=== PATIENT | male | born 1985 | race Caucasian/White ===

== ENCOUNTER 2020-03-16 08:59 | Emergency (ER) | payer SELFPAY ==
[2020-03-16 09:01] VITALS: BP 193/108; PULSE 90; RESP 16; TEMP 36.1; O2SAT 98; BMI 31.1
--- NOTE | 2020-03-16 09:07 | CT_ITS ---
EXAMINATION: CT ABDOMEN AND PELVIS WITHOUT CONTRAST CLINICAL INFORMATION: Left flank pain, hematuria and kidney stones. COMPARISON: None TECHNIQUE: Multidetector volumetric imaging was performed from the superior aspect of the liver through the pubic symphysis. Sagittal and coronal reformatted images were obtained on the technologist's workstation. This CT examination was performed using dose optimization techniques as appropriate, variously including the following: *Automated exposure control *Adjustment of mA and/or kV according to patient size (this includes techniques or standardized protocols for targeted exams where dose is matched to indication/reason for exam; i.e. extremities or head) *Use of iterative reconstruction technique DLP: 719 mGy-cm FINDINGS: LUNG BASES: The lung bases are clear. The heart size is normal. LIVER, GALLBLADDER, AND BILIARY TREE: The liver is normal in size, shape, and attenuation. No focal hepatic lesion or biliary ductal dilatation is present. The gallbladder is unremarkable with no evidence of radiopaque gallstones, gallbladder wall thickening, or obvious pericholecystic inflammatory changes. PANCREAS: Unremarkable. SPLEEN: Unremarkable. ADRENAL GLANDS: Unremarkable. KIDNEYS AND URETERS: The kidneys are normal in size, shape, and attenuation. There There there are several 3 mm upper, mid and lower pole left renal calculi. The largest lower pole left renal calculi measures 5 mm. Is no radiopaque calculi seen in the right kidney. No caliectasis or hydronephrosis seen. BLADDER: Unremarkable. GASTROINTESTINAL TRACT: There is scattered stool and gas seen throughout the colon without distention. The small bowel loops are normal caliber. Appendix and the IC junction is normal. The stomach is nondistended. No inflammatory changes seen in the abdomen. ABDOMINAL WALL: No significant hernia is appreciated. LYMPH NODES: Normal. VASCULAR: Unremarkable. PELVIC VISCERA: No free fluid or free air seen. The prostate gland is normal size with central gland constipation. OSSEOUS STRUCTURES: No lytic or sclerotic process seen. CT/CT abdomen pelvis wo con IMPRESSION: Multiple left renal calculi with the largest radiopaque calculi lower pole measuring 5 mm. No caliectasis or hydronephrosis seen. No radiopaque right renal calculi seen. Normal appendix. Mild constipation.
--- NOTE | 2020-03-16 09:36 | ED_ITS ---
HPI - Abdominal Pain General Chief Complaint: Abdominal Pain Stated Complaint: Flank pain Time Seen by Provider: 03/16/20 09:06 Source: patient Mode of arrival: ambulatory Limitations: no limitations History of Present Illness HPI narrative: 35 y/o male with history of kidney stones since age 13 requiring multiple surgical interventions in the past presents with left flank pain for the last 2 days. He states last night the pain got worse and was doubling him over. He developed bloody urine and painful urination last night as well. He denies fever, chills, N/V. He states the pain starts in his left flank and ra diates throughout his whole abdomen. MD elicited complaint: flank pain Pertinent past history: kidney stones Onset (ago): day(s) (2) Pain Consistency: constant Location: L flank Severity: severe Pain scale (0-10): 10 Quality: sharp Radiation: LLQ Migration to: no migration Exacerbating factors: movement Relieving factors: nothing Context: history of similar episodes Associated symptoms: dysuria and hematuria Related Data Previous Rx's Medication Instructions Recorded erythromycin 1 appl OPHTHALMIC (EYE) Q8H #3.5 g 03/16/20 oxycodone 5 mg PO Q8H PRN #5 tab 03/16/20 tamsulosin [Flomax] 0.4 mg PO BEDTIME #10 cap 03/16/20 Allergies Allergy/AdvReac Type Severity Reaction Status Date / Time From YELLOW JACKET VENOM Allergy Severe ANAPHYLAXIS Uncoded 12/10/19 15:35 TREATMENT Review of Systems Review of Systems Constitutional: No Fever, No Chills ENT/Mouth: No sore throat, No Rhinorrhea, No Swallowing Difficulty Eyes: + Eye Pain, No Swelling, + Redness Cardiovascular: No Chest Pain, No SOB, No Orthopnea, No Edema Respiratory: No Cough, No Sputum, No Wheezing, No dyspnea Gastrointestinal: No Nausea, No Vomiting, No Diarrhea, + abdominal Pain, No Hematochezia, No Melena Genitourinary: + Dysuria, No Urinary Frequency, + Hematuria Musculoskeletal: No joint pain, No Myalgias Skin: No Skin Lesions, No rash Neuro: No Weakness, No Numbness, No Dizziness, No Headache Heme/Lymph: No Bruising, No Lymphadenopathy Endocrine: No Polyuria, No Polydipsia Physical Exam Vital Signs: Vital Signs: Last Vital Signs Temp 97.7 F 03/16/20 11:11 Pulse 80 12/23/20 11:11 Resp 15 03/16/20 11:11 BP 143/89 H 03/16/20 11:11 Pulse Ox 98 03/16/20 11:11 Body Mass Index 31.1 Appearance: Alert. Oriented X3. No acute distress. Eyes: Pupils equal, round and reactive to light. Mild conjunctival injection of lower left eye, no drainage ENT: Pharynx normal. Neck: Normal inspection. Neck supple. CVS: Normal heart rate and rhythm. Pulses normal. Respiratory: No respiratory distress. Breath sounds normal. Abdomen: Soft with mild diffuse tenderness, mostly in LLQ. CVA tenderness on the left +BS x4 Skin: Skin warm and dry. Normal skin color. Normal skin turgor. No rashes. Extremities: No lower extremity edema. Neuro: Oriented X 3. No motor deficit. No sensory deficit. Course Course Course Narrative: 35 yo male presenting with left flank pain, hematuria, dysuria - hx kidney stones. Concern for obstructing stone, possible infection. Labs and CT scan pending. IVF and Toradol ordered for now. Significant elevation of BP noted. no hx HTN, likely pain related. Denies chest pain, headache vision changes. He does c/o L>R eye pain, redness, and drainage, daughter with pink eye at home. Will terat for bacterial conjunctivitis. Reevaluation(s) Reevaluation #1: CT scan shows multiple left renal calculi with the largest calculi in lower pole measuring 5mm. No hydronephrosis. Patient likely passed a stone last night. Will give dose of Decadron for ureteral inflammation and Flomax while awaiting UA. Reevaluation #2: UA negative for infection or blood. Pain controlled after Toradol. He likely passed a stone this morning. Will refer to Urology. Stable for d/c MDM - Abdominal Pain Lab Data Result diagrams: 03/16/20 09:33 03/16/20 09:33 Labs: Lab Results 03/16/20 03/16/20 03/16/20 Range/Units 09:33 09:33 11:07 WBC 9.5 (4.8-10.8) X10*3/uL RBC 5.29 (4.60-5.80) X10*6/uL Hgb 16.5 (14.0-18.0) g/dl Hct 48.0 (42-52) % MCV 90.7 (80-98) fL MCH 31.2 (27.0-33.0) pg MCHC 34.4 (31.0-36.0) g/dl RDW 12.1 (11.0-16.0) % Plt Count 260 (160-400) X10*3/uL MPV 9.8 (9.4-12.4) fL Immature Gran % (Auto) 1.4 H (0.0-0.4) % Neut % (Auto) 57.6 (45-73) % Lymph % (Auto) 27.1 (20-40) % [place] % (Auto) 9.9 (2-11) % Eos % (Auto) 3.0 (0-4) % Baso % (Auto) 1.0 (0-2) % Lymph # (Auto) 2.6 (1.2-4.9) X10*3/uL [place] # (Auto) 0.9 (0.1-1.2) X10*3/uL Eos # (Auto) 0.3 (0.0-0.4) X10*3/uL Baso # (Auto) 0.1 (0.0-0.2) X10*3/uL Abs Immat Gran (auto) 0.13 H (0.00-0.03) X10*3/uL Absolute Neuts (auto) 5.5 (2.0-8.3) X10*3/uL Absolute Nucleated RBC 0.000 (0.0-0.012) X10*3/uL Nucleated RBC % (auto) 0.0 (0.0-0.2) /100WBC Sodium 138 (135-145) mmol/L Potassium 4.4 (3.3-5.1) mmol/l Chloride 103 (96-108) mmol/L Carbon Dioxide 28 (22-29) mmol/L Anion Gap 11 L (12-20) BUN 15 (9-16) mg/dL Creatinine 0.75 (0.5-1.4) mg/dL Estim Creat Clear Calc 173.3 Estimated GFR > 60 Random Glucose 110 (60-115) mg/dL Calcium 9.0 (8.4-10.2) mg/dL Magnesium 1.9 (1.6-2.6) mg/dL Total Bilirubin 0.5 (0.0-1.0) mg/dL Direct Bilirubin 0.2 (0.0-0.5) mg/dL AST 67 H (5-37) U/L ALT 124 H (0-40) U/L Alkaline Phosphatase 59 (39-117) U/L Total Protein 7.4 (6.5-8.0) g/dL Albumin 4.4 (3.5-5.0) g/dL Lipase 30 (8-78) U/L Urine Color YELLOW Urine Appearance CLEAR Urine pH 6.0 (5.0-8.0) Ur Specific [place] 1.025 (1.005-1.025) Urine Protein NEG (NEG-TRACE) MG/DL Urine Glucose (UA) NEG (NEG) MG/DL Urine Ketones NEG (NEG) MG/DL Urine Blood NEG (NEG) Urine Nitrite NEG (NEG) Ur Leukocyte Esterase NEG (NEG) Critical Care Time Critical Care Time Critical Care Time: No Discharge Plan Discharge Clinical Impression: Calculus of kidney Patient Disposition: Home, Self-Care Instructions: Kidney Stones (ED), How to Strain Your Urine (ED) Additional Instructions: Your CT scan showed kidney stones within your kidney, none blocking your urinary tract. You likely passed a stone on your own. Your urine showed no blood or infection. You should follow up with a Urology doctor. If you have recurrent severe pain, come back to the ER for further evaluation. Prescriptions: New tamsulosin [Flomax] 0.4 mg capsule 0.4 mg PO BEDTIME Qty: 10 RF: 0 oxycodone 5 mg tablet 5 mg PO Q8H PRN (Reason: pain) Qty: 5 RF: 0 erythromycin 5 mg/gram (0.5 %) ointment 1 appl ophthalmic (eye) Q8H Qty: 3.5 RF: 0 Referrals: Tyson Robin MD [Physician] - 2 days Stand Alone Forms: Work/School Release Interventions: ED Discharge Assessment Last Done: 03/16/20 11:36 Discharge Date/Time: 03/16/20 11:39 [facility] Past Medical History Attestation statement: The following information was validated with the patient. Medical History Kidney stone Social History Social History Smoked in Last 30 Days: Yes Use of substances other than those prescribed or required for medical reasons: No Advance Directives: No Advance Directives Information Provided: Yes
[2020-03-16 09:42] LABS: MANUAL DIFF FLAG NO
[2020-03-16] MEDS: Ketorolac Tromethamine 30 MG/ML VIAL IVPUSH (09:42)
[2020-03-16] MEDS: 0.9 % Sodium Chloride 1,000 ML 999 ML IVCONT (09:43)
[2020-03-16 09:46] LABS: Basophils Absolute Auto 0.1 X10*3/uL (0.0-0.2); Eosinophils Absolute Auto 0.3 X10*3/uL (0.0-0.4); Hemoglobin 16.5 g/dl (14.0-18.0); Imm Gran Abs Auto 0.13 X10*3/uL (0.00-0.03); Imm Gran Pct Auto 1.4 % (0.0-0.4); Lymphocytes Absolute Auto 2.6 X10*3/uL (1.2-4.9); Lymphocytes Percent Auto 27.1 % (20-40); Mean Corpuscular HGB Conc 34.4 g/dl (31.0-36.0); Mean Corpuscular Hemoglobin 31.2 pg (27.0-33.0); Mean Corpuscular Volume 90.7 fL (80-98); Mean Platelet Volume 9.8 fL (9.4-12.4); Monocytes Absolute Auto 0.9 X10*3/uL (0.1-1.2); Monocytes Percent Auto 9.9 % (2-11); Neutrophils Absolute Auto 5.5 X10*3/uL (2.0-8.3); Neutrophils Percent Auto 57.6 % (45-73); Platelet Count 260 X10*3/uL (160-400); Red Blood Count 5.29 X10*6/uL (4.60-5.80); Red Cell Distribution Width 12.1 % (11.0-16.0); White Blood Count 9.5 X10*3/uL (4.8-10.8)
[2020-03-16 09:51] VITALS: BP 144/91; PULSE 87; RESP 20; TEMP 36.5; O2SAT 97
[2020-03-16 10:15] LABS: Alanine Aminotransferase 124 U/L (0-40); Albumin Level 4.4 g/dL (3.5-5.0); Alkaline Phosphatase 59 U/L (39-117); Anion Gap 11 (12-20); Aspartate Amino Transferase 67 U/L (5-37); Bilirubin Direct 0.2 mg/dL (0.0-0.5); Bilirubin Total 0.5 mg/dL (0.0-1.0); Blood Urea Nitrogen 15 mg/dL (9-16); Carbon Dioxide 28 mmol/L (22-29); Chloride 103 mmol/L (96-108); Creatinine Clr Calc Pharmacy 173.3; Estimated Glomerular Filt Rate > 60; Glucose Random 110 mg/dL (60-115); Lipase 30 U/L (8-78); Magnesium 1.9 mg/dL (1.6-2.6); Potassium 4.4 mmol/l (3.3-5.1); Sodium 138 mmol/L (135-145); Total Protein 7.4 g/dL (6.5-8.0)
[2020-03-16] MEDS: Tamsulosin HCL 0.4 MG CAPSULE PO (10:59)
[2020-03-16 11:11] VITALS: BP 143/89; PULSE 80; RESP 15; TEMP 36.5; O2SAT 98
[2020-03-16 11:19] LABS: Glucose Urine UA NEG (NEG); Leukocyte Esterase Urine NEG (NEG); Nitrite Urine NEG (NEG); Specific Gravity - Urine 1.025 (1.005-1.025); Urine Blood NEG (NEG); Urine Ketones NEG (NEG); Urine Protein NEG (NEG-TRACE)
[2020-03-16 11:20] LABS: Appearance Urine CLEAR; Color Urine YELLOW
== END 2020-03-16 11:39 | disposition home or self-care (01) ==
PROVIDERS: Physician Assistant; Emergency Provider Emergency Medicine
DX: N20.0 Calculus of kidney (principal); Z87.442 Personal history of urinary calculi
CPT/HCPCS: 36415; 74176; 80048; 80076; 81003; 83690; 83735; 85025; 96361; 96374; 96375; 99285; J1100; J1885

== ENCOUNTER 2020-10-01 13:40 | Emergency (ER) | payer MEDICAID, SELFPAY ==
--- NOTE | ~2020-10-01 | XR_ITS ---
EXAMINATION: XR FOREARM, LEFT CLINICAL INFORMATION: Pain COMPARISON: None TECHNIQUE: AP and lateral views of the left forearm were obtained. FINDINGS: The bones and soft tissues are normal. No fracture. Imaged portions of the elbow and wrist are unremarkable. Possible linear radiopaque foreign body overlying the soft tissues of the distal humerus. XR/XR forearm LT 2V IMPRESSION: Possible linear radiopaque foreign body overlying the soft tissues of the distal humerus.
[2020-10-01 13:43] VITALS: BP 139/92; PULSE 102; RESP 16; O2SAT 96; BMI 31.8
--- NOTE | 2020-10-01 14:51 | ED_ITS ---
HPI - Skin/Abscess/Foreign Bdy General Chief complaint: Skin/Abscess/Foreign Body Stated complaint: NAIL PW L ARM Time Seen by Provider: 10/01/20 14:49 Source: patient Limitations: no limitations History of Present Illness HPI narrative: This is a 35-year-old male who was at work yesterday when a screw got stuck in his left forearm. The patient was unloading citing from a truck when asked grew punctured his forearm, going about 2 cm. Patient was able to remove the screw and states there is no screw or other foreign body remaining in there. He has noted some localized pain and redness to the site. Denies any fever. He denies any history of diabetes. His last tetanus immunization he believes was in about 2004. He did have some feeling of numbness and tingling to his hand earlier Related Data Previous Rx's Medication Instructions Recorded erythromycin 1 appl OPHTHALMIC (EYE) Q8H #3.5 g 03/16/20 oxycodone 5 mg PO Q8H PRN #5 tab 03/16/20 tamsulosin [Flomax] 0.4 mg PO BEDTIME #10 cap 03/16/20 cephalexin [Keflex] 750 mg PO TID #20 cap 10/01/20 Allergies Allergy/AdvReac Type Severity Reaction Status Date / Time From YELLOW JACKET VENOM Allergy Severe ANAPHYLAXIS Uncoded 12/10/19 15:35 TREATMENT Review of Systems Constitutional: Constitutional: Denies fever(s) Integumentary/Breasts: Comments: Left forearm puncture wound/erythema Neurologic: Denies focal weakness and Reports paresthesias (Some partial numbness and tingling to left hand) [facility] Past Medical History Medical History Kidney stone Social History Social History Advance Directives: Yes Advance Directives Information Provided: Yes Advance Directives on File: No Physical Exam Vital Signs: Vital Signs: Last Vital Signs Temp 97.8 F 10/01/20 15:29 Pulse 90 10/01/20 15:29 Resp 20 10/01/20 15:29 BP 146/96 H 10/01/20 15:29 Pulse Ox 98 10/01/20 15:29 Body Mass Index 31.8 Const: General: cooperative and healthy appearing Orientation/consciousness: patient oriented x3 Eyes: General: appearance normal, both eyes and all related structures Resp: Effort & Inspection: normal respiratory effort Auscultation: clear to auscultation bilaterally Cardio: Rate: regular rate Rhythm: regular rhythm Heart sounds: S1 normal heart sound present and S2 normal heart sound present Neuro: General: patient oriented x3 Extrem: Other: Puncture wound to left proximal forearm, with localized erythema about 2 in in diameter. No drainage or fluctuance. Left hand is neurovascular intact normal distal pulses MDM - Skin/Abscess/Foreign Bdy MDM Narrative Medical decision making narrative: Patient with a puncture wound from a screw to his forearm yesterday. Tetanus was updated. The patient was given Keflex 1 g p.o. ( I ordered Ancef 1 g IV but the patient refused parental antibiotics). X- ray showed no foreign body in the area of the patient's wound. The patient's wound was scrubbed with saline, irrigated and antibiotic ointment and a dressing were applied. Patient is being prescribed Keflex and was advised that he is to keep a close eye for any signs of worsening infection given that this occurred yesterday and artery shows some evidence of infection Discharge Plan Discharge Clinical Impression: Puncture wound Patient Disposition: Home, Self-Care Instructions: Puncture Wound (ED) Additional Instructions: Soak the wound in warm water for 15 minutes to 3 times a day. Apply antibiotic ointment such as Polysporin to the wound twice a day. Take the cephalexin as prescribed. Return for any worsened symptoms such as increased redness or swelling. Prescriptions: New cephalexin [Keflex] 750 mg capsule 750 mg PO TID Qty: 20 RF: 0 No Action tamsulosin [Flomax] 0.4 mg capsule 0.4 mg PO BEDTIME Qty: 10 RF: 0 oxycodone 5 mg tablet 5 mg PO Q8H PRN (Reason: pain) Qty: 5 RF: 0 erythromycin 5 mg/gram (0.5 %) ointment 1 appl ophthalmic (eye) Q8H Qty: 3.5 RF: 0 Interventions: ED Discharge Assessment Last Done: 10/01/20 15:29 Discharge Date/Time: 10/01/20 15:31
[2020-10-01] MEDS: Diphth,Pertus(ACell),Tet Adult 0.5 ML SYRINGE IM (15:01)
[2020-10-01] MEDS: cephALEXin 500 MG CAPSULE 1000 MG PO (15:08)
[2020-10-01 15:29] VITALS: BP 146/96; PULSE 90; RESP 20; TEMP 36.6; O2SAT 98
== END 2020-10-01 15:31 | disposition home or self-care (01) ==
PROVIDERS: Emergency Provider Emergency Medicine
DX: S51.832A Puncture wound without foreign body of left forearm, initial encounter (principal); W45.0XXA Nail entering through skin, initial encounter; Y93.89 Activity, other specified; Y92.9 Unspecified place or not applicable; Y99.0 Civilian activity done for income or pay
CPT/HCPCS: 73090; 90471; 90715; 99283; 99284

== ENCOUNTER 2020-10-05 10:40 | Emergency (ER) | payer MEDICAID, SELFPAY ==
--- NOTE | ~2020-10-05 | XR_ITS ---
EXAMINATION: RIGHT HAND AND RIGHT FOREARM CLINICAL INFORMATION: Status post dog bite, infection. COMPARISON: None TECHNIQUE: 3 views right hand and 2 views right forearm FINDINGS: Right forearm: There is no visible fracture, dislocation or subluxation involving the right radius or the ulna. Elbow joint appears normal. Right hand: There is a small bone fragment proximal to the proximal end of fifth metacarpal likely old avulsion injury. There is moderate soft tissue swelling along the ulnar aspect of palm/hypothenar eminence but no soft tissue gas or foreign body seen following dog bite. XR/XR forearm RT 2V IMPRESSION: Unremarkable right forearm. Moderate soft tissue swelling along the right ulnar aspect/hyperthenar eminence of the arm. No radiopaque foreign body or gas seen.
--- NOTE | ~2020-10-05 | XR_ITS ---
EXAMINATION: RIGHT HAND AND RIGHT FOREARM CLINICAL INFORMATION: Status post dog bite, infection. COMPARISON: None TECHNIQUE: 3 views right hand and 2 views right forearm FINDINGS: Right forearm: There is no visible fracture, dislocation or subluxation involving the right radius or the ulna. Elbow joint appears normal. Right hand: There is a small bone fragment proximal to the proximal end of fifth metacarpal likely old avulsion injury. There is moderate soft tissue swelling along the ulnar aspect of palm/hypothenar eminence but no soft tissue gas or foreign body seen following dog bite. XR/XR hand RT min 3V IMPRESSION: Unremarkable right forearm. Moderate soft tissue swelling along the right ulnar aspect/hyperthenar eminence of the arm. No radiopaque foreign body or gas seen.
[2020-10-05 10:47] VITALS: BP 152/108; PULSE 116; RESP 18; TEMP 37.3; O2SAT 96; BMI 32.5
[2020-10-05] MEDS: Ibuprofen 800 MG TABLET PO (11:00)
[2020-10-05] MEDS: HYDROcodone Bit/Acetam 5/325 TABLET 1 TAB PO (11:00)
[2020-10-05] MEDS: Amoxicillin/Potassium Clav 875 MG TABLET PO (11:01)
--- NOTE | 2020-10-05 11:13 | ED_ITS ---
HPI - Extremity Problem General Chief complaint: Extremity Injury, Upper Stated complaint: rt hand injury Time Seen by Provider: 10/05/20 10:53 Source: patient Mode of arrival: ambulatory Limitations: no limitations History of Present Illness HPI Narrative: 35 y/ male presenting with right hand pain and forearm pain after he fell onto concrete last night. He reports his dog ran under him and took out his legs causing him to fall backward with all of his weight onto his right hand. He sustained a laceration to the back his hand between his knuckles of 4th and 5th fingers. He washed out the wound with H2O2 last night and went to bed. This morning he woke up with extreme pain in his right hand that radiates all the way up his forearm to his elbow. He has very limited ROM of his fingers and cant move his pinky finger at all. He reports being sweaty this morning and burning hot with a subjective fever at home. He denies numbness or tingling. MD Complaint: extremity pain and joint paint Onset (ago): hour(s) (12) Pain Consistency: constant Location: right and upper extremity Severity scale (1-10): 9 Quality: burning, aching and sharp Radiation: proximal Relieving factors: cold therapy, immobilization and elevation Exacerbating factors: range of motion and palpation Associated symptoms: fever Related Data Previous Rx's Medication Instructions Recorded erythromycin 1 appl OPHTHALMIC (EYE) Q8H #3.5 g 03/16/20 oxycodone 5 mg PO Q8H PRN #5 tab 03/16/20 tamsulosin [Flomax] 0.4 mg PO BEDTIME #10 cap 03/16/20 cephalexin [Keflex] 750 mg PO TID #20 cap 10/01/20 cephalexin 500 mg PO Q6H 7 Days #28 cap 10/05/20 hydrocodone-acetaminophen 1 tab PO Q4-6H PRN #5 tab 10/05/20 Allergies Allergy/AdvReac Type Severity Reaction Status Date / Time From YELLOW JACKET VENOM Allergy Severe ANAPHYLAXIS Uncoded 12/10/19 15:35 TREATMENT Review of Systems Review of Systems: Constitutional: + Fever, No Chills Cardiovascular: No Chest Pain, No SOB Respiratory: No Cough, No Sputum, No Wheezing, No dyspnea Gastrointestinal: No Nausea, No Vomiting, No Diarrhea, No abdominal Pain Genitourinary: No Dysuria, No Urinary Frequency, No Hematuria Musculoskeletal: + joint pain, No Myalgias Skin: + Skin Lesions, No rash Neuro: No Weakness, No Numbness, No Dizziness, No Headache Psych: No Anxiety/Panic, No Depression Heme/Lymph: No Bruising, No Lymphadenopathy Endocrine: No Polyuria, No Polydipsia [facility] Past Medical History Medical History Kidney stone Social History Social History (Updated 10/05/20 @ 13:35 by ESMER Rosenbaum) Alcohol intake: current Alcohol intake frequency: 0-2 drinks per day Physical Exam Vital Signs: Vital Signs: Last Vital Signs Temp 99.2 F 10/05/20 10:47 Pulse 116 H 10/05/20 10:47 Resp 18 10/05/20 10:47 BP 152/108 H 10/05/20 10:47 Pulse Ox 96 10/05/20 10:47 Body Mass Index 32.5 Appearance: Alert. Oriented X3. Appears to be in pain, diaphoretic HEENT: normal inspection CVS: Tachycardic, regular rhythm. Pulses normal. Respiratory: No respiratory distress. Lungs CTAB Skin: Skin warm, diaphoretic. Normal skin color. Normal skin turgor. No rashes. Extremities: right hand with deep complex laceration on the dorsal aspect between MCP 4 and 5. warm, erythematous and tender with serous drainage. Very te nder. unable to extend 5th digit, able to flex. good cap refill. Neuro: Oriented X 3. No sensory deficit, limited movement of 5th digit. Course Course Course Narrative: 35 y/o male presenting with right hand pain and swelling with laceration after a fall last night. Concern for fracture and acute infection, possibly into the joint space. Possible extensor tendon injury with inability to extend 5th digit on right hand. XR's ordered. Dr. Griffin evaluated - blood work ordered and Ortho contacted for recs ?washout. Given dose of IV antibiotics now as well as pain control. Wound was irrigated extensively was saline. Reevaluation(s) Reevaluation #1: Ortho evaluated the patient at the bedside - recommending washout in the OR tomorrow with Dr. Lehman. WBC 18.8 with a normal lactic acid. Cultures sent. Will continue PO abx for infection of the hand. Ortho aware of leukocytosis and ok with proceeding with washout tomorrow. Stable for d/c with antibiotics, pain control and f/u with Ortho for washout tomorrow. Patient placed in splint by tach with adequate placement, sling provided for comfort. Pain and tachycardia improved upon discharge. Consultations Consultation #1: Ortho - Petra Simpson PA-C MDM - Extremity (Nontraumatic) Lab Data Result diagrams: 10/05/20 12:03 10/05/20 12:02 Labs: Lab Results 10/05/20 10/05/20 10/05/20 Range/Units 12:02 12:02 12:03 WBC (4.8-10.8) X10*3/uL RBC (4.60-5.80) X10*6/uL Hgb (14.0-18.0) g/dl Hct (42-52) % MCV (80-98) fL MCH (27.0-33.0) pg MCHC (31.0-36.0) g/dl RDW (11.0-16.0) % Plt Count (160-400) X10*3/uL MPV (9.4-12.4) fL Immature Gran % (Auto) (0.0-0.4) % Neut % (Auto) (45-73) % Lymph % (Auto) (20-40) % [place] % (Auto) (2-11) % Eos % (Auto) (0-4) % Baso % (Auto) (0-2) % Lymph # (Auto) (1.2-4.9) X10*3/uL [place] # (Auto) (0.1-1.2) X10*3/uL Eos # (Auto) (0.0-0.4) X10*3/uL Baso # (Auto) (0.0-0.2) X10*3/uL Abs Immat Gran (auto) (0.00-0.03) X10*3/uL Absolute Neuts (auto) (2.0-8.3) X10*3/uL Absolute Nucleated RBC (0.0-0.012) X10*3/uL Nucleated RBC % (auto) (0.0-0.2) /100WBC Smear Tech's Comments ESR 7 (0-15) MM/HR Sodium 137 (135-145) mmol/L Potassium 4.3 (3.3-5.1) mmol/L Chloride 100 (96-108) mmol/L Carbon Dioxide 23 (22-29) mmol/L Anion Gap 18 (12-20) BUN 9 (9-16) mg/dL Creatinine 0.82 (0.5-1.4) mg/dL Estim Creat Clear Calc 161.7 Estimated GFR > 60 Random Glucose 110 (60-115) mg/dL Lactic Acid 1.4 (0.5-2.0) mmol/L Calcium 9.9 D (8.4-10.2) mg/dL Magnesium 1.4 L* (1.6-2.6) mg/dL C-Reactive Protein 1.47 H (< or = 0.50) mg/dL 10/05/20 10/05/20 Range/Units 12:03 12:03 WBC 18.8 H (4.8-10.8) X10*3/uL RBC 5.78 (4.60-5.80) X10*6/uL Hgb 17.1 (14.0-18.0) g/dl Hct 50.0 (42-52) % MCV 86.5 (80-98) fL MCH 29.6 (27.0-33.0) pg MCHC 34.2 (31.0-36.0) g/dl RDW 13.7 (11.0-16.0) % Plt Count 285 (160-400) X10*3/uL MPV 9.7 (9.4-12.4) fL Immature Gran % (Auto) 1.5 H (0.0-0.4) % Neut % (Auto) 78.3 H (45-73) % Lymph % (Auto) 10.1 L (20-40) % [place] % (Auto) 8.4 (2-11) % Eos % (Auto) 1.1 (0-4) % Baso % (Auto) 0.6 (0-2) % Lymph # (Auto) 1.9 (1.2-4.9) X10*3/uL [place] # (Auto) 1.6 H (0.1-1.2) X10*3/uL Eos # (Auto) 0.2 (0.0-0.4) X10*3/uL Baso # (Auto) 0.1 (0.0-0.2) X10*3/uL Abs Immat Gran (auto) 0.29 H (0.00-0.03) X10*3/uL Absolute Neuts (auto) 14.7 H (2.0-8.3) X10*3/uL Absolute Nucleated RBC 0.000 (0.0-0.012) X10*3/uL Nucleated RBC % (auto) 0.0 (0.0-0.2) /100WBC Smear Tech's Comments VERIFIED ESR (0-15) MM/HR Sodium Cancelled (135-145) mmol/L Potassium Cancelled (3.3-5.1) mmol/L Chloride Cancelled (96-108) mmol/L Carbon Dioxide Cancelled (22-29) mmol/L Anion Gap Cancelled (12-20) BUN Cancelled (9-16) mg/dL Creatinine Cancelled (0.5-1.4) mg/dL Estim Creat Clear Calc Cancelled Estimated GFR Cancelled Random Glucose Cancelled (60-115) mg/dL Lactic Acid (0.5-2.0) mmol/L Calcium Cancelled (8.4-10.2) mg/dL Magnesium (1.6-2.6) mg/dL C-Reactive Protein Cancelled (< or = 0.50) mg/dL Discharge Plan Discharge Clinical Impression: Infection of hand Fracture of hand Qualifiers: Encounter type: initial encounter Fracture type: closed Laterality: right Qualified Code(s): S62.91XA - Unspecified fracture of right wrist and hand, initial encounter for closed fracture Patient Disposition: Home, Self-Care Instructions: Hand Fracture (ED), Acute Wounds (ED) Additional Instructions: Your x-ray showed a small fracture in your hand upon review by the Hand Surgeon. There is concern for infection and injury to the tendons. Present for joint wash out tomorrow as discussed with Orthopedics. Keep the splint in place until seen by Ortho tomorrow. Take the prescribed medication as needed for severe pain. DO NOT drink alcohol with this medication. Elevate and ice your hand when possible. Wear the sling as needed for comfort. If you develop worsening pain, fever or any other concerning symptom come back to the ER for further evaluation. Prescriptions: New cephalexin 500 mg capsule 500 mg PO Q6H 7 Days Qty: 28 RF: 0 hydrocodone-acetaminophen 5-325 mg tablet 1 tab PO Q4-6H PRN (Reason: pain) Qty: 5 RF: 0 No Action tamsulosin [Flomax] 0.4 mg capsule 0.4 mg PO BEDTIME Qty: 10 RF: 0 oxycodone 5 mg tablet 5 mg PO Q8H PRN (Reason: pain) Qty: 5 RF: 0 erythromycin 5 mg/gram (0.5 %) ointment 1 appl ophthalmic (eye) Q8H Qty: 3.5 RF: 0 cephalexin [Keflex] 750 mg capsule 750 mg PO TID Qty: 20 RF: 0 Stand Alone Forms: Work/School Release Interventions: ED Discharge Assessment Last Done: 10/05/20 13:17 Discharge Date/Time: 10/05/20 13:18
[2020-10-05] MEDS: Piperacillin Sodium/Tazobactam 3.375 GM in 0.9 % Sodium Chloride 50 ML IV (12:10)
[2020-10-05 12:12] LABS: Basophils Absolute Auto 0.1 X10*3/uL (0.0-0.2); Basophils Percent Auto 0.6 % (0-2); Eosinophils Absolute Auto 0.2 X10*3/uL (0.0-0.4); Eosinophils Percent Auto 1.1 % (0-4); Imm Gran Abs Auto 0.29 X10*3/uL (0.00-0.03); Imm Gran Pct Auto 1.5 % (0.0-0.4); Lymphocytes Absolute Auto 1.9 X10*3/uL (1.2-4.9); Lymphocytes Percent Auto 10.1 % (20-40); MANUAL DIFF FLAG SCAN; Mean Corpuscular HGB Conc 34.2 g/dl (31.0-36.0); Mean Corpuscular Hemoglobin 29.6 pg (27.0-33.0); Mean Corpuscular Volume 86.5 fL (80-98); Mean Platelet Volume 9.7 fL (9.4-12.4); Monocytes Absolute Auto 1.6 X10*3/uL (0.1-1.2); Monocytes Percent Auto 8.4 % (2-11); Neutrophils Absolute Auto 14.7 X10*3/uL (2.0-8.3); Neutrophils Percent Auto 78.3 % (45-73); Platelet Count 285 X10*3/uL (160-400); Red Blood Count 5.78 X10*6/uL (4.60-5.80); Red Cell Distribution Width 13.7 % (11.0-16.0); SCAN SMEAR FLAG 1; White Blood Count 18.8 X10*3/uL (4.8-10.8)
[2020-10-05 12:14] LABS: Hemoglobin 17.1 g/dl (14.0-18.0)
[2020-10-05 12:33] LABS: SLIDE REVIEW VERIFIED
[2020-10-05 12:39] LABS: Lactic Acid 1.4 mmol/L (0.5-2.0)
[2020-10-05 12:53] LABS: Erythrocyte Sedimentation Rate 7 MM/HR (0-15)
[2020-10-05 12:53] LABS: Anion Gap 18 (12-20); Blood Urea Nitrogen 9 mg/dL (9-16); C Reactive Protein 1.47 mg/dL (< or = 0.50); Calcium 9.9 mg/dL (8.4-10.2); Carbon Dioxide 23 mmol/L (22-29); Chloride 100 mmol/L (96-108); Creatinine Clr Calc Pharmacy 161.7; Estimated Glomerular Filt Rate > 60; Glucose Random 110 mg/dL (60-115); Magnesium 1.4 mg/dL (1.6-2.6); Potassium 4.3 mmol/L (3.3-5.1); Sodium 137 mmol/L (135-145)
[2020-10-05] MEDS: Magnesium Oxide 400 MG TABLET 800 MG PO (13:02)
== END 2020-10-05 13:18 | disposition home or self-care (01) ==
PROVIDERS: Physician Assistant; Emergency Provider Emergency Medicine
DX: S62.91XA Unspecified fracture of right hand, initial encounter for closed fracture (principal); L08.9 Local infection of the skin and subcutaneous tissue, unspecified; M25.531 Pain in right wrist; W01.0XXA Fall on same level from slipping, tripping and stumbling without subsequent striking against object, initial encounter; Y93.K1 Activity, walking an animal; Y92.480 Sidewalk as the place of occurrence of the external cause; Y99.9 Unspecified external cause status; Z79.899 Other long term (current) drug therapy
CPT/HCPCS: 36415; 73090; 73130; 80048; 83605; 83735; 85025; 85652; 86140; 87040; 96360; 96361; 99284; J2543

== ENCOUNTER 2020-10-06 07:27 | Day surgery (SDC) | payer MEDICAID, SELFPAY ==
--- NOTE | 2020-10-05 16:57 | P.HPOP_ITS ---
History of Present Illness History of Present Illness Date of Service: 10/05/20 Chief complaint: injury of right hand Narrative: Bhavik Diaz is a 35 year old male who presents to the ED after sustaining a fall yesterday evening. He states that his dog ran into him causing him to fall backwards landing on his right hand. He suffered a laceration over the fifth MCP joint. He presented to the ED were he had significant swelling in the hand and the surrounding tissue around the laceration seemed to have some purulent discharge. Orthopedics was the consulted for further evaluation and treatment. Review of Systems Review of Systems: Yes all other systems are reviewed and are negative [facility] Past Medical History Medical History Kidney stone Social History Social History (Updated 10/05/20 @ 13:35 by ESMER Rosenbaum) Alcohol intake: current Alcohol intake frequency: 0-2 drinks per day Meds Allergies Allergy/AdvReac Type Severity Reaction Status Date / Time From YELLOW JACKET VENOM Allergy Severe ANAPHYLAXIS Uncoded 12/10/19 15:35 TREATMENT Active Medications: Current Medications Generic Name Dose Route Start Last Admin Trade Name Freq PRN Reason Stop Dose Admin Cefazolin Sodium/Dextrose 2 gm in 50 mls @ 100 mls/hr 10/06/20 08:00 Ancef IV 10/06/20 08:29 PREOP ONE Physical Exam Const: General: cooperative, healthy appearing, comfortable, no acute distress, well developed, alert and awake Orientation/consciousness: patient oriented x3 HENMT: Head: Yes normal to inspection, Yes normocephalic and Yes atraumatic Eyes: General: appearance normal, both eyes and all related structures Neck: Neck: Yes normal visual inspection and Yes no lymphadenopathy Resp: Effort & Inspection: normal respiratory effort and able to speak in complete sentences Cardio: Rate: regular rate Peripheral pulses: Peripheral pulses 2+ throughout GI: Inspection: Yes normal to inspection Palpation (GI): Soft to palpation Skin: General skin exam: no rashes or lesions noted Neuro: General: patient oriented x3 Extrem: Other: Right hand moderate swelling located on the dorsal side with the majority at the laceration site and the base of the fourth and fifth metacarpals. Tenderness to palpation over the base of the 4th and 5th metacarpals. Patient is able to flex and extend all digits and demonstrate all fingers flexion and extension against resistance. Sensation is intact. Radial pulse is intact. Capillary refill is brisk. Psych: Mental Status: mental status grossly normal Results Labs Labs: All other labs normal. Assessment and Plan (1) Fracture of hand: Qualifiers: Encounter type: initial encounter Fracture type: closed Laterality: right Qualified Code(s): S62.91XA - Unspecified fracture of right wrist and hand, initial encounter for closed fracture Status: Acute Mr. Diaz is a 35 yo male who presents to the ED with a right hand laceration over the 5th MCP. X-rays obtained in the ED also reveal a fracture at the base of the fourth metacarpal and an old fracture at the base of the fifth metacarpal. There is a small amount of creamy purulant discharge located at the laceration site. 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 I discussed the case with Dr. Lehman and explained the extent of the injury to the patient and options available which include surgical intervention. I explained the procedure in detail along with the length of recovery and rehab course. I explained the risk, benefits and alternatives. Risk including, but not limited to infection, blood clots, bleeding, non union or malunion of the fracture and nerve/tissue damage to surrounding areas. I answered all their questions and with their understanding they have consented to move forward with irrigation and debridement of the fifth MCP on the right hand. (2) Laceration of hand with infection: Status: Acute Quality Stroke Does the patient have a stroke diagnosis?: No VTE Prior VTE?: No VTE Risk Level:: Surgical - low VTE Device Contraindication: Procedure Contraindicated VTE Drug Contraindication: Treatment Not Indicated Procedures Date of Service Date of Service: 10/05/20
[2020-10-06 07:46] VITALS: BP 172/99; PULSE 110; RESP 20; TEMP 35.9; O2SAT 95; BMI 33.2
--- NOTE | 2020-10-06 08:32 | HO.ANESPROP2 ---
[facility], [facility] Active Problems Active Problems: All Active Problems (Updated 10/06/20 @ 00:01 by Jason Estrada) Laceration of hand with infection (Acute) Past Medical History Medical History Kidney stone Social History Social History Alcohol intake: current Alcohol intake frequency: 0-2 drinks per day Patient Tobacco Use Status: Current everyday Tobacco user Tobacco use type: Cigarette Cigarette Packs Per Day: 1 Cigarettes Per Day: 20.0 Use of substances other than those prescribed or required for medical reasons: No Are you DNR?: No Advance Directives: No Advance Directives Information Provided: Yes Meds Allergies Allergy/AdvReac Type Severity Reaction Status Date / Time From YELLOW JACKET VENOM Allergy Severe ANAPHYLAXIS Uncoded 12/10/19 15:35 TREATMENT Exam Exam Date and Time: October 06, 2020 0832 Height,Weight and Vital Signs: Height 6 ft Weight 245 lb Last Vital Signs Temp 96.7 F L 10/06/20 07:46 Pulse 110 H 10/06/20 07:46 Resp 20 10/06/20 07:46 BP 172/99 H 10/06/20 07:46 Pulse Ox 95 10/06/20 07:46 Airway Mallampati Class: II TM Dist: >3cm Neck ROM: Full Loose/Missing/Broken Teeth: No Heart: RRR Assessment and Plan Assessment Anesthesia Assessment: Anesthesia Plan Discussed and Chart Reviewed Final Anesthetic Review NPO: Yes ASA Class: II Final Preanesthetic Review: No Changes in Pt Med Stat and Anes Risks/Benef Reviewed Patient Risk: Low Procedure Risk: Low Anesthetic Plan Anesthetic Plan: GA and Regional Block Disposition: Standard PACU
--- NOTE | 2020-10-06 09:39 | P.OP_ITS ---
Operative Note Operative Note Date of Service: 10/06/20 Narrative: Operative Note Narrative: Preop diagnosis: 1. Right hand infection, and septic 5th MCP joint 2. Right 5th metacarpal base fracture , nondisplaced Postop diagnosis: Same Procedure: 1. I and D right hand and right 5th MCP joint Surgeon: Stacia Lehman MD Anesthesia: Mac plus regional block Findings: purulence in the wound and within the 5th MCP joint. Wound tracks down to the 5th MCP joint just ulnar to the EDC and EDQ tendons, the tendons themselves appeared to be intact. Implants: None Tourniquet time: 20 minutes EBL: 5.0 ml Specimen: cultures x2, 1 from the soft tissue wound, and 1 from the 5th MCP joint Drains: 1 iodoform drain Complications: None Disposition: Brought to the recovery room in stable condition Plan: patient told to discontinue Keflex. Patient will start Augmentin and Bactrim both b.i.d. times 10 days. Follow-up in Ortho clinic tomorrow for wound check and to pull the drain. New dressing and a volar splint. Encouraged taking antibiotics to the end close follow-up of infection next week, need for 2nd washout possible follow-up x-rays in 4 weeks Indications: The patient is a 31 for year old man with wound over the dorsal aspect of the right 5th MCP joint and evidence of a septic 5th MCP joint . The risks and benefits of operative treatment, including but not limited to risk of damage to blood vessels, nerves, tendons, infection, recurrence, persistent pain or numbness, incomplete resolution of preoperative symptoms, or need for further surgery were discussed with the patient and they wished to proceed with surgery. Procedure: Once consent was obtained patient was brought back to the operating suite and placed in the operating table in a supine position. A regional block was performed by the anesthesia team. Perioperative antibiotics and anesthesia was administered by the anesthesia team. A tourniquet was applied to the proximal aspect of the right upper extremity and the limb was prepped and drap ed in a standard surgical fashion. The limb was elevated exsanguinated with Esmarch bandage and the tourniquet inflated to 250 mm of mercury for a total tourniquet time of 20 minutes. the patient has an approximately 2 cm ragged open wound with purulent drainage over the dorsal aspect of the right 5th MCP joint. The wound was debrided of devitalized tissue using a 15. Blade and tenotomy scissors. The wound was extended proximally approximately 1.5 cm using a 15. Blade. Careful dissection was then made down to the level of the extensor tendons. Both the EDC and EDQ tendons were identified and followed distally through the wound. The tendons themselves both appear to be intact. The wound extended deeply just ulnar to the EDQ tendon and into the 5th MCP joint. Cultures were taken from both the more superficial wound, and also from the 5th MCP joint fluid. The fluid was cloudy and yellow. The MCP joint was copiously irrigated with normal saline using an Angiocath and a syringe. The more superficial wound was also copiously irrigated with normal saline. At this point the tourniquet was deflated and hemostasis obtained with a brief period of local pressure. Once satisfied with our I and D the proximal aspect of the wound was loosely reapproximated with some 5 0 Prolene suture material. The distal original wound was left open for drainage. I also passed a single piece of iodoform gauze as a loop into the wound to facilitate drainage. An ulnar nerve block was performed by infiltrating about the ulnar nerve at the wrist with some quarter % plain Marcaine for postop pain control. A sterile dressing and a volar splint allowing for some finger range of motion was then placed. All digits were well vascularized at the conclusion of the case. .
--- NOTE | 2020-10-06 09:39 | MHC.SHP ---
Pre-Procedural Eval Section A Date of Service: 10/06/20 Section B Chief Complaint: injury of right hand, and infection Allergies: Allergies Allergy/AdvReac Type Severity Reaction Status Date / Time From YELLOW JACKET VENOM Allergy Severe ANAPHYLAXIS Uncoded 12/10/19 15:35 TREATMENT Plan I have reviewed the history and physical and performed a pertinent physical examination on my patient. No changes have occurred unless specified.
[2020-10-06 10:50] VITALS: BP 121/78; PULSE 93; RESP 14; TEMP 37.3; O2SAT 95
[2020-10-06 10:57] VITALS: BP 114/73; PULSE 104; RESP 17; O2SAT 95
[2020-10-06 11:00] VITALS: BP 138/76; PULSE 97; RESP 16; O2SAT 93
[2020-10-06 11:05] VITALS: BP 144/83; PULSE 89; RESP 16; O2SAT 96
[2020-10-06 11:25] VITALS: BP 135/75; PULSE 90; RESP 18; O2SAT 95
== END 2020-10-06 12:10 | disposition home or self-care (01) ==
PROVIDERS: Visit Provider Orthopaedic Surgery
PROC: (CPT 11043; principal; 2020-10-06 09:00)
DX: S61.206A Unspecified open wound of right little finger without damage to nail, initial encounter (principal); L08.9 Local infection of the skin and subcutaneous tissue, unspecified; B95.0 Streptococcus, group A, as the cause of diseases classified elsewhere; S62.346A Nondisplaced fracture of base of fifth metacarpal bone, right hand, initial encounter for closed fracture; W18.39XA Other fall on same level, initial encounter; Y93.89 Activity, other specified; Y92.9 Unspecified place or not applicable; Y99.8 Other external cause status
CPT/HCPCS: 11043; 87071; 87077; 87147; 87186; 87205; J0690; J1100; J2250; J2405; J3010

== ENCOUNTER → 2020-10-07 10:53 | Outpatient (BNVA) | payer OTHER, SELFPAY | PROVIDERS: Visit Provider Physician Assistant | DX: S61.419A Laceration without foreign body of unspecified hand, initial encounter (principal); L08.9 Local infection of the skin and subcutaneous tissue, unspecified | CPT/HCPCS: 99212 ==

== ENCOUNTER → 2020-10-10 13:40 | Outpatient (BNVA) | payer OTHER, SELFPAY | PROVIDERS: Visit Provider Physician Assistant | DX: S61.419D Laceration without foreign body of unspecified hand, subsequent encounter (principal); L08.9 Local infection of the skin and subcutaneous tissue, unspecified | CPT/HCPCS: 99212 ==

== ENCOUNTER 2021-01-16 16:44 | Emergency (ER) | payer OTHER, SELFPAY ==
--- NOTE | ~2021-01-16 | CT_ITS ---
EXAMINATION: CT ABDOMEN AND PELVIS WITHOUT CONTRAST CLINICAL INFORMATION: umbilical pain with hx of hernia . COMPARISON: 03/16/2020. TECHNIQUE: Multidetector volumetric imaging was performed from the superior aspect of the liver through the pubic symphysis without contrast per request. Sagittal and coronal reformatted images were obtained on the technologist workstation. This CT examination was performed using dose optimization techniques as appropriate, variously including the following: *Automated exposure control *Adjustment of mA and/or kV according to patient size (this includes techniques or standardized protocols for targeted exams where dose is matched to indication/reason for exam; i.e. extremities or head) *Use of iterative reconstruction technique DLP: 813 mGy-cm. FINDINGS: LUNG BASES: The visualized lung bases are unremarkable. LIVER, GALLBLADDER, BILIARY TREE: There is diffuse fatty infiltration of the liver with mild focal fatty sparing adjacent to the gallbladder fossa. No suspicious focal hepatic lesion. The gallbladder is unremarkable with no evidence of radiopaque gallstones, gallbladder wall thickening, or obvious pericholecystic inflammatory changes. PANCREAS: Unremarkable. SPLEEN: Unremarkable. ADRENAL GLANDS: Unremarkable. KIDNEYS AND URETERS: Tiny punctate intrarenal calculi are seen bilaterally left more so than right. There is no evidence for obstructive changes. No hydronephrosis or perinephric stranding. Ureters are normal in course and caliber with no ureteric calculi seen either. BLADDER: Partially decompressed but otherwise unremarkable GASTROINTESTINAL TRACT: Colon mostly decompressed. There is fatty attrition of the colonic wall suggesting sequela of prior chronic inflammatory process but this does not appear to be acute. There is no structure changes or pericolonic inflammatory change currently. ABDOMINAL WALL: Tiny fat-containing umbilical hernia. There is mild stranding to the fat within this tiny hernia as well as mild skin thickening to the overlying periumbilical skin surface. No abscess or discrete collection seen. No herniated bowel. LYMPHOVASCULAR STRUCTURES: Mild vascular calcification within the aorta iliac system. No adenopathy. PELVIC VISCERA: Unremarkable. OSSEUS STRUCTURES: Unremarkable. CT/CT abdomen pelvis wo con IMPRESSION: Tiny fat-containing umbilical hernia with a small amount of stranding seen to this herniated umbilical fat. There is also some mild periumbilical skin thickening more apparent compared to the prior study suggesting mild cellulitis or inflammatory process. No bowel herniation. Tiny intrarenal bilateral calculi but no obstructive changes.
[2021-01-16 17:19] VITALS: BP 191/122; PULSE 96; RESP 16; TEMP 37.1; O2SAT 97; BMI 32.5
--- NOTE | 2021-01-16 18:14 | ED_ITS ---
HPI - Abdominal Pain General Chief Complaint: Abdominal Pain Stated Complaint: abd pain ? hernia Time Seen by Provider: 01/16/21 18:10 Source: patient Mode of arrival: ambulatory Limitations: no limitations History of Present Illness HPI narrative: Patient history of umbilical hernia never seen or treated before complaining of increased pain in the umbilical area for last 2 days slightly nauseated vomited few times moving normal bowels feels hungry. No blood in the stool no abdominal distention Related Data Previous Rx's Medication Instructions Recorded erythromycin 5 mg/gram (0.5 %) eye 1 appl OPHTHALMIC (EYE) Q8H #3.5 g 03/16/20 ointment oxycodone 5 mg tablet 5 mg PO Q8H PRN #5 tab 03/16/20 tamsulosin 0.4 mg capsule (Flomax) 0.4 mg PO BEDTIME #10 cap 03/16/20 cephalexin 750 mg capsule (Keflex) 750 mg PO TID #20 cap 10/01/20 cephalexin 500 mg capsule 500 mg PO Q6H 7 Days #28 cap 10/05/20 hydrocodone 5 mg-acetaminophen 325 1 tab PO Q4-6H PRN #5 tab 10/05/20 mg tablet amoxicillin 875 mg-potassium 1 tab PO BID #20 tab 10/06/20 clavulanate 125 mg tablet (Augmentin) oxycodone-acetaminophen 5 mg-325 1 tab PO Q6H PRN #20 tab 10/06/20 mg tablet sulfamethoxazole 800 1 tab PO BID #20 tab 10/06/20 mg-trimethoprim 160 mg tablet (Bactrim DS) amoxicillin 875 mg-potassium 1 tab PO BID #20 tab 01/16/21 clavulanate 125 mg tablet (Augmentin) tramadol 50 mg tablet 50 mg PO Q6H PRN #20 tab 01/16/21 Allergies Allergy/AdvReac Type Severity Reaction Status Date / Time From YELLOW JACKET VENOM Allergy Severe ANAPHYLAXIS Uncoded 10/07/20 11:28 TREATMENT Review of Systems Review of Systems Yes all other systems are reviewed and are negative Physical Exam Vital Signs: Vital Signs: Last Vital Signs Temp 97.5 F 01/16/21 18:56 Pulse 89 01/16/21 18:56 Resp 18 01/16/21 18:56 BP 155/93 H 01/16/21 18:56 Pulse Ox 99 01/16/21 18:56 Body Mass Index 32.5 Appearance: Alert. Oriented X3. No acute distress. Eyes: No pallor or icterus ENT: Pharynx normal. Oral Mucosa moist Neck: Normal inspection. Neck supple. CVS: Normal heart rate and rhythm. Pulses normal. Respiratory: No respiratory distress. Equal air entry bilateral, no wheezi ng/rales/rhonchi Abdomen: Soft and tender umbilical area small fat containing hernia, Bowel sounds are present, no mass palpable, no CVA tenderness Skin: Skin warm and dry. Normal skin color. Normal skin turgor. Extremities: No lower extremity edema. No calf tenderness Neuro: Oriented X 3. MDM - Abdominal Pain MDM Narrative Medical decision making narrative: Patient's CT scan showed small umbilical hernia containing fat with slight inflammation discharge patient home on tramadol and Augmentin advised to follow with surgery Discharge Plan Discharge Clinical Impression: Umbilical hernia Qualifiers: Obstruction and gangrene presence: without obstruction or gangrene Qualified Code(s): K42.9 - Umbilical hernia without obstruction or gangrene Patient Disposition: Home, Self-Care Instructions: Umbilical Hernia (ED) Additional Instructions: Avoid lifting heavy weights Follow-up with surgeon for further management Report to the ER if increased pain/swelling/vomiting Take antibiotics as advised and pain medication Prescriptions: New tramadol 50 mg tablet 50 mg PO Q6H PRN (Reason: pain) Qty: 20 RF: 0 amoxicillin-pot clavulanate [Augmentin] 875-125 mg tablet 1 tab PO BID Qty: 20 RF: 0 No Action tamsulosin [Flomax] 0.4 mg capsule 0.4 mg PO BEDTIME Qty: 10 RF: 0 oxycodone 5 mg tablet 5 mg PO Q8H PRN (Reason: pain) Qty: 5 RF: 0 erythromycin 5 mg/gram (0.5 %) ointment 1 appl ophthalmic (eye) Q8H Qty: 3.5 RF: 0 cephalexin 500 mg capsule 500 mg PO Q6H 7 Days Qty: 28 RF: 0 hydrocodone-acetaminophen 5-325 mg tablet 1 tab PO Q4-6H PRN (Reason: pain) Qty: 5 RF: 0 cephalexin [Keflex] 750 mg capsule 750 mg PO TID Qty: 20 RF: 0 amoxicillin-pot clavulanate [Augmentin] 875-125 mg tablet 1 tab PO BID Qty: 20 RF: 0 sulfamethoxazole-trimethoprim [Bactrim DS] 800-160 mg tablet 1 tab PO BID Qty: 20 RF: 0 oxycodone-acetaminophen 5-325 mg tablet 1 tab PO Q6H PRN (Reason: pain) Qty: 20 RF: 0 Referrals: Dewayne Hassan MD [Physician] - 2 days Interventions: ED Discharge Assessment Last Done: 01/16/21 21:11 Discharge Date/Time: 01/16/21 21:11 [facility] Past Medical History Medical History Kidney stone Social History Social History Alcohol intake: never Patient Tobacco Use Status: Current everyday Tobacco user Tobacco use type: Cigarette Cigarette Packs Per Day: 1 Cigarettes Per Day: 20.0 Use of substances other than those prescribed or required for medical reasons: No Advance Directives: No Advance Directives Information Provided: No
[2021-01-16 18:56] VITALS: BP 155/93; PULSE 89; RESP 18; TEMP 36.4; O2SAT 99
== END 2021-01-16 21:11 | disposition home or self-care (01) ==
PROVIDERS: Emergency Provider Internal Medicine
DX: K42.9 Umbilical hernia without obstruction or gangrene (principal)
CPT/HCPCS: 74176; 99284

== ENCOUNTER → 2021-01-24 11:01 | Outpatient (BNVA) | payer OTHER, SELFPAY | PROVIDERS: Visit Provider Surgery | DX: K42.9 Umbilical hernia without obstruction or gangrene (principal); F17.200 Nicotine dependence, unspecified, uncomplicated; Z71.6 Tobacco abuse counseling | CPT/HCPCS: 99202 ==

== ENCOUNTER 2021-02-08 09:48 | Day surgery (SDC) | payer OTHER, SELFPAY ==
[2021-02-01 13:03] VITALS: BMI 33.7
--- NOTE | 2021-02-07 09:33 | P.CONAN_ITS ---
Documented by User: Joselyn Madison NP 02/07/21 09:34 HPI - Anesthesia Eval Consult details Narrative: 35yo M for Hernia Repair Umbilical with mesh s/p hand surgery 09/2020 with GA-LMA 5 PMFSH Active Problems Active Problems: All Active Problems (Updated 01/24/21 @ 11:36 by Candido Thornton MD) Laceration of hand with infection (Acute) Umbilical hernia (Acute) Past Medical History Medical History Kidney stone Smoker Family History Family History Paternal Grandmother Lung cancer Surgical History Surgical History History of cystoscopy History of incision and drainage History of lithotripsy Social History Social History Household Members Other:: Mother Are you a primary field care advocate to a significant other at home: No Do you presently have visiting nurse or other home services: No Alcohol intake: current Alcohol intake frequency: 3 or more drinks per day Patient Tobacco Use Status: Current everyday Tobacco user Tobacco use type: Cigarette Cigarette Packs Per Day: 1 Cigarettes Per Day: 20.0 Years Smoked: 15 Smoked in Last 30 Days: Yes Patient Interested in Nicotine Replacement: No Use of substances other than those prescribed or required for medical reasons: No Have you been hit, kicked, punched, or otherwise hurt by someone within the past year? If so, by whom?: No Are you DNR?: No Advance Directives: No Advance Directives Information Provided: No Advance Directives on File: No Recently lost weight without trying: No Eating poorly because of decreased appetite: No Nutrition Risks: No Nutritional Risk Meds Allergies Allergy/AdvReac Type Severity Reaction Status Date / Time From YELLOW JACKET VENOM Allergy Severe ANAPHYLAXIS Uncoded 01/24/21 11:09 TREATMENT Home Medications Medication Instructions Recorded Confirmed Last Taken Type No Known Home Meds 01/24/21 02/01/21 Unknown History Exam Exam Date and Time: February 07, 2021 0933 Height,Weight and Vital Signs: Height 6 ft Weight 112.945 kg Assessment and Plan Assessment Anesthesia Assessment: Chart Reviewed Documented by User: María Archer MD 02/08/21 11:21 [facility] Past Medical History Medical History Kidney stone Smoker Family History Family History Paternal Grandmother Lung cancer Family history of problems with anesthesia: No Surgical History Surgical History History of cystoscopy History of incision and drainage History of lithotripsy History of Problems with Anesthesia: Yes (Wakes up aggressive especially if restrained) Social History Social History Household Members Other:: Mother Are you a primary field care advocate to a significant other at home: No Do you presently have visiting nurse or other home services: No Alcohol intake: current Alcohol intake frequency: 3 or more drinks per day Patient Tobacco Use Status: Current everyday Tobacco user Tobacco use type: Cigarette Cigarette Packs Per Day: 1 Cigarettes Per Day: 20.0 Years Smoked: 15 Smoked in Last 30 Days: Yes Patient Interested in Nicotine Replacement: No Use of substances other than those prescribed or required for medical reasons: No Have you been hit, kicked, punched, or otherwise hurt by someone within the past year? If so, by whom?: No Are you DNR?: No Advance Directives: No Advance Directives Information Provided: No Advance Directives on File: No Recently lost weight without trying: No Eating poorly because of decreased appetite: No Nutrition Risks: No Nutritional Risk Meds Allergies Allergy/AdvReac Type Severity Reaction Status Date / Time From YELLOW JACKET VENOM Allergy Severe ANAPHYLAXIS Uncoded 01/24/21 11:09 TREATMENT Home Medications Medication Instructions Recorded Confirmed Last Taken Type No Known Home Meds 01/24/21 02/01/21 Unknown History Exam Height,Weight and Vital Signs: Height 6 ft Weight 112.945 kg Vital Signs Temp Pulse Resp BP Pulse Ox 02/08/21 10:28 98.4 F 89 16 157/100 H 96 Airway Mallampati Class: II TM Dist: >3cm Neck ROM: Full Heart: RRR Lungs: Occ wheeze Assessment and Plan Assessment Anesthesia Assessment: Anesthesia Plan Discussed Final Anesthetic Review Family History of Problems with Anesthesia: No History of Problems with Anesthesia: Yes (Wakes up aggressive especially if restrained) NPO: Yes ASA Class: II Final Preanesthetic Review: No Changes in Pt Med Stat, Meds/Allgs Chart Reviewed, Consent Obtained/Reviewed and Anes Risks/Benef Reviewed Patient Risk: Intermediate Procedure Risk: Low Assessment/Block/Sedation in SS: Assess/Block/Sedation-SS Anesthetic Plan Anesthetic Plan: GA Disposition: Standard PACU
[2021-02-08] VITALS (11 sets, daily range): BP systolic 128–157; BP diastolic 77–100; PULSE 84–102; RESP 14–19; TEMP 36.9–37.8; O2SAT 90–97
[2021-02-08] MEDS: Lactated Ringers 1,000 ML 100 ML IVCONT (10:42)
--- NOTE | 2021-02-08 11:00 | MHC.SHP ---
Pre-Procedural Eval Section A Date of Service: 02/08/21 The patient is an INPATIENT: No Changes since office visit: Yes Patient answered all questions; No Cold of Flu in the past 2 weeks, No New Medical Problems and No Changes in Medication The History & Physical has been completed within 30 days and I have reviewed it.: Yes Section B Chief Complaint: umbilical hernia without obstruction Allergies: Allergies Allergy/AdvReac Type Severity Reaction Status Date / Time From YELLOW JACKET VENOM Allergy Severe ANAPHYLAXIS Uncoded 01/24/21 11:09 TREATMENT Plan Diagnosis/Plan: Unchanged I have reviewed the history and physical and performed a pertinent physical examination on my patient. No changes have occurred unless specified.
--- NOTE | 2021-02-08 12:03 | P.OP_ITS ---
Operative Note Operative Note Date of Service: 02/08/21 Narrative: Preoperative diagnosis: Umbilical hernia Postoperative diagnosis: Same Procedure: Repair of umbilical hernia with mesh Surgeon: Candido Thornton MD Corporate Travel Counselor: Kristin Currie PA-C Anesthesia: General LMA Indications for procedure: 35-year-old male patient presenting with a painful umbilical hernia. Patient underwent workup with CT of the abdomen and pelvis which confirmed a small umbilical hernia. No other pathology could be identified. Operative findings: Small umbilical hernia measuring approximately 2 cm in diameter Specimen: None Estimated blood loss: 5 mL Complications: None Procedure details: Patient was brought to the OR and placed in a supine position. After administering general anesthesia the patient's abdomen was prepped with ChloraPrep and draped in a sterile fashion. A surgical time-out was called the consent confirmed. Patient received preoperative antibiotics and Venodyne boots were in place. Local anesthesia consisting of 0.5% Sensorcaine was infiltrated around the umbilicus. A curvilinear incision was made along the top edge of the umbilicus in a transverse fashion. Incision was carried out through subcutaneous tissue up to the hernia sac. Hernia sac was then dissected circumferentially down to the fascial edge. The hernia sac was then reduced into the abdominal cavity. A preperitoneal space was then created using electrocautery. A small circular Ventralex mesh measuring 4.6 cm was then obtained. This was placed into the preperitoneal space and secured to the fascia using 1. Tycron sutures. Fascia was then closed over the mesh using 1 Tycron sutures. This was done in a figure-eight fashion. Wounds were then irrigated with saline solution and suctioned dry. Umbilical skin was then reattached to the fascia using a 3-0 Polysorb suture. Dermis was reapproximated using interrupted 3-0 Polysorb sutures. Skin was closed using a running subcuticular 4-0 Polysorb suture. Sterile dressings consisting of 2 x 2 gauze and Tegaderm were then applied. The patient tolerated the procedure well. Sponge, instrument, and needle counts reported as correct. The patient was transferred to PACU in stable condition.
[2021-02-08] MEDS: ondansetron HCL 4 MG/2 ML VIAL IVPUSH (12:29)
[2021-02-08] MEDS: oxyCODONE HCl Immed Release 5 MG TABLET 10 MG PO (12:30)
[2021-02-08] MEDS: Acetaminophen 325 MG TABLET 650 MG PO (12:31)
[2021-02-08] MEDS: Ketorolac Tromethamine 15 MG/ML VIAL IVPUSH (12:34)
[2021-02-08] MEDS: fentaNYL citrate/PF 100 MCG/2 ML VIAL 25 MCG IVPUSH ×4 (12:46→13:20)
== END 2021-02-08 14:00 | disposition home or self-care (01) ==
PROVIDERS: Visit Provider Surgery
PROC: (CPT 49585; principal; 2021-02-08 11:30)
DX: K42.9 Umbilical hernia without obstruction or gangrene (principal); Z87.442 Personal history of urinary calculi; F17.210 Nicotine dependence, cigarettes, uncomplicated
CPT/HCPCS: 49585; C1781; J0690; J1100; J1885; J2250; J2405; J3010

== ENCOUNTER → 2021-02-14 15:05 | Outpatient (BNVA) | payer OTHER, SELFPAY | PROVIDERS: Visit Provider Surgery | DX: Z48.815 Encounter for surgical aftercare following surgery on the digestive system (principal); Z87.19 Personal history of other diseases of the digestive system | CPT/HCPCS: 99212 ==

== ENCOUNTER → 2021-02-20 12:50 | Outpatient (BNVA) | payer OTHER, SELFPAY | PROVIDERS: Visit Provider Surgery | DX: Z48.815 Encounter for surgical aftercare following surgery on the digestive system (principal); S30.1XXA Contusion of abdominal wall, initial encounter | CPT/HCPCS: 10140; 99212 ==

== ENCOUNTER 2021-02-20 14:10 | Outpatient (REF) | payer OTHER, SELFPAY | END 2021-02-20 14:11 | disposition home or self-care (01) | LOC: HO.LNP 14:10 | PROVIDERS: Visit Provider Surgery | DX: T14.8XXA Other injury of unspecified body region, initial encounter (principal) | CPT/HCPCS: 87071; 87205 ==

== ENCOUNTER → 2021-02-28 15:15 | Outpatient (BNVA) | payer OTHER, SELFPAY | PROVIDERS: Visit Provider Surgery | DX: Z09 Encounter for follow-up examination after completed treatment for conditions other than malignant neoplasm (principal); Z87.19 Personal history of other diseases of the digestive system | CPT/HCPCS: 99212 ==

== ENCOUNTER 2021-05-25 11:09 | Outpatient (REF) | payer OTHER, SELFPAY ==
[2021-05-25 13:42] LABS: MANUAL DIFF FLAG NO
[2021-05-25 13:45] LABS: Basophils Absolute Auto 0.1 X10*3/uL (0.0-0.2); Basophils Percent Auto 0.9 % (0-2); Eosinophils Absolute Auto 0.2 X10*3/uL (0.0-0.4); Eosinophils Percent Auto 2.2 % (0-4); Hematocrit 43.9 % (42.0-52.0); Hemoglobin 15.1 g/dl (14.0-18.0); Imm Gran Abs Auto 0.09 X10*3/uL (0.00-0.03); Imm Gran Pct Auto 1.2 % (0.0-0.4); Lymphocytes Absolute Auto 2.4 X10*3/uL (1.2-4.9); Lymphocytes Percent Auto 31.7 % (20-40); Mean Corpuscular HGB Conc 34.4 g/dl (31.0-36.0); Mean Corpuscular Hemoglobin 32.7 pg (27.0-33.0); Mean Platelet Volume 11.6 fL (9.4-12.4); Monocytes Absolute Auto 0.8 X10*3/uL (0.1-1.2); Monocytes Percent Auto 10.6 % (2-11); Neutrophils Percent Auto 53.4 % (45-73); Platelet Count 198 X10*3/uL (160-400); Red Blood Count 4.62 X10*6/uL (4.60-5.80); Red Cell Distribution Width 11.9 % (11.0-16.0); White Blood Count 7.6 X10*3/uL (4.8-10.8)
[2021-05-25 14:04] LABS: Alanine Aminotransferase 92 U/L (0-40); Albumin Level 3.8 g/dL (3.5-5.0); Alkaline Phosphatase 135 U/L (39-117); Anion Gap 13 (12-20); Aspartate Amino Transferase 111 U/L (5-37); Bilirubin Total 0.8 mg/dL (0.0-1.0); Blood Urea Nitrogen 15 mg/dL (9-16); Calcium 9.2 mg/dL (8.4-10.2); Carbon Dioxide 27 mmol/L (22-29); Chloride 101 mmol/L (96-108); Cholesterol 302 mg/dL; Estimated Glomerular Filt Rate > 60; Glucose Fasting 105 mg/dL (60-99); Potassium 4.7 mmol/L (3.3-5.1); Sodium 136 mmol/L (135-145); Total Protein 8.1 g/dL (6.5-8.0)
[2021-05-25 14:21] LABS: Thyroid Stimulating Hormone 1.45 uIU/mL (0.32-4.0)
== END 2021-05-25 11:10 | disposition home or self-care (01) ==
LOC: HO.10HDL 11:09
PROVIDERS: Visit Provider Internal Medicine
DX: I10 Essential (primary) hypertension (principal); R63.4 Abnormal weight loss
CPT/HCPCS: 36415; 80053; 82465; 84443; 85025

== ENCOUNTER 2021-12-22 00:43 | Emergency (ER) | payer OTHER, SELFPAY ==
--- NOTE | ~2021-12-22 | XR_ITS ---
EXAMINATION: XR HAND, LEFT XR FOREARM, LEFT CLINICAL INFORMATION: Pain COMPARISON: None TECHNIQUE: PA, oblique and lateral views of the left hand PA, oblique and lateral views of the left forearm XR/XR forearm LT 2V FINDINGS/IMPRESSION: There is dorsal dislocation of the fifth metacarpal base with respect to the hamate. There is also dorsal subluxation of the fourth metacarpal base with respect to the hamate. No fractures. Soft tissue swelling dorsal and lateral to the fifth metacarpal.
--- NOTE | ~2021-12-22 | XR_ITS ---
EXAMINATION: XR HAND, LEFT XR FOREARM, LEFT CLINICAL INFORMATION: Pain COMPARISON: None TECHNIQUE: PA, oblique and lateral views of the left hand PA, oblique and lateral views of the left forearm XR/XR hand wrist LT FINDINGS/IMPRESSION: There is dorsal dislocation of the fifth metacarpal base with respect to the hamate. There is also dorsal subluxation of the fourth metacarpal base with respect to the hamate. No fractures. Soft tissue swelling dorsal and lateral to the fifth metacarpal.
--- NOTE | ~2021-12-22 | XR_ITS ---
EXAMINATION: XR HAND, LEFT CLINICAL INFORMATION: Post reduction COMPARISON: Earlier same date TECHNIQUE: PA, lateral, and oblique views of the left hand. XR/XR hand LT 2V FINDINGS/IMPRESSION: Successful reduction of the previous is seen fifth metacarpal dislocation fourth metacarpal subluxation at the carpometacarpal joint. There are couple tiny avulsion fractures associated with the fifth metacarpal base.
--- NOTE | 2021-12-22 01:00 | ED.UPPEXIN ---
HPI - Extremity Injury (Upper) General Chief Complaint: Extremity Injury, Upper Stated Complaint: left arm broken? Time Seen by Provider: 12/22/21 00:54 Source: patient Mode of arrival: ambulatory Limitations: no limitations History of Present Illness HPI narrative: Extremity patient comes to the emergency room complaining of, hand pain after sustaining a fall. Patient states that he was walking his dog 2 hours prior to arrival, the leash wrapped around his legs, patient fell and landed on his left wrist. Patient did not his his head, did not lose consciousness, patient is not on blood thinners. Patient complaining of severe localized pain in the left wrist and left hand. Related Data Previous Rx's Medication Instructions Recorded cephalexin 500 mg capsule 500 mg PO Q8H 10 days #30 caps 02/28/21 oxycodone-acetaminophen 5 mg-325 2 tab PO Q8H PRN pain (scale score 02/28/21 mg tablet (Endocet) 7-10) #15 tabs Allergies Allergy/AdvReac Type Severity Reaction Status Date / Time From YELLOW JACKET VENOM Allergy Severe ANAPHYLAXIS Uncoded 01/24/21 11:09 TREATMENT Review of Systems Review of Systems: Constitutional : No Weight loss, No Fever, No Chills, No Night Sweats, No Fatigue, No Malaise ENT/Mouth : No Hearing loss, No Ear Pain, No Nasal Congestion, No Sinus Pain, No Hoarseness, No sore throat, No Rhinorrhea, No Swallowing Difficulty Eyes: No Eye Pain, No Swelling, No Redness, No Foreign Body, No Discharge, No Vision Changes Cardiovascular : No Chest Pain, No SOB, No Dyspnea on Exertion, No Orthopnea, No Edema, No Palpitations Respiratory : No Cough, No Sputum, No Wheezing, No Smoke Exposure, No Dyspnea Gastrointestinal : No Nausea, No Vomiting, No Diarrhea, No Constipation, No abdominal Pain, No Hematochezia, No Melena Genitourinary : no irregular bleeding, No Dysuria, No Urinary Frequency, No Hematuria, No Urinary Incontinence, No Urgency, No Flank Pain, No Urinary Flow Changes, No Hesitancy Musculoskeletal : Complaining of left wrist pain, No Myalgias, No Joint Swelling Skin : No Skin Lesions, No rash Neuro : No Weakness, No Numbness, No Paresthesias, No Loss of Consciousness, No Dizziness, No Headache Psych : No Anxiety/Panic, No Depression, No SI/HI/AH/VH, No Social Issues, Heme/Lymph: No Bruising, No Bleeding,No Lymphadenopathy Endocrine : No Polyuria, No Polydipsia, No Temperature Intolerance [facility] Past Medical History Medical History Kidney stone Smoker Surgical History History of cystoscopy History of incision and drainage History of lithotripsy Family History Family History Paternal Grandmother Lung cancer Social History Social History Household Members Other:: Mother Are you a primary career and transition teacher to a significant other at home: No Do you presently have visiting nurse or other home services: No Alcohol intake: current Alcohol intake frequency: 3 or more drinks per day Patient Tobacco Use Status: Current everyday Tobacco user Tobacco use type: Cigarette Cigarette Packs Per Day: 1 Cigarettes Per Day: 20.0 Years Smoked: 15 Advance Directives: No Advance Directives Information Provided: No Physical Exam Vital Signs: Vital Signs: Last Vital Signs Temp 97.9 F 12/22/21 01:12 Pulse 110 H 12/22/21 01:12 Resp 18 12/22/21 01:12 BP 128/88 12/22/21 01:12 Pulse Ox 96 12/22/21 01:12 O2 Del Method 12/22/21 01:12 BMI result Body Mass Index 32.5 Const: Other: Appearance: Alert. Oriented X3. No acute distress. Eyes: Pupils equal, round and reactive to light. ENT: Pharynx normal. Neck: Normal inspection. Neck supple. No lymph nodes noted. No crepitus CVS: Normal heart rate and rhythm. Pulses normal. Normal S1 and S2 Respiratory: No respiratory distress. Breath sounds normal. No Wheezing. No rales Abdomen: Soft and nontender. No rigidity. No distention. Skin: Skin warm and dry. Normal skin color. Normal skin turgor. Extremities: left hand look swollen, there is severe pain to palpation over the 3rd 4th and 5th metacarpals, patient unable to flex and extend the wrist due to pain Neuro: Oriented X 3. No motor deficit. No sensory deficit. Moving all extremities. No slurred speech. CN 2 through 12 grossly intact Psych: calm, cooperative, normal affect Course Course Course Narrative: x-rays are pending. Patient was given 1 dose of IM morphine 4 mg sign-out given to Dr. Shea Discharge Plan Discharge Clinical Impression: Hand pain, Sprain and strain of wrist Patient Disposition: Still a Patient Prescriptions: No Action oxycodone-acetaminophen [Endocet] 5-325 mg tablet 2 tab PO Q8H PRN (Reason: pain (scale score 7-10)) Qty: 15 0RF cephalexin 500 mg capsule 500 mg PO Q8H 10 Days Qty: 30 0RF
[2021-12-22 01:12] VITALS: BP 128/88; PULSE 110; RESP 18; TEMP 36.6; O2SAT 96; BMI 32.5
[2021-12-22] MEDS: Morphine Sulfate 4 MG/ML CARTRIDGE IM (01:14)
[2021-12-22] MEDS: Lidocaine HCl 2 % MPF 5 ML VIAL INFILTRATI (02:10)
[2021-12-22] MEDS: oxyCODONE HCl Immed Release 5 MG TABLET 10 MG PO (02:57)
--- NOTE | 2021-12-22 03:37 | ED.EXTPRO ---
HPI - Extremity Problem General Chief complaint: Extremity Injury, Upper Stated complaint: left arm broken? Time Seen by Provider: 12/22/21 00:54 Related Data Previous Rx's Medication Instructions Recorded cephalexin 500 mg capsule 500 mg PO Q8H 10 days #30 caps 02/28/21 oxycodone-acetaminophen 5 mg-325 2 tab PO Q8H PRN pain (scale score 02/28/21 mg tablet (Endocet) 7-10) #15 tabs oxycodone 5 mg tablet 5 mg PO Q6H PRN Pain (Scale Score 12/22/21 4-6) #30 tabs Allergies Allergy/AdvReac Type Severity Reaction Status Date / Time From YELLOW JACKET VENOM Allergy Severe ANAPHYLAXIS Uncoded 01/24/21 11:09 TREATMENT PMFSH Past Medical History Medical History Kidney stone Smoker Surgical History History of cystoscopy History of incision and drainage History of lithotripsy Family History Family History Paternal Grandmother Lung cancer Social History Social History Household Members Other:: Mother Are you a primary assisted living care manager to a significant other at home: No Do you presently have visiting nurse or other home services: No Alcohol intake: current Alcohol intake frequency: 3 or more drinks per day Patient Tobacco Use Status: Current everyday Tobacco user Tobacco use type: Cigarette Cigarette Packs Per Day: 1 Cigarettes Per Day: 20.0 Years Smoked: 15 Advance Directives: No Advance Directives Information Provided: No Physical Exam Vital Signs: Vital Signs: Last Vital Signs Temp 97.9 F 12/22/21 01:12 Pulse 110 H 12/22/21 01:12 Resp 18 12/22/21 01:12 BP 128/88 12/22/21 01:12 Pulse Ox 96 12/22/21 01:12 O2 Del Method 12/22/21 01:12 BMI result Body Mass Index 32.5 MDM - Extremity (Nontraumatic) MDM Narrative Medical decision making narrative: Closed reduction of left metacarpal carpal dislocation using hematoma block with successful reduction patient felt better neurovascular intact Imaging Data L hand xray: Radiologist's impression: XR/XR hand wrist LT FINDINGS/IMPRESSION: There is dorsal dislocation of the fifth metacarpal base with respect to the hamate. There is also dorsal subluxation of the fourth metacarpal base with respect to the hamate. No fractures. Soft tissue swelling dorsal and lateral to the fifth metacarpal Procedures Orthopedic Fracture Reduction Fracture #1: Fracture Reduction Location: metacarpal (L hand) Analgesia: hematoma block Technique: direct manipulation and traction/counter-traction Post Reduction X-rays Demonstrate: anatomical reduction Post-reduction neuro exam: intact Post-reduction vascular exam: intact Splint Applied: Yes Patient Tolerated Procedure: well Discharge Plan Discharge Clinical Impression: Dislocation of metacarpal (bone), proximal end of left hand, initial encounter Patient Disposition: Home, Self-Care Instructions: Closed Reduction Internal Fixation of Upper Extremity Fracture... (DC) Additional Instructions: You had dislocation of left 4th and 5th finger which was fixed he may continue to have pain swelling that area Wear the splint keep the left and elevated until you get better for approximately 2 weeks Follow-up with orthopedics in 1 week Prescriptions: New oxycodone 5 mg tablet 5 mg PO Q6H PRN (Reason: Pain (Scale Score 4-6)) Qty: 30 0RF Rx Instructions: Partial Fill upon patient request. No Action oxycodone-acetaminophen [Endocet] 5-325 mg tablet 2 tab PO Q8H PRN (Reason: pain (scale score 7-10)) Qty: 15 0RF cephalexin 500 mg capsule 500 mg PO Q8H 10 Days Qty: 30 0RF Referrals: Darryl Rodrigez MD [Physician] - 1 week
== END 2021-12-22 03:51 | disposition home or self-care (01) ==
PROVIDERS: Emergency Provider Internal Medicine; PCP Internal Medicine
DX: S62.92XA Unspecified fracture of left hand, initial encounter for closed fracture (principal); M79.602 Pain in left arm; M79.642 Pain in left hand; X58.XXXA Exposure to other specified factors, initial encounter; Y93.9 Activity, unspecified; Y92.9 Unspecified place or not applicable; Y99.9 Unspecified external cause status; F17.210 Nicotine dependence, cigarettes, uncomplicated; Z71.6 Tobacco abuse counseling; Z79.899 Other long term (current) drug therapy
CPT/HCPCS: 26605; 73090; 73110; 73120; 73130; 96372; 99283; 99284; J2270

== ENCOUNTER 2021-12-25 13:22 | Outpatient (REF) | payer OTHER, SELFPAY ==
--- NOTE | ~2021-12-25 | XR_ITS ---
EXAMINATION: XR HAND, LEFT CLINICAL INFORMATION: Pain in the left hand. COMPARISON: Radiograph of the left hand dated from 12/22/2021. TECHNIQUE: PA, lateral, and oblique views of the left hand. FINDINGS: Overlying casting limits evaluation of fine osseous details along the ulnar surface of the hand. No evidence of acute fractures or malalignment. No unexpected radiopaque foreign bodies. XR/XR hand LT min 3V IMPRESSION: No acute fractures or malalignment.
== END 2021-12-25 13:23 | disposition home or self-care (01) ==
LOC: HO.HOSX 13:22
PROVIDERS: Visit Provider Orthopaedic Surgery
DX: S63.055A Dislocation of other carpometacarpal joint of left hand, initial encounter (principal); S62.143A Displaced fracture of body of hamate [unciform] bone, unspecified wrist, initial encounter for closed fracture
CPT/HCPCS: 73130; 99202

== ENCOUNTER 2021-12-26 13:17 | Outpatient (REF) | payer OTHER, SELFPAY ==
--- NOTE | ~2021-12-26 | XR_ITS ---
EXAMINATION: XR HAND, LEFT CLINICAL INFORMATION: Left hand pain COMPARISON: None TECHNIQUE: PA, lateral, and oblique views of the left hand. FINDINGS: The bones and soft tissues are normal. No fracture. Alignment is anatomic. Joint spaces are maintained. No erosions or soft tissue calcifications. XR/XR hand LT min 3V IMPRESSION: Unremarkable left hand.
== END 2021-12-26 13:18 | disposition home or self-care (01) ==
LOC: HO.HOSX 13:17
PROVIDERS: Visit Provider Orthopaedic Surgery
DX: S62.142A Displaced fracture of body of hamate [unciform] bone, left wrist, initial encounter for closed fracture (principal); S63.055A Dislocation of other carpometacarpal joint of left hand, initial encounter
CPT/HCPCS: 73130; 99212

== ENCOUNTER 2022-01-02 08:30 | Outpatient (REF) | payer OTHER, SELFPAY ==
--- NOTE | ~2022-01-02 | XR_ITS ---
EXAMINATION: XR HAND, LEFT CLINICAL INFORMATION: Pain. COMPARISON: None TECHNIQUE: PA, lateral, and oblique views of the left hand. FINDINGS: The bones and soft tissues are normal. No fracture. Alignment is anatomic. Joint spaces are maintained. No erosions or soft tissue calcifications. XR/XR hand LT min 3V IMPRESSION: Unremarkable left hand.
== END 2022-01-02 08:31 | disposition home or self-care (01) ==
LOC: HO.HOSX 08:30
PROVIDERS: Visit Provider Orthopaedic Surgery
DX: M79.642 Pain in left hand (principal)
CPT/HCPCS: 73130

== ENCOUNTER 2022-01-29 10:46 | Outpatient (REF) | payer OTHER, SELFPAY | END 2022-01-29 10:47 | disposition home or self-care (01) | LOC: HO.HOSX 10:46 | PROVIDERS: Visit Provider Orthopaedic Surgery | DX: Z13.89 Encounter for screening for other disorder (principal) ==

== ENCOUNTER 2023-04-21 15:42 | Emergency (ER) | payer OTHER, SELFPAY ==
--- NOTE | ~2023-04-21 | XR_ITS ---
EXAMINATION: XR WRIST, LEFT CLINICAL INFORMATION: Pain status-post fall; question fracture. COMPARISON: Prior radiographs, most recently 01/02/2022. TECHNIQUE: PA, lateral, and oblique views of the left wrist, together with a dedicated navicular view. FINDINGS: Bony alignment and mineralization are normal. There is a slight ulnar positive variance. On the lateral view, a comminuted triquetral fracture is suspected. The proximal and distal carpal rows are intact. There is no abnormal bone erosion. There is mild dorsal soft tissue swelling. No soft tissue gas or foreign body is seen. XR/XR wrist LT min 3V IMPRESSION: A comminuted left triquetral fracture is suspected on the lateral view.
[2023-04-21 15:55] VITALS: BP 184/96; PULSE 99; RESP 18; TEMP 36.6; O2SAT 95; BMI 32.1
--- NOTE | 2023-04-21 17:14 | ED_ITS ---
HPI - Extremity Problem General Chief complaint: Extremity Injury, Upper Stated complaint: left wrist broken? History of Present Illness HPI Narrative: LEft before completion of treatment by ED provider. Related Data Previous Rx's Medication Instructions Recorded oxycodone 5 mg tablet 5 mg PO Q6H PRN Pain (Scale Score 12/22/21 4-6) #30 tabs ibuprofen 600 mg tablet 600 mg PO TID PRN pain #40 tab-caps 12/25/21 oxycodone-acetaminophen 5 mg-325 1 tab PO Q8H PRN pain #10 tabs 12/25/21 mg tablet (Percocet) Allergies Allergy/AdvReac Type Severity Reaction Status Date / Time From YELLOW JACKET VENOM Allergy Severe ANAPHYLAXIS Uncoded 04/21/23 15:58 TREATMENT PMFSH Past Medical History Medical History Kidney stone Smoker Surgical History History of cystoscopy History of incision and drainage History of lithotripsy Family History Family History Paternal Grandmother Lung cancer Social History Social History Household Members Other:: Mother Are you a primary home care companion to a significant other at home: No Do you presently have visiting nurse or other home services: No Alcohol intake: current Alcohol intake frequency: 3 or more drinks per day Patient Tobacco Use Status: Current everyday Tobacco user Tobacco use type: Cigarette Cigarette Packs Per Day: 1 Cigarettes Per Day: 20.0 Years Smoked: 15 Advance Directives: No Advance Directives Information Provided: No 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 Fell unto wrist. Patient came to ED today for evaluation. Patient states no headache, nausea, vomitting, or any other complaints . Xray ordered Reevaluation(s) Reevaluation #1: Patient left before x-ray results came back. X-ray results shows wrists fracture. Phone number on chart was called and is not in service. Patient can not be reached. Time: 20:28 Discharge Plan Discharge Clinical Impression: Fracture of wrist Patient Disposition: Left W/O Completing Treatment Prescriptions: No Action oxycodone 5 mg tablet 5 mg PO Q6H PRN (Reason: Pain (Scale Score 4-6)) Qty: 30 0RF Rx Instructions: Partial Fill upon patient request. ibuprofen 600 mg tablet 600 mg PO TID PRN (Reason: pain) Qty: 40 0RF oxycodone-acetaminophen [Percocet] 5-325 mg tablet 1 tab PO Q8H PRN (Reason: pain) Qty: 10 0RF Rx Instructions: Partial Fill upon patient request. Interventions: LWBS Worksheet Last Done: 04/21/23 18:22 Discharge Date/Time: 04/21/23 18:23
--- NOTE | 2023-04-21 18:26 | PC.NURSE ---
called the pt to come back to get see, but the number on file is not in service at this time
== END 2023-04-21 18:23 | disposition left against medical advice (07) ==
PROVIDERS: Emergency Provider Emergency Medicine; PCP Internal Medicine
DX: S62.102A Fracture of unspecified carpal bone, left wrist, initial encounter for closed fracture (principal); W01.0XXA Fall on same level from slipping, tripping and stumbling without subsequent striking against object, initial encounter; Y93.51 Activity, roller skating (inline) and skateboarding; Y92.410 Unspecified street and highway as the place of occurrence of the external cause; Y99.8 Other external cause status
CPT/HCPCS: 73110; 99281; 99283

== ENCOUNTER 2023-04-26 09:14 | Emergency (ER) | payer OTHER, SELFPAY ==
--- NOTE | ~2023-04-26 | XR_ITS ---
EXAMINATION: XR WRIST, LEFT XR HAND, LEFT CLINICAL INFORMATION: Known triquetral fracture. New fall. COMPARISON: 04/21/2023 and 01/02/2022 TECHNIQUE: PA, lateral, and oblique views of the left wrist and PA, lateral, and oblique views of the left hand FINDINGS: LEFT WRIST: Slight ulnar positive variance. On the lateral view, a triquetral fracture is redemonstrated. The degree of comminution is less apparent. The proximal and distal carpal rows are intact. Improvement in dorsal soft tissue swelling. LEFT HAND: Alignment is anatomic. Joint spaces are maintained. No displaced fracture. No erosions or soft tissue calcifications. XR/XR hand wrist LT IMPRESSION: Redemonstration of triquetral fracture. No new abnormality.
[2023-04-26 09:20] VITALS: BP 148/87; PULSE 117; RESP 16; TEMP 36.6; O2SAT 98; BMI 35.3
[2023-04-26] MEDS: Ibuprofen 800 MG TABLET PO (10:08)
--- NOTE | 2023-04-26 10:40 | ED.EXTPRO ---
HPI - Extremity Problem General Chief complaint: Extremity Injury, Upper Stated complaint: L broken wrist? Time Seen by Provider: 04/26/23 09:26 Source: patient Mode of arrival: ambulatory Limitations: no limitations History of Present Illness HPI Narrative: 38-year-old male history of previous upper extremity fractures, an abscess since presents to the ED for left wrist pain. Patient states last week he fell and fractured his wrist but left before splint was placed and just use Rene wrap. Patient then states 3 days ago he fell again and now pain is worse. Patient came to the ED to see fractures worse. Patient denies any other complaints. Related Data Previous Rx's Medication Instructions Recorded oxycodone 5 mg tablet 5 mg PO Q6H PRN Pain (Scale Score 12/22/21 4-6) #30 tabs ibuprofen 600 mg tablet 600 mg PO TID PRN pain #40 tab-caps 12/25/21 oxycodone-acetaminophen 5 mg-325 1 tab PO Q8H PRN pain #10 tabs 12/25/21 mg tablet (Percocet) cephalexin 500 mg capsule 500 mg PO Q12H 7 days #14 caps 04/26/23 doxycycline hyclate 100 mg capsule 100 mg PO BID 7 days #14 caps 04/26/23 naproxen 500 mg tablet 500 mg PO BID PRN pain 7 days #14 04/26/23 tabs oxycodone 5 mg capsule 5 mg PO TID PRN pain 3 days #9 caps 04/26/23 Allergies Allergy/AdvReac Type Severity Reaction Status Date / Time From [facility] Allergy Severe ANAPHYLAXIS Uncoded 04/21/23 15:58 TREATMENT Review of Systems Review of Systems: Left wrist pain. Yes all other systems are reviewed and are negative PMFSH Past Medical History Medical History Kidney stone Smoker Surgical History History of cystoscopy History of incision and drainage History of lithotripsy Family History Family History Paternal Grandmother Lung cancer Social History Social History Household Members Other:: Mother Are you a primary personal care service provider to a significant other at home: No Do you presently have visiting nurse or other home services: No Alcohol intake: current Alcohol intake frequency: 3 or more drinks per day Patient Tobacco Use Status: Current everyday Tobacco user Tobacco use type: Cigarette Cigarette Packs Per Day: 1 Cigarettes Per Day: 20.0 Years Smoked: 15 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 Physical Exam Vital Signs: Vital Signs: Last Vital Signs Temp 97.8 F 04/26/23 12:22 Pulse 93 04/26/23 12:22 Resp 16 04/26/23 12:22 BP 127/72 04/26/23 12:22 Pulse Ox 95 04/26/23 12:22 O2 Del Method Room Air 04/26/23 12:22 BMI result Body Mass Index 35.3 Const: General: cooperative, healthy appearing, comfortable, no acute distress, well developed, alert, awake and Physically active Orientation/consciousness: oriented to person, oriented to place, oriented to time and patient oriented x3 HEENT: Head: Yes normal to inspection, Yes No palpable skull fracture present, Yes normocephalic and Yes atraumatic Eyes: General: appearance normal, both eyes and all related structures Neck: Neck: Yes normal visual inspection, Yes full ROM, Yes no lymphadenopathy, Yes no meningeal signs, Yes trachea midline, Yes supple, No anterior neck swelling and No tender Chest: Chest palpation & inspection: normal inspection of the chest and normal palpation of entire chest wall Resp: Effort & Inspection: normal respiratory effort and able to speak in complete sentences Auscultation: clear to auscultation bilaterally Cardio: Jugular venous distension: no JVD Heart sounds: S1 normal heart sound present and S2 normal heart sound present GI: Inspection: Yes normal to inspection and No abdominal wall ecchymosis Palpation (GI): Soft to palpation, not firm, nontender, no guarding and not rigid Abdomen image: 1. Small opening with brown discharge. Negative for surrounding erythema, fluctuance, or tenderness on palpation. 2. Nonfluctuant erythematous mass. Negative for drainage. Positive for tenderness on palpation. Negative for foul odor. 3. Nonfluctuant erythematous mass. Negative for drainage. Positive for tenderness on palpation. Negative for foul odor. : General: Yes no CVA tenderness Back/Spine/Pelvis: Back: no CVA tenderness and No back tenderness Skin: General skin exam: no rashes or lesions noted, elasticity normal and turgor normal Neuro: General: oriented to person, oriented to place, oriented to time, patient oriented x3, gait normal, tone normal, moves all extremities, Normal light touch and pain sensation, no meningeal signs, no focal motor deficits, CN's II-XI intact bilaterally and normal sensation to monofilament Extrem: General: Yes normal to inspection and Yes full ROM Hand/finger images: 1. Positive for tenderness on palpation. Negative for crepitus or obvious deformity. Motor vascular exam intact. Neuro exam limited due to pain. Psych: Appearance: grossly normal, well kempt and not disheveled Medications Administered Discontinued Medications Generic Name Dose Route Start Last Admin Trade Name Damianq PRN Reason Stop Dose Admin Ibuprofen 800 mg 04/26/23 09:28 04/26/23 10:08 Ibuprofen 800 Mg Tablet PO 04/26/23 09:29 800 mg ONCE ONE Administration Oxycodone HCl 5 mg 04/26/23 10:47 04/26/23 11:05 Oxycodone Hcl Immed Release 5 Mg Tablet PO 04/26/23 10:48 5 mg ONCE ONE Administration Medical Decision Making Medical Decision Making MDM Narrative: 38-year-old male history of known fractures and left upper extremity presents to ED for left hand pain with known triquetral tractor as of last week fell again 2 days ago on same hand did not stay for splint. Patient return to the ED to see if fracture is worse. X-ray ordered most likely patient will need splint. 11:40: Patient placed in volar splint for fracture. Patient's secondary complaint was evaluation of small areas of redness with tender lumps on right thigh and right suprapubic groin area. Physical exam positive for small nonfluctuant abscesses and hidradenitis. Patient informed to follow-up with surgeon. Patient explained worrisome sign. Patient informed also follow-up with orthopedic surgeon. 12:00PM: Abdomen re-evaluated and patient has small opening in lower abdomen that is draining brown collection without tenderness. patient states having this for the past 6 months. Patient was informed this may be abdominal fistula and will need abdominal CT scan with labs. Patient refused and states he will follow-up with general surgeon. Patient explained worrisome signs and informed to return to the ED if he has them. Differential Diagnosis Differential Diagnoses: The differential diagnosis associated with the presentation includes ( Fracture.) Independent Interpretation I performed an independent interpretation of an: Plain X-Ray and CT Scan Radiology Impression Discussion of test interpretation with radiology: I have reviewed the radiologist's reading. External Record Review External record reviewed: Other ( Prior visits) Discharge Plan Discharge Clinical Impression: Fracture of triquetral bone of left wrist, Abscess, Hidradenitis suppurativa Patient Disposition: Home, Self-Care Instructions: Wrist Fracture in Adults (ED), Abscess (ED), Hidradenitis Suppurativa (ED) Additional Instructions: you will need follow-up with orthopedic surgeon For wrist fracture. You also need follow-up with general surgeon for management of abscesses hidradenitis. Presently no indication for incision and drainage. return to the ED immediately for any abdominal pain, nausea, vomiting, fever, chills, bluish black discoloration of extremity, bluish black discoloration of fingers, redness, chest pain, shortness of breath, numbness/tingling, worsening pain of abscesses, increased size of abscess, increased drainage, or any other concerning symptoms. Prescriptions: New cephalexin 500 mg capsule 500 mg PO Q12H 7 Days Qty: 14 0RF doxycycline hyclate 100 mg capsule 100 mg PO BID 7 Days Qty: 14 0RF naproxen 500 mg tablet 500 mg PO BID PRN (Reason: pain) 7 Days Qty: 14 0RF oxycodone 5 mg capsule 5 mg PO TID PRN (Reason: pain) 3 Days Qty: 9 0RF Rx Instructions: Partial Fill upon patient request. No Action oxycodone 5 mg tablet 5 mg PO Q6H PRN (Reason: Pain (Scale Score 4-6)) Qty: 30 0RF Rx Instructions: Partial Fill upon patient request. ibuprofen 600 mg tablet 600 mg PO TID PRN (Reason: pain) Qty: 40 0RF oxycodone-acetaminophen [Percocet] 5-325 mg tablet 1 tab PO Q8H PRN (Reason: pain) Qty: 10 0RF Rx Instructions: Partial Fill upon patient request. Referrals: [facility] [place] [[place] Group] ( recurrent abscesses hidradenitis suppurativa. Abdominal Fistula) [facility] [place] [facility] [facility] [Provider Group] ( Left wrist fracture) Stand Alone Forms: Work/School Release Interventions: ED Discharge Assessment Last Done: 04/26/23 12:20 Discharge Date/Time: 04/26/23 12:26 Print Language: Tanzanian
[2023-04-26] MEDS: oxyCODONE HCl Immed Release 5 MG TABLET PO (11:05)
[2023-04-26 12:22] VITALS: BP 127/72; PULSE 93; RESP 16; TEMP 36.6; O2SAT 95
== END 2023-04-26 12:26 | disposition home or self-care (01) ==
PROVIDERS: Emergency Provider Emergency Medicine Emergency Medical Services; PCP Internal Medicine
DX: S62.102A Fracture of unspecified carpal bone, left wrist, initial encounter for closed fracture (principal); L73.2 Hidradenitis suppurativa; L02.211 Cutaneous abscess of abdominal wall; F17.210 Nicotine dependence, cigarettes, uncomplicated; M25.532 Pain in left wrist; W01.0XXA Fall on same level from slipping, tripping and stumbling without subsequent striking against object, initial encounter; Y93.9 Activity, unspecified; Y92.9 Unspecified place or not applicable; Y99.8 Other external cause status; Z79.899 Other long term (current) drug therapy
CPT/HCPCS: 29125; 73110; 73130; 99283; 99284

== ENCOUNTER 2023-04-30 10:03 | Outpatient (AMB) | payer OTHER, SELFPAY ==
[2023-04-30 10:12] VITALS: BP 130/80; BMI 38.0
--- NOTE | 2023-04-30 10:12 | A.OFFVIS_ITS ---
Intake Vital Signs 04/30/23 10:12 Height 6 ft Weight 280 lb BMI 38.0 BP 130/80 Blood Pressure Location Lt brachial Position Sitting Intake Visit Reasons: multiple abscess, on abx Intake Note: Patient is seen in office for ER follow up visit, following multiple abscesses. Pt c/o: was given antbx at the ED, has 3 in the rt groin area, one near the buttock, right axilla, and abdomen area, onset 6 month, has discharge in the groin area, bloody , unsure of redness, very painful ER: 04/26/23 Dx: hidradenitis suppurativa Personal Trainer Required: No Accompanied by: Self / Same As Patient Allergies From [facility] Allergy (Severe, Uncoded 04/30/23 10:18) ANAPHYLAXIS Medication List - Last Reconciled 04/30/23 by Candido Thornotn MD cephalexin 500 mg PO Q12H 7 days chlorhexidine gluconate 4% (Hibiclens) Lather from neck to toes in the shower. Leave on body for 2 minutes before rinsing. Use 3 times weekly. 2 doses doxycycline hyclate 100 mg PO BID 7 days ibuprofen 600 mg PO TID PRN naproxen 500 mg PO BID PRN 7 days oxycodone 5 mg PO Q6H PRN oxycodone 5 mg PO Q8H PRN oxycodone-acetaminophen 5-325 mg (Percocet) 1 tab PO Q8H PRN HPI HPI Comments History of Present Illness Details 38-year-old male patient presenting for evaluation of multiple skin infections. He was seen in the emergency department and placed on oral antibiotics. He was also provided pain medication. He reports continued drainage from multiple wounds including in his abdomen, right groin and right axilla. He has been going on for at least 6 months. He presents today for ER follow-up. [facility] Medical History Smoker Kidney stone Surgical History History of cystoscopy History of lithotripsy History of incision and drainage Family History Paternal Grandmother Lung cancer Social History Household Members Other:: Mother Are you a primary healthcare facility administrator to a significant other at home: No Do you presently have visiting nurse or other home services: No Alcohol intake: current Alcohol intake frequency: 3 or more drinks per day Patient Tobacco Use Status: Current everyday Tobacco user Tobacco use type: Cigarette Cigarette Packs Per Day: 1 Cigarettes Per Day: 20.0 Years Smoked: 15 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 No abscess is appreciated. Palpation in the midline abdomen produces a small amount of purulence discharge from an open area in the midline abdomen. Dry sterile dressings were applied. Neuro General: patient oriented x3 Extrem Other: Skin lesions as noted above. General: Yes normal to inspection Assessment & Plan Assessment & Plan (1) Hidradenitis: Code(s): L73.2 - Hidradenitis suppurativa (2) Folliculitis: Code(s): L73.9 - Follicular disorder, unspecified Plan Recommend skin contamination with Hibiclens scrub 3 times weekly. He should also follow-up with Dermatology for the possibility of additional biologic treatment for the hidradenitis. No surgical intervention is required at this time. I recommended avoiding touching the open wounds with his hands. He should meticulous with his hand washing. He should follow up as needed. Medications: New chlorhexidine gluconate 4% (Hibiclens) Lather from neck to toes in the shower. Leave on body for 2 minutes before rinsing. Use 3 times weekly. 236 mL 2RF 2 doses oxycodone Partial Fill upon patient request. 5 mg PO Q8H PRN 10 tabs 0RF pain Discontinued oxycodone Partial Fill upon patient request. Discontinued Reason: Patient Completed Course 5 mg PO TID PRN 9 caps 0RF pain 3 days Coding Level of Care Code Est Pt Level 3 (17216) Diagnoses Hidradenitis L73.2 Folliculitis L73.9
== END 2023-04-30 10:39 | disposition home or self-care (01) ==
PROVIDERS: PCP Internal Medicine; Visit Provider Surgery
DX: L73.2 Hidradenitis suppurativa (principal); L73.9 Follicular disorder, unspecified
CPT/HCPCS: 99213

== ENCOUNTER → 2023-04-30 10:03 | Outpatient (BNVA) | payer OTHER, SELFPAY | PROVIDERS: PCP Internal Medicine; Visit Provider Surgery | DX: L73.2 Hidradenitis suppurativa (principal); L73.9 Follicular disorder, unspecified | CPT/HCPCS: 99212 ==

== ENCOUNTER 2023-05-01 08:36 | Outpatient (AMB) | payer OTHER, SELFPAY ==
--- NOTE | 2023-05-01 08:41 | A.OFFVIS_ITS ---
Intake Vital Signs 05/01/23 08:42 Height 6 ft Weight 280 lb BMI 38.0 Intake Visit Reasons: FC- Fracture of triquetral bone of left wrist Intake Note: Bhavik rayo 38 year old right hand dominant male presents today for an ER follow up of left wrist fx, DOI 04/19/23. Patient reports he fell landing on his left arm when attempting to roller skate. He presented to [facility] ED a few days later where xrays were taken. Currently he has constant pain with a pain level 10 out of 10. Numbness and tingling that radiates up to his elbow. Finds no relief with pain medication that was prescribed at ED. States that the other night he fell for a second time re-injuring his wrist. Allergies From [facility] Allergy (Severe, Uncoded 05/01/23 08:45) ANAPHYLAXIS HPI FC- Fracture of triquetral bone of left wrist HPI Details 38-year-old right hand dominant male who presents to the office today for an ER follow-up of left wrist injury s/p sustaining fall while attempting to roller skate, 04/19/23. He was seen at ED a few days later where x-rays were performed. He reports he sustained another fall downstairs at night, reinjuring his wrist. He currently states he has chronic pain in his wrist and rates the pain as 10 on the scale of 0-10. He also c/o numbness and tingling in his wrist which radiates up to his elbow. He finds no relief with pain medication presc ribed by the ED. [facility] Medical History (Updated 05/01/23 @ 10:00 by Shyann Andersen PA-C) Smoker Kidney stone Surgical History (Updated 05/01/23 @ 08:46 by LES Frias) Hx of hernia repair History of cystoscopy History of lithotripsy History of incision and drainage Family History Paternal Grandmother Lung cancer Social History Household Members Other:: Mother Are you a primary child care sitter to a significant other at home: No Do you presently have visiting nurse or other home services: No Alcohol intake: current Alcohol intake frequency: 3 or more drinks per day Patient Tobacco Use Status: Current everyday Tobacco user Tobacco use type: Cigarette Cigarette Packs Per Day: 1 Cigarettes Per Day: 20.0 Years Smoked: 15 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 He has tenderness over the dorsal side of hand in line with the triquetrum. No numbness and tingling. He can fully extend all digits and bring his hand to a closed fist. NVI. Office Procedures Casting/Splints 49946-Wtlj/Wrist Cast Application Procedure code (CPT) selection complete Fracture Care Fracture Billing Code: Fracture Billing Code Results Reviewed Results Reviewed: X-rays of the left hand obtained at ED on 04/26/23 show evidence of a minimally displaced triquetrum fracture. Assessment & Plan Assessment & Plan (1) Triquetral fracture: Code(s): S62.113A - Displaced fracture of triquetrum [cuneiform] bone, unspecified wrist, initial encounter for closed fracture Qualifiers: Encounter type: initial encounter Fracture type: closed Fracture alignment: displaced Laterality: left Qualified Code(s): S62.112A - Displaced fracture of triquetrum [cuneiform] bone, left wrist, initial encounter for closed fracture Plan He was placed a short arm cast which he will wear for the next 4-6 weeks. He will avoid any type of lifting, pushing, pulling or carrying greater than a cellphone. He will see me back in 4-6 weeks with cast off and new x-rays, sooner if needed. Patient Instructions: Scribed for Shyann Andersen PA-C, by Huang Teran medical territory manager, on 05/01/2023 at 8:30 AM LAILA. Shyann Durant PA-C, have personally reviewed and agree with the information entered by the scribe. Coding Level of Care Code Est Pt Level 3 (94160) Diagnoses Closed displaced fracture of triquetrum of left wrist, initial encounter S62.112A Encounter type: initial encounter Fracture type: closed Fracture alignment: displaced Laterality: left CPT Codes Casting - CPT: 09736-Vbfg/Wrist Cast Application ([id number]) Fracture Care - Fracture Billing Code: Fracture Billing Code ([id number])
[2023-05-01 08:42] VITALS: BMI 38.0
== END 2023-05-01 09:33 | disposition home or self-care (01) ==
LOC: HO.HOS 08:36
PROVIDERS: PCP Internal Medicine; Visit Provider Physician Assistant
DX: S62.112A Displaced fracture of triquetrum [cuneiform] bone, left wrist, initial encounter for closed fracture (principal); V00.121A Fall from non-in-line roller-skates, initial encounter
CPT/HCPCS: 25630; 99213

== ENCOUNTER → 2023-05-01 08:36 | Outpatient (BNVA) | payer OTHER, SELFPAY | PROVIDERS: PCP Internal Medicine; Visit Provider Physician Assistant | DX: S62.112A Displaced fracture of triquetrum [cuneiform] bone, left wrist, initial encounter for closed fracture (principal) | CPT/HCPCS: 25630; 99212 ==

== ENCOUNTER 2023-05-29 11:35 | Outpatient (REF) | payer OTHER, SELFPAY ==
--- NOTE | ~2023-05-29 | XR_ITS ---
EXAMINATION: XR HAND, LEFT CLINICAL INFORMATION: Pain in left hand COMPARISON: Left hand 04/26/2023 TECHNIQUE: PA, nonstandard lateral and oblique views of the left hand. FINDINGS: Previously seen triquetral fracture is not well demonstrated on the current study. Slight ulnar positive variance Joint spaces are maintained. No erosions or soft tissue calcifications. XR/XR hand LT min 3V IMPRESSION: Previously seen triquetral fracture is not well demonstrated on the current study. No true lateral view is obtained.
== END 2023-05-29 11:36 | disposition home or self-care (01) ==
LOC: HO.HOSX 11:35
PROVIDERS: PCP Internal Medicine; Visit Provider Physician Assistant
DX: S62.112D Displaced fracture of triquetrum [cuneiform] bone, left wrist, subsequent encounter for fracture with routine healing (principal)
CPT/HCPCS: 73130; 99212

== ENCOUNTER 2023-05-29 11:35 | Outpatient (AMB) | payer OTHER, SELFPAY ==
--- NOTE | 2023-05-29 11:52 | MHC.OFFVIS ---
Intake Vital Signs 05/29/23 11:54 Height 6 ft Weight 280 lb BMI 38.0 Intake Visit Reasons: ov- Fracture of triquetral bone of left wrist Intake Note: Bhavik rayo 38 year old right hand dominant male presents today for an follow up of left wrist fx, DOI 04/19/23. Patient reports his cast broke and started to unravel so he had removed cast. He states having a recent fall about 4 days ago. His pain is located in his wrist and will radiate into his elbow. After his cast was removed he used an breana wrap. Allergies From [facility] Allergy (Severe, Uncoded 05/29/23 11:59) ANAPHYLAXIS HPI ov- Fracture of triquetral bone of left wrist HPI Details 38-year-old right hand dominant male who returns to the office today for a follow-up of left wrist fracture, 04/19/23. He reports his cast broke and started to unravel so he had the cast removed. He was using an breana wrap after his cast was removed. He also states he had a recent fall about 4 days ago. He currently states he has increased pain in his wrist which radiates up into his elbow. He also experiences clicking in his wrist with moving side to side. He states he has been working without the cast on which includes pusing and pulling/carrying. [facility] Medical History (Updated 06/01/23 @ 21:49 by Shyann Andersen PA-C) Smoker Kidney stone Surgical History Hx of hernia repair History of cystoscopy History of lithotripsy History of incision and drainage Family History Paternal Grandmother Lung cancer Social History Household Members Other:: Mother Are you a primary caregiver services home to a significant other at home: No Do you presently have visiting nurse or other home services: No Alcohol intake: current Alcohol intake frequency: 3 or more drinks per day Patient Tobacco Use Status: Current everyday Tobacco user Tobacco use type: Cigarette Cigarette Packs Per Day: 1 Cigarettes Per Day: 20.0 Years Smoked: 15 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 He has tenderness over the dorsal side of hand in line with the triquetrum. No numbness and tingling. He can fully extend all digits and bring his hand to a closed fist. NVI. Results Reviewed Results Reviewed: Xrays were obtained in the office today and personally reviewed by me of the left hand show stable triquetrial fracture Assessment & Plan Assessment & Plan (1) Triquetral fracture: Code(s): S62.113A - Displaced fracture of triquetrum [cuneiform] bone, unspecified wrist, initial encounter for closed fracture Qualifiers: Encounter type: subsequent encounter Fracture alignment: displaced Fracture type: closed Laterality: left Fracture healing: with routine healing Qualified Code(s): S62.112D - Displaced fracture of triquetrum [cuneiform] bone, left wrist, subsequent encounter for fracture with routine healing Plan I stressed the importance of compliance with wrist splint in the office today. He will avoid any type of lifting, pushing, pulling or carrying greater than 5 pounds given the discomfort he is experiencing. He states that he has to work and he therefore cannot entirely follow the recommendations given by me for the treatment which is likely to cause him increased pain. He will use the brace with any type of activities. He will continue to work on ROM exercises and see me back in 4-6 weeks with new x-rays, sooner if needed. Patient left office today without splint because we did not have his size and the patient insisted he would return when we had his size. Orders: Orders XR hand LT min 3V 05/29/23 M79.642 - Pain in left hand Patient Instructions: Scribed for Shyann Andersen PA-C, by Huang Teran medical assistant cardiology, on 05/29/2023 at 11:30 AM EST. Shyann Durant PA-C, have personally reviewed and agree with the information entered by the scribe. Coding Level of Care Code Global (53447) Diagnoses Closed displaced fracture of triquetrum of left wrist with routine healing, subsequent encounter S62.112D Encounter type: subsequent encounter Fracture alignment: displaced Fracture type: closed Laterality: left Fracture healing: with routine healing
[2023-05-29 11:54] VITALS: BMI 38.0
== END 2023-05-29 12:14 | disposition home or self-care (01) ==
PROVIDERS: PCP Internal Medicine; Visit Provider Physician Assistant
DX: S62.112D Displaced fracture of triquetrum [cuneiform] bone, left wrist, subsequent encounter for fracture with routine healing (principal)
CPT/HCPCS: 99024

== ENCOUNTER 2023-06-13 09:01 | Inpatient (IN) | payer OTHER, SELFPAY ==
[2023-06-13] VITALS (14 sets, daily range): BP systolic 121–168; BP diastolic 66–93; PULSE 97–121; RESP 14–19; TEMP 36.1–37.6; O2SAT 90–95; BMI 37.3; BMI 37.5
--- NOTE | ~2023-06-13 | CT_ITS ---
EXAMINATION: CT PELVIS WITH CONTRAST CLINICAL INFORMATION: Pain. Right scrotal abscess. COMPARISON: CT of abdomen pelvis from 01/16/2021. TECHNIQUE: Multidetector CT imaging examination of the pelvis is performed with intravenous administration of 100 mL Omnipaque 350. This CT examination was performed using dose optimization techniques as appropriate, variously including the following: *Automated exposure control *Adjustment of mA and/or kV according to patient size (this includes techniques or standardized protocols for targeted exams where dose is matched to indication/reason for exam; i.e. extremities or head) *Use of iterative reconstruction technique DLP: 714 mGy-cm FINDINGS: No dilated loops of bowel within the visualized lower abdomen and pelvis. The sigmoid colon and rectum are unremarkable. No pelvic free fluid. Prostate gland is normal in size. Urinary bladder is normal. No iliac chain lymphadenopathy. Superficial inguinal lymph nodes are measuring up to 1 cm short axis dimension on the left and 1.3 cm short axis dimension of the right. No lower abdominal wall or inguinal hernia. At the lower abdominal wall near the level of pubic symphysis, there is a small curvilinear tract that extends over a craniocaudal distance of approximately 3 cm. There is no gas within this tract; however, mild edema is seen in the adjacent subcutaneous tissue. The testicles have a normal appearance. The scrotal soft tissues are edematous (predominantly within the right hemiscrotum) and there appears to be a small hydrocele. No rim-enhancing fluid collection or soft tissue gas in the scrotum or perineal region. Musculoskeletal structures are unremarkable. CT/CT pelvis w IV con IMPRESSION: * There is edema/inflammation of the right hemiscrotum with presence of a right hydrocele. However, no focal rim-enhancing collection or soft tissue gas. * Also observed is a small curvilinear tract in superficial subcutaneous tissue of the lower abdominal wall. Correlate for any purulent drainage from the skin in this region of inflammation. * Mild right inguinal lymphadenopathy is present.
--- NOTE | ~2023-06-13 | US_ITS ---
EXAMINATION: US SCROTUM CLINICAL INFORMATION: Swelling, erythema, evaluate for abscess. COMPARISON: None available. TECHNIQUE: A sonogram of the scrotum was performed assessing maradiaga-scale appearance and color Doppler flow. Spectral Doppler analysis of the arterial and venous flow were performed in the testes bilaterally. FINDINGS: The right testicle is measuring 4.6 x 3.1 x 3.8 cm. Volume 28 mL The left testicle measures 4.1 x 2.7 x 2.8 cm. Volume 16 mL. Importantly the testicular vascularity is felt to be within normal limits. Arterial and venous flow are demonstrated bilaterally. No evidence for lesion. Note is made of significant scrotal wall thickness but no evidence of a fluid collection associated with a scrotal wall. There is a small hydrocele on the right. Also noted in the right testicle is microlithiasis Partially visualized epididymal structures are grossly within normal limits. US/US scrotum IMPRESSION: No abscess is detected here. Diffuse scrotal wall thickening consistent with a possible inflammatory change but again no loculated collection. Small right-sided hydrocele Note is made of microlithiasis associated with the right testicle. Urologic consultation is recommended
--- NOTE | ~2023-06-13 | XR_ITS ---
EXAMINATION: XR CHEST CLINICAL INFORMATION: Shortness of breath COMPARISON: None available. TECHNIQUE: Frontal view of the chest was obtained. FINDINGS: No significant abnormality is noted involving the heart, lungs, mediastinum, bony thorax or soft tissues. There is mild elevation of the right hemidiaphragm. Some minimal left basilar scarring is present. XR/XR chest 1V IMPRESSION: No acute intrathoracic disease.
--- NOTE | 2023-06-13 09:21 | ED_ITS ---
HPI - General Adult General Chief complaint: Urogenital-Male Stated complaint: cyst on testicle fever Time Seen by Provider: 06/13/23 09:21 Source: patient Mode of arrival: ambulatory Limitations: no limitations History of Present Illness HPI narrative: Patient is a 38 year old assigned male at , with a history of nephrolithiasis, presenting with a 2 day history of a swollen, painful scrotum and right testicle. Patient reports he was recently treated, a month ago, for a suprapubic cyst that he had for 7 months. Two days ago he noticed a similar cyst like mass on the right side of his scrotum. The patient reports that he used a needle in an attempt to drain the fluid from the mass as it was causing him some discomfort. Over the next two days his right testicle became swollen, warm, and exquisitely tender to touch. Patient reports pain with any movement and associated fever/chills, dizziness, body/joint aches, muscle spasms and generalized tremors. Patient reports he recently finished a course of cefalexin and doxycycline for his suprapubic cyst. Patient also endorses a history of OUD but denies IV route of administration. MD complaint: Testicular pain Onset (ago): day(s) (2) Location: genitals (R testicle) Radiation: non-radiation Severity: mild Severity scale (1-10): 4 Quality: aching and crushing Pain Consistency: constant Relieving factors: rest Exacerbating factors: movement Associated symptoms: diaphoresis, fever/chills, headaches and shortness of breath Treatments prior to arrival: none Related Data Allergies Allergy/AdvReac Type Severity Reaction Status Date / Time From YELLOW JACK[facility] VENOM Allergy Severe ANAPHYLAXIS Uncoded 06/13/23 09:17 TREATMENT Review of Systems 2 Constitutional: Constitutional: Reports no additional constitutional complaints and Denies weakness Eyes: Eyes: Reports no additional eye complaints, Denies blurry vision, Denies change in vision, Denies diplopia, Denies eye discharge, Denies loss of vision and Denies eye pain Cardiovascular: Cardiovascular: Reports no additional cardiovascular complaints, Denies chest pain, Denies lightheadedness, Denies Loss of Consciousness and Denies dyspnea Respiratory: Respiratory: Reports no additional respiratory complaints and Denies dyspnea Gastrointestinal: Gastrointestinal: Reports no additional gastrointestinal complaints, Denies abdominal pain, Denies melena, Denies hematochezia, Denies change in bowel habits and Denies change in stool character Genitourinary: Genitourinary: Reports no additional male genitourinary complaints, Denies hematuria, Denies oliguria, Denies difficulty urinating, Denies dysuria, Denies urinary frequency, Denies urinary hesitancy, Denies urinary incontinence and Denies urinary urgency Musculoskeletal: Musculoskeletal: Reports no additional musculoskeletal complaints, Denies numbness and Denies tingling Neurologic: Denies loss of vision, Denies numbness, Denies tingling and Denies weakness Psychiatric: Psychiatric: Reports no additional psychiatric complaints Endocrine: Endocrine: Reports no additional endocrine complaints Hematologic/Lymphatic: Hematologic/Lymphatic: Reports no additional hematologic/lymphatic complaints Allergic/Immunologic: Allergic/Immunologic: Reports no additional allergic/immunologic complaints [facility] Past Medical History Medical History Smoker Kidney stone Surgical History Hx of hernia repair History of cystoscopy History of lithotripsy History of incision and drainage Family History Family History Paternal Grandmother Lung cancer Social History Social History Household Members Other:: Mother Are you a primary career development coordinator/teacher to a significant other at home: No Do you presently have visiting nurse or other home services: No Alcohol intake: current Alcohol intake frequency: holidays/special occasions only Patient Tobacco Use Status: Current everyday Tobacco user Tobacco use type: Cigarette Cigarette Packs Per Day: 1 Cigarettes Per Day: 20.0 Years Smoked: 15 Smoked in Last 30 Days: Yes Use of substances other than those prescribed or required for medical reasons: No Advance Directives: No 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 Physical Exam ED Vital Signs: Vital Signs - 24 hr 06/13/23 09:18 06/13/23 09:59 06/13/23 10:00 Temperature 99.6 F 99 F Pulse Rate 121 H 108 H Respiratory Rate 16 19 15 Blood Pressure 163/93 H 121/73 Pulse Oximetry 94 90 L Oxygen Delivery Method Room Air Room Air Oxygen Flow Rate 06/13/23 10:08 06/13/23 11:28 06/13/23 11:31 Temperature Pulse Rate 107 H Respiratory Rate 18 14 Blood Pressure 131/66 Pulse Oximetry 95 95 Oxygen Delivery Method Nasal Cannula Nasal Cannula Oxygen Flow Rate 2 2 06/13/23 13:01 06/13/23 13:14 Temperature Pulse Rate Respiratory Rate Blood Pressure 144/78 H 132/76 Pulse Oximetry Oxygen Delivery Method Oxygen Flow Rate BMI result Body Mass Index 37.3 Const General: cooperative, alert, awake and acute distress Nutritional Appearance: obese Orientation/consciousness: patient oriented x3 Limitations: no limitations HENMT Head: Yes normal to inspection Ears: hearing grossly normal bilaterally General nose exam: Normal external nose present Face and sinus: Yes normal facial exam Eyes General: appearance normal, both eyes and all related structures Resp Effort & Inspection: normal respiratory effort and able to speak in complete sentences Cardio Jugular venous distension: no JVD Rate: tachycardic Rhythm: regular rhythm Male General Exam: Yes edema diffuse (R > L), Yes erythema, Yes Genital lesions present and Yes tenderness Penis: circumcised and Genital lesions present Scrotum: edematous, erythematous and scrotal mass on the right erythematous, fluctuant and warm Testes: Enlarged testicle(s) present on the right Neuro General: patient oriented x3 Medications Administered Generic Name Dose Route Start Last Admin Trade Name Freq PRN Reason Stop Dose Admin Morphine Sulfate 4 mg 06/13/23 13:27 06/13/23 13:50 Morphine Sulfate 4 Mg/Ml Cartridge IVPUSH 4 mg Q4H PRN Administration Pain, Severe (Pain Scale 7-10) Protocol Discontinued Medications Generic Name Dose Route Start Last Admin Trade Name Freq PRN Reason Stop Dose Admin Enoxaparin Sodium 40 mg 06/13/23 13:30 06/13/23 13:52 Enoxaparin Sodium 40 Mg/0.4 Ml Syringe SUBCUT 40 mg Q24H TAYLER Administration Hydromorphone HCl 1 mg 06/13/23 09:32 06/13/23 09:59 Hydromorphone Hcl 1 Mg/Ml Syringe IVPUSH 06/13/23 09:33 1 mg ONCE ONE Administration Protocol Hydromorphone HCl 1 mg 06/13/23 11:22 06/13/23 11:31 Hydromorphone Hcl 1 Mg/Ml Syringe IVPUSH 06/13/23 11:23 1 mg ONCE ONE Administration Protocol Piperacillin Sod/Tazobactam 50 mls @ 100 mls/hr 06/13/23 09:31 06/13/23 10:24 Sod 3.375 gm/ Sodium Chloride IV 06/13/23 10:00 Infused ONCE ONE Infusion Vancomycin HCl 2,000 mg in 500 mls @ 250 mls/hr 06/13/23 10:00 06/13/23 11:13 Vancomycin/Ns IV 06/13/23 11:59 250 mls/hr ONCE ONE Administration Sodium Chloride 1,000 mls @ 999 mls/hr 06/13/23 10:30 06/13/23 13:00 Ns IV 06/13/23 11:30 Infused .Q1H1M TAYLER Infusion Iohexol 100 ml 06/13/23 10:50 06/13/23 10:51 Iohexol 350 Mg/Ml 100 Ml Infus..Btl IV 06/13/23 10:51 100 ml ONCE ONE Administration Ondansetron HCl 4 mg 06/13/23 09:32 06/13/23 10:02 Ondansetron Hcl 4 Mg/2 Ml Vial IVPUSH 06/13/23 09:33 4 mg ONCE ONE Administration Medical Decision Making Medical Decision Making MDM Narrative: Patient is a 38 year old assigned male at with a history of hidradenitis presenting to the emergency department today with right scrotal pain. Patient's physical exam was as noted in the physical exam portion of this note. Patient's blood work showed a uri glucose of 359, HGBA1C of 10, lactic acid of 3.2, mag of 1.5, total bilirubin of 2.2, AST of 175, ALT of 135, alk phos of 127, and beta-hydroxybutyrate 0.53. Patient's urine showed no acute process. Patient's chest x-ray showed no acute process. Patient's pelvic CT showed edema/inflammation of the right hemiscrotum with presence of a right hydrocele with no focal rim-enhancing collection or soft tissue gas. Additionally, showed a small curvilinear tract in superficial subcutaneous tissue of the lower abdominal wall. Patient's clinical diagnosis is most consistent with right scrotal cellulitis and concern for sepsis without septic shock (@0945). Given patient's work up results today, he is considered a diabetic. This is a new diagnosis for the patient. Patient was given IV Zosyn and Vancomycin. While in the department, the patient's scrotal wound began to drain - culture was obtained. I spoke to Dr. Robin who recommended medical admission with continued IV antibiotics and DM management. I spoke to the hospitalist team who agreed to admission. I explained my physical exam findings as well as all test results to the patient. I answered all questions asked by the patient. Patient verbalized agreement and understanding with this treatment plan and admission. Differential Diagnosis Differential Diagnoses: The differential diagnosis associated with the presentation includes Sepsis Scrotal abscess Scrotal cellulitis Hypomagnesemia Diabetes Admission/Observation Consideration of admission/observation: Escalation of care including admission/observation considered Patient admitted. Consult Healthcare Provider Management of the patient was discussed with: Hospitalist (agreed to admission) and Medical Authorization Specialist (spoke to Dr. Robin as noted in the MDM Rationale portion of this note.) Lab Data [facility] Lab Attestation statement: I reviewed the patient's lab results. My interpretation of these results are in the MDM Rationale portion of this note. 06/13/23 09:45 06/13/23 09:45 Labs: Lab Results 06/13/23 06/13/23 Range/Units 09:45 12:24 WBC 9.6 (4.8-10.8) X10*3/uL RBC 4.13 L (4.60-5.80) X10*6/uL Hgb 14.2 (14.0-18.0) g/dl Hct 39.7 L (42.0-52.0) % MCV 96.1 (80.0-98.0) fL MCH 34.4 H (27.0-33.0) pg MCHC 35.8 (31.0-36.0) g/dl RDW 12.8 (11.0-16.0) % Plt Count 117 L D (160-400) X10*3/uL MPV 11.4 (9.4-12.4) fL Immature Gran % (Auto) 0.6 H (0.0-0.4) % Neut % (Auto) 62.9 (45-73) % Lymph % (Auto) 18.2 L (20-40) % [place] % (Auto) 15.3 H (2-11) % Eos % (Auto) 2.0 (0-4) % Baso % (Auto) 1.0 (0-2) % Lymph # (Auto) 1.7 (1.2-4.9) X10*3/uL [place] # (Auto) 1.5 H (0.1-1.2) X10*3/uL Eos # (Auto) 0.2 (0.0-0.4) X10*3/uL Baso # (Auto) 0.1 (0.0-0.2) X10*3/uL Abs Immat Gran (auto) 0.06 H (0.00-0.03) X10*3/uL Absolute Neuts (auto) 6.0 (2.0-8.3) x10*3/uL Absolute Nucleated RBC 0.000 (0.0-0.012) X10*3/uL Nucleated RBC % (auto) 0.0 (0.0-0.2) /100WBC Sodium 131 L (135-145) mmol/L Potassium 3.8 (3.3-5.1) mmol/L Chloride 96 (96-108) mmol/L Carbon Dioxide 22 (22-29) mmol/L Anion Gap 17 (12-20) BUN 5 L (9-16) mg/dL Creatinine 0.71 (0.5-1.4) mg/dL Estim Creat Clear Calc 194.3 Estimated GFR > 60 Random Glucose 359 H* (60-115) mg/dL Estimat Average Glucose 240 mg/dL Hemoglobin A1c % 10.0 H (<6.0) % Lactic Acid 3.2 H* (0.5-2.0) mmol/L Lactic Acid F/U @ 2Hr 1.5 (0.5-2.0) mmol/L Calcium 9.0 (8.4-10.2) mg/dL Magnesium 1.5 L (1.6-2.6) mg/dL Total Bilirubin 2.2 H (0.0-1.0) mg/dL AST 175 H (5-37) U/L ALT 135 H (0-40) U/L Alkaline Phosphatase 127 H (39-117) U/L Total Protein 8.6 H (6.5-8.0) g/dL Albumin 3.4 L (3.5-5.0) g/dL Beta-Hydroxybutyrate 0.53 H (0.02-0.27) mmol/L Influenza Type A (PCR) NEGATIVE (Negative) Influenza Type B (PCR) NEGATIVE (Negative) RSV RNA Qual (PCR) NEGATIVE (Negative) SARS-CoV-2 RNA (RT-PCR) NEGATIVE (Negative) Independent Interpretation I performed an independent interpretation of an: Plain X-Ray and CT Scan Interpretation: My interpretation is in agreement with the radiologist's impression of these imaging studies. - EXAMINATION: XR CHEST CLINICAL INFORMATION: Shortness of breath COMPARISON: None available. TECHNIQUE: Frontal view of the chest was obtained. FINDINGS: No significant abnormality is noted involving the heart, lungs, mediastinum, bony thorax or soft tissues. There is mild elevation of the right hemidiaphragm. Some minimal left basilar scarring is present. XR/XR chest 1V IMPRESSION: No acute intrathoracic disease. Dictated By: Mikey Emanuel MD Signed By: Electronically signed by Mikey Emanuel MD 06/13/23 1056 - EXAMINATION: CT PELVIS WITH CONTRAST CLINICAL INFORMATION: Pain. Right scrotal abscess. COMPARISON: CT of abdomen pelvis from 01/16/2021. TECHNIQUE: Multidetector CT imaging examination of the pelvis is performed with intravenous administration of 100 mL Omnipaque 350. This CT examination was performed using dose optimization techniques as appropriate, variously including the following: *Automated exposure control *Adjustment of mA and/or kV according to patient size (this includes techniques or standardized protocols for targeted exams where dose is matched to indication/reason for exam; i.e. extremities or head) *Use of iterative reconstruction technique DLP: 714 mGy-cm FINDINGS: No dilated loops of bowel within the visualized lower abdomen and pelvis. The sigmoid colon and rectum are unremarkable. No pelvic free fluid. Prostate gland is normal in size. Urinary bladder is normal. No iliac chain lymphadenopathy. Superficial inguinal lymph nodes are measuring up to 1 cm short axis dimension on the left and 1.3 cm short axis dimension of the right. No lower abdominal wall or inguinal hernia. At the lower abdominal wall near the level of pubic symphysis, there is a small curvilinear tract that extends over a craniocaudal distance of approximately 3 cm. There is no gas within this tract; however, mild edema is seen in the adjacent subcutaneous tissue. The testicles have a normal appearance. The scrotal soft tissues are edematous (predominantly within the right hemiscrotum) and there appears to be a small hydrocele. No rim-enhancing fluid collection or soft tissue gas in the scrotum or perineal region. Musculoskeletal structures are unremarkable. CT/CT pelvis w IV con IMPRESSION: * There is edema/inflammation of the right hemiscrotum with presence of a right hydrocele. However, no focal rim-enhancing collection or soft tissue gas. * Also observed is a small curvilinear tract in superficial subcutaneous tissue of the lower abdominal wall. Correlate for any purulent drainage from the skin in this region of inflammation. * Mild right inguinal lymphadenopathy is present. Dictated By: Greg Bruce MD Signed By: Electronically signed by Greg Bruce MD 06/13/23 9042 Radiology Impression Discussion of test interpretation with radiology: I have reviewed the radiologist's reading. Chronic Conditions Patient?s care impacted by: Diabetes (newly diagnosed) Critical Care Time Critical Care Time Critical Care Time: Yes Total Critical Care Time: 125 Attestation: I spent 125 minutes of Critical Care Time with this patient. This does not include time spent on separately reported billable procedures. Discharge Plan Discharge Clinical Impression: Cellulitis of scrotum, Diabetes mellitus, new onset Patient Disposition: Admitted As Inpatient
[2023-06-13] MEDS: Piperacillin Sodium/Tazobactam 3.375 GM in 0.9 % Sodium Chloride 50 ML IV ×3 (09:53→21:04)
[2023-06-13 09:55] LABS: MANUAL DIFF FLAG NO
[2023-06-13] MEDS: HYDROmorphone HCl 1 MG/ML SYRINGE IVPUSH ×2 (09:59→11:31)
[2023-06-13 10:02] LABS: Basophils Absolute Auto 0.1 X10*3/uL (0.0-0.2); Eosinophils Absolute Auto 0.2 X10*3/uL (0.0-0.4); Hematocrit 39.7 % (42.0-52.0); Hemoglobin 14.2 g/dl (14.0-18.0); Imm Gran Abs Auto 0.06 X10*3/uL (0.00-0.03); Imm Gran Pct Auto 0.6 % (0.0-0.4); Lymphocytes Absolute Auto 1.7 X10*3/uL (1.2-4.9); Lymphocytes Percent Auto 18.2 % (20-40); Mean Corpuscular HGB Conc 35.8 g/dl (31.0-36.0); Mean Corpuscular Hemoglobin 34.4 pg (27.0-33.0); Mean Corpuscular Volume 96.1 fL (80.0-98.0); Monocytes Absolute Auto 1.5 X10*3/uL (0.1-1.2); Monocytes Percent Auto 15.3 % (2-11); Neutrophils Percent Auto 62.9 % (45-73); Red Blood Count 4.13 X10*6/uL (4.60-5.80); Red Cell Distribution Width 12.8 % (11.0-16.0); White Blood Count 9.6 X10*3/uL (4.8-10.8)
[2023-06-13] MEDS: ondansetron HCL 4 MG/2 ML VIAL IVPUSH (10:02)
[2023-06-13 10:23] LABS: Alanine Aminotransferase 135 U/L (0-40); Albumin Level 3.4 g/dL (3.5-5.0); Alkaline Phosphatase 127 U/L (39-117); Anion Gap 17 (12-20); Aspartate Amino Transferase 175 U/L (5-37); Bilirubin Total 2.2 mg/dL (0.0-1.0); Blood Urea Nitrogen 5 mg/dL (9-16); Carbon Dioxide 22 mmol/L (22-29); Chloride 96 mmol/L (96-108); Creatinine Clr Calc Pharmacy 194.3; Estimated Glomerular Filt Rate > 60; Glucose Random 359 mg/dL (60-115); Lactic Acid 3.2 mmol/L (0.5-2.0); Magnesium 1.5 mg/dL (1.6-2.6); Potassium 3.8 mmol/L (3.3-5.1); Sodium 131 mmol/L (135-145); Total Protein 8.6 g/dL (6.5-8.0)
[2023-06-13 10:29] LABS: Mean Platelet Volume 11.4 fL (9.4-12.4); Platelet Count 117 X10*3/uL (160-400)
--- NOTE | 2023-06-13 10:30 | PC.NURSE ---
pt in radiology
[2023-06-13 10:36] LABS: Influenza A PCR NEGATIVE (Negative); Influenza B PCR NEGATIVE (Negative); Resp Syncy Virus RNA Qual PCR NEGATIVE (Negative); SARS COV2 PCR INHOUSE NEGATIVE (Negative)
[2023-06-13] MEDS: iohexoL 350 MG/ML 100 ML INFUS..BTL IV (10:51)
--- NOTE | 2023-06-13 11:08 | PC.NURSE ---
back from ct
[2023-06-13] MEDS: 0.9 % Sodium Chloride 1,000 ML 999 ML IV (11:12)
[2023-06-13] MEDS: vancomycin/NS 2,000 MG/500 ML PLAST..BAG 250 MG IV (11:13)
--- NOTE | 2023-06-13 11:21 | PC.NURSE ---
multiple listed providers paged to ask if pt needs phenobarb as last drink charted 1 mo ago and CIWA remains 0- unable to find provider- able to get in [facility] clarified, md parnell responded, holding for now.
[2023-06-13 11:33] LABS: Estimated Average Glucose 240 mg/dL
[2023-06-13 11:42] LABS: Beta-Hydroxybutyrate 0.53 mmol/L (0.02-0.27)
[2023-06-13 11:54] LABS: Reflex Lactate? Lactic Acid Added
--- NOTE | 2023-06-13 12:16 | P.HPHOSP_ITS ---
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 Pt reports he was recently treated for a suprapubic cyst that appeared 7-8 months ago. Was painful and occasionally draining but did not seek medical care until last month on 04/26/2023. In ED brown-colored discharge was noted from area but pt refused additional workup and imaging to evaluate for fistula. Was discharged on 14-day course of cephalexin and doxycycline which was completed on 05/10/2023. Two days ago pt noted a similar cyst on his right scrotum that was painful and red. Attempted to drain the cyst with a needle but was unsuccessful. Reports cyst just popped and drained serosanguineous while sitting in hospital bed 20 minutes prior to interview and exam. Experiecned subjective fever and shaking chills, some nausea, and feeling dizzy and delirious. No chest pain/pressure, palpitations. Denies SOB. He denies any previous diagnosis of hidradenitis suppurativa, but states he has been getting similar small cyst-like masses for the past 8-9 months in axilla, groin, inner thigh, and buttock area. Has a remote hx of snorting heroin; denies IVDU and reprots being clean for past 9 years. Admits to drinking socially , perhaps a couple of beers every other day. Denies abdominal pain. ? In the ED pt was tachycardic up to 121 with elevated temperature of 99.6 degrees, and initially hypertensive up to 163/93, satting as low as 90% on RA. Labs were significant for sodium 131, random glucose 359, A1c 10.0, lactic acid 3.2 magnesium 1.5, bilirubin 2.2, AST 175, ALT 135, alk-phos 127. No leukocytosis. Beta hydroxybutyrate 0.53. Anion gap WNL at 17. Tested negative for flu, COVID, RSV. CXR showed no acute intrathoracic disease. CT?of pelvis found edema/inflammation of right hemiscrotum presence of right hydrocele, but no evidence of abscess or soft tissue gas. Also small curvilinear tract in superficial subcutaneous tissue lower abdominal wall. Pt was treated with Dilaudid, ondansetron, IVF, vanco, and Zosyn. Pt will be admitted to the hospital for treatment and further and evaluation of testicular cellulitis/abscess as well as new-onset uncontrolled type 2 diabetes. Review of Systems 2 Review of Systems: Right scrotal cyst/mass Scrotal pain and swelling and redness Subjective fever, shaking chills, nausea Dizziness Denies abdominal pain No shortness of breath Denies chest pain/pressure, palpitations [facility] Medical History Smoker Kidney stone Family History Paternal Grandmother Lung cancer Surgical History Hx of hernia repair History of cystoscopy History of lithotripsy History of incision and drainage Social History Household Members Other:: Mother Are you a primary managed care liaison to a significant other at home: No Do you presently have visiting nurse or other home services: No Alcohol intake: current Alcohol intake frequency: holidays/special occasions only Patient Tobacco Use Status: Current everyday Tobacco user Tobacco use type: Cigarette Cigarette Packs Per Day: 1 Cigarettes Per Day: 20.0 Years Smoked: 15 Smoked in Last 30 Days: Yes Use of substances other than those prescribed or required for medical reasons: No Advance Directives: No 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 Mental Status: Oriented to person, place and time. Eyes: Pupils are equal, round, and reactive to light. Ear, Nose, and Throat: Oropharynx clear, mucous membranes moist. Ears and nose without deformities. Trachea midline. Respiratory: Clear to auscultation bilaterally. No wheezing, rales, or rhonchi. Cardiovascular: S1, S2, tacky. No murmurs, rubs, or gallops. Gastrointestinal: Abdomen soft, non-tender, non-distended. Normal bowel sounds. Neurologic: Cranial nerves II-XII are grossly intact bilaterally. No focal neurological deficits. Moves all extremities spontaneously. Skin: Warm, dry. : Scrotum with warmth, tenderness, and small open draining area as pictured below. Tenderness to palpation up through right groin. Musculoskeletal: No cyanosis or clubbing. Extremities: No edema. Psychiatric: Normal mood and affect. Results Labs 06/13/23 09:45 06/13/23 09:45 Labs: Laboratory Results - last 24 hr 06/13/23 09:45 MCV 96.1 MCH 34.4 H MCHC 35.8 RDW 12.8 Plt Count 117 L D MPV 11.4 Immature Gran % (Auto) 0.6 H Neut % (Auto) 62.9 Lymph % (Auto) 18.2 L [facility] % (Auto) 15.3 H Eos % (Auto) 2.0 Baso % (Auto) 1.0 Lymph # (Auto) 1.7 [facility] # (Auto) 1.5 H Eos # (Auto) 0.2 Baso # (Auto) 0.1 Abs Immat Gran (auto) 0.06 H Absolute Neuts (auto) 6.0 Absolute Nucleated RBC 0.000 Nucleated RBC % (auto) 0.0 Anion Gap 17 Estim Creat Clear Calc 194.3 Estimated GFR > 60 Random Glucose 359 H* Estimat Average Glucose 240 Hemoglobin A1c % 10.0 H Lactic Acid 3.2 H* Calcium 9.0 Magnesium 1.5 L Total Bilirubin 2.2 H AST 175 H ALT 135 H Alkaline Phosphatase 127 H Total Protein 8.6 H Albumin 3.4 L Beta-Hydroxybutyrate 0.53 H Influenza Type A (PCR) NEGATIVE Influenza Type B (PCR) NEGATIVE RSV RNA Qual (PCR) NEGATIVE SARS-CoV-2 RNA (RT-PCR) NEGATIVE Imaging Radiologist's Impressions: Impressions Chest X-Ray 06/13/23 10:31 IMPRESSION: No acute intrathoracic disease. Pelvis CT 06/13/23 11:10 IMPRESSION: * There is edema/inflammation of the right hemiscrotum with presence of a right hydrocele. However, no focal rim-enhancing collection or soft tissue gas. * Also observed is a small curvilinear tract in superficial subcutaneous tissue of the lower abdominal wall. Correlate for any purulent drainage from the skin in this region of inflammation. * Mild right inguinal lymphadenopathy is present. 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 Pt will be admitted to the hospital for treatment and further and evaluation of testicular cellulitis/abscess as well as new-onset uncontrolled type 2 diabetes. Scrotal cellulitis/abscess Pain, erythema, swelling, right-sided cyst x2 days Recent history of similar suprapubic draining cyst, completed course of doxy and cephalexin 1 month prior Possibly secondary to hidradenitis suppurativa CT pelvis with edema and inflammation of scrotum with right hydrocele but no noticeable abscess collection CT also found small curvilinear tract and superficial subcutaneous tissue of lower abdominal wall Pt does not meet sepsis criteria: Tachycardia but no tachypnea, fever, leukocytosis; lactic acid 3.2 with repeat 1.5 Patient received IVF and started on broad-spectrum antibiotics in the ED Will treat with vancomycin and Zosyn, started 06/13/2023 Urology consult General surgery consult for possible fistula formation Hyponatremia Sodium 131 at time of presentation Receiving IVF Follow BMP Hypomagnesemia Magnesium 1.5 at time of presentation Will supplement with magnesium 2 g IV Transaminitis Bilirubin 2.2, AST 5, ALT 135, alk phos 127 Patient asymptomatic: Denies abdominal pain CT of abd/pelvis 01/16/21 showed fatty liver Likely secondary to alcohol use Will check hepatitis panel CIWA monitoring New onset type 2 diabetes Random glucose 359 with A1c 10.0 No anion gap, beta hydroxybutyrate 0.[address] on sliding scale insulin Diabetic diet Will place on maintenance IVF Will follow POC for next 24 hours to determine basal insulin needs Will need to follow up outpatient with PCP for continued management Full Code Attending:?Dr. Price DVT Prophylaxis: Pneumatic boots due to possible sugical procedure Pt will require a hospitalization of at least two nights for treatment of?scrotal cellulitis/abscess and new onset diabetes type 2. Due to patient's clinical presentation that includes subjectively appearing septic, patient required hospitalization for administration of IV antibiotics, IVF, close monitoring of POC these, and specialist consultation for possible procedures. Quality Stroke Does the patient have a stroke diagnosis?: No VTE Prior VTE?: No VTE Risk Level:: Medical - moderate - high VTE Device Contraindication: Treatment Not Indicated VTE Drug Contraindication: N/A - Med Ordered
[2023-06-13 12:46] LABS: ~Lactic Acid-LAB USE ONLY 1.5 mmol/L (0.5-2.0)
[2023-06-13 13:26] LABS: Appearance Urine Clear; Color Urine Dark Yellow; Glucose Urine UA >=1000 mg/dL (Negative); Leukocyte Esterase Urine Negative (Negative); Nitrite Urine Negative (Negative); PH 5.5 (5.0-9.0); Specific Gravity - Urine >= 1.030 (1.005-1.025); UMIC TRIGGER UACC YES; Urine Blood Moderate (2+) (Negative); Urine Ketones Trace mg/dL (Negative); Urine Protein Negative (Neg-Trace)
--- NOTE | 2023-06-13 13:30 | PHA.MEDREC ---
Pharmacy Consult ? Medication Reconciliation Pharmacy has completed the medication reconciliation. Spoke with patient, he states he is not on any medications.
[2023-06-13 13:31] LABS: Bacteria Urine None Seen (None Seen); Hyaline Casts Urine 0-2 /LPF (0-2); RBC Urine >20 /HPF (0-2); Squamous Epithelial Cell Urine 0-2 /HPF (0-2); WBC Urine 0-5 /HPF (0-5)
[2023-06-13] MEDS: Morphine Sulfate 4 MG/ML CARTRIDGE IVPUSH ×3 (13:50→22:33)
[2023-06-13] MEDS: Enoxaparin Sodium 40 MG/0.4 ML SYRINGE SUBCUT (13:52)
--- NOTE | 2023-06-13 13:52 | P.CONGS_ITS ---
History of Present Illness Consult details Consult date: 06/13/23 Narrative: 38M here in the ED because of right scrotal pain and swelling. He says this started 2 days ago. He denies any recent trauma or insect bite. He says the entire scrotal skin appeared swollen yesterday so he tried to drain this himselpf with a needle yesterday which did not reveal any drainage. He continued to have pain and swelling so he came to the ED this morning. HE does have a history of multiple skin infections on his lower abdomen and groin in the past, the latest of which was in April 2023. He had been treated with oral antibiotics. He says he has never had an I and D for these skin infections before. He says he noticed on area of the scrotal skin started to have spontaneous drainage today., Review of Systems 2 Constitutional: Constitutional: Denies chills and Denies fever(s) Cardiovascular: Cardiovascular: Denies chest pain, Denies dyspnea and Denies dyspnea on exertion Respiratory: Respiratory: Denies cough, Denies dyspnea and Denies dyspnea on exertion Gastrointestinal: Gastrointestinal: Denies hematochezia and Denies change in bowel habits Genitourinary: Genitourinary: Denies hematuria and Denies difficulty urinating Musculoskeletal: Musculoskeletal: Denies back pain and Denies limited range of motion Neurologic: Denies focal weakness and Denies convulsions Psychiatric: Psychiatric: Denies depression and Denies mood swings PMFSH Past Medical History Medical History Smoker Kidney stone Family History Family History Paternal Grandmother Lung cancer Surgical History Surgical History Hx of hernia repair History of cystoscopy History of lithotripsy History of incision and drainage Social History Social History Household Members: Family Household Members Other:: 1 Housing: House Are you a primary career services director to a significant other at home: No Do you presently have visiting nurse or other home services: No Alcohol intake: current Alcohol intake frequency: holidays/special occasions only Patient Tobacco Use Status: Current everyday Tobacco user Tobacco use type: Cigarette Cigarette Packs Per Day: 1 Cigarettes Per Day: 10 Years Smoked: 17 e-Cigarette/Vaping Use: Currently Using Second Hand Smoke Exposure: No Substance Use Type: Marijuana service: No 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 Docusate Sodium (Docusate Sodium 100 Mg Capsule) 100 mg PO DAILY PRN PRN Reason: Constipation Enoxaparin Sodium (Enoxaparin Sodium 40 Mg/0.4 Ml Syringe) 40 mg SUBCUT Q24H TAYLER Glucose (Glucose Gel 15 Gm Gel..Gram.) 15 gm PO Q15M PRN; Protocol PRN Reason: per Hypoglycemia Standing Ord. Lactated Ringer's (Lr) 1,000 mls @ 100 mls/hr IVCONT .Q10H TAYLER Piperacillin Sod/Tazobactam (Sod 3.375 gm/ Sodium Chloride) 50 mls @ 100 mls/hr IV Q6H TAYLER Insulin Human Lispro (Insulin Lispro 100 Unit/Ml 3 Ml Vial) 0 unit SUBCUT QIDACHS [facility]; Protocol Melatonin (Melatonin 3 Mg Tablet) 6 mg PO BEDTIME PRN PRN Reason: Insomnia Morphine Sulfate (Morphine Sulfate 4 Mg/Ml Cartridge) 4 mg IVPUSH Q4H PRN; Protocol PRN Reason: Pain, Severe (Pain Scale 7-10) Ondansetron HCl (Ondansetron Hcl 4 Mg/2 Ml Vial) 4 mg IVPUSH Q8H PRN PRN Reason: Nausea and Vomiting Pharmacy Consult (Consult Rx Vancomycin Dosing) 1 each MISCELLANE DAILY PRN PRN Reason: Consult order Sodium Chloride (0.9 % Sodium Chloride Flush 3 Ml Syringe) 3 ml IVFLUSH QSHIFT [facility] Physical Exam 2 Vital Signs: Vital Signs: Last Vital Signs Temp 98.4 F 06/13/23 13:17 Pulse 99 06/13/23 13:17 Resp 15 06/13/23 13:17 BP 132/76 06/13/23 13:14 Pulse Ox 94 06/13/23 13:17 O2 Del Method Nasal Cannula 06/13/23 13:17 O2 Flow Rate 2 06/13/23 13:17 BMI result Body Mass Index 37.3 Const: Other: c/o pain on right scrotal skin General: no acute distress Orientation/consciousness: patient oriented x3 Neck: Neck: Yes no lymphadenopathy Resp: Auscultation: clear to auscultation bilaterally Cardio: Rhythm: regular rhythm GI: Palpation (GI): Soft to palpation, nontender and no guarding : Other: diffuse edema of the right scrotal skin with induration, tenderness, one area with some scanty discharge, no obvious fluctuance or crepitance; no other areas with induration or drainage outside of the scrotum Neuro: General: patient oriented x3 Results Labs 06/16/23 05:36 06/17/23 06:00 Labs: Abnormal lab results 06/13/23 06/13/23 Range/Units 09:45 13:18 RBC 4.13 L (4.60-5.80) X10*6/uL Hct 39.7 L (42.0-52.0) % MCH 34.4 H (27.0-33.0) pg Plt Count 117 L D (160-400) X10*3/uL Immature Gran % (Auto) 0.6 H (0.0-0.4) % Lymph % (Auto) 18.2 L (20-40) % [place] % (Auto) 15.3 H (2-11) % [place] # (Auto) 1.5 H (0.1-1.2) X10*3/uL Abs Immat Gran (auto) 0.06 H (0.00-0.03) X10*3/uL Sodium 131 L (135-145) mmol/L BUN 5 L (9-16) mg/dL Random Glucose 359 H* (60-115) mg/dL Hemoglobin A1c % 10.0 H (<6.0) % Lactic Acid 3.2 H* (0.5-2.0) mmol/L Magnesium 1.5 L (1.6-2.6) mg/dL Total Bilirubin 2.2 H (0.0-1.0) mg/dL AST 175 H (5-37) U/L ALT 135 H (0-40) U/L Alkaline Phosphatase 127 H (39-117) U/L Total Protein 8.6 H (6.5-8.0) g/dL Albumin 3.4 L (3.5-5.0) g/dL Beta-Hydroxybutyrate 0.53 H (0.02-0.27) mmol/L Ur Specific [place] >= 1.030 H (1.005-1.025) Urine Glucose (UA) >=1000 H (Negative) mg/dL Urine Blood Moderate (2+) H (Negative) Urine RBC >20 H (0-2) /HPF Short CBC 06/13/23 Range/Units 09:45 WBC 9.6 (4.8-10.8) X10*3/uL Hgb 14.2 (14.0-18.0) g/dl Hct 39.7 L (42.0-52.0) % Plt Count 117 L D (160-400) X10*3/uL BMP 06/13/23 09:45 Sodium 131 L Potassium 3.8 Chloride 96 Carbon Dioxide 22 BUN 5 L Creatinine 0.71 Calcium 9.0 Liver Function 06/13/23 Range/Units 09:45 Total Bilirubin 2.2 H (0.0-1.0) mg/dL AST 175 H (5-37) U/L ALT 135 H (0-40) U/L Alkaline Phosphatase 127 H (39-117) U/L Albumin 3.4 L (3.5-5.0) g/dL Urine 06/13/23 Range/Units 13:18 Urine Color Dark Yellow Urine Appearance Clear Urine pH 5.5 (5.0-9.0) Ur Specific [place] >= 1.030 H (1.005-1.025) Urine Protein Negative (Neg-Trace) mg/dL Urine Glucose (UA) >=1000 H (Negative) mg/dL All other labs normal. Imaging CT scan - pelvis: report reviewed and image reviewed Assessment and Plan (1) Hidradenitis: Status: Acute e has diffuse fernandez, induration and tenderness of the scrotal kin on the right. He has had multiple skin infections in the past that suggests hidardenitis. I have reviewed his CT scan, and there is no obvious collection in the right scrotum but there is extensive edema and induration of the skin. I would recommend eval as he may need debridement of this area. He has elevated glucose suggestive of undiagnosed diabetes. There is no evidence of a necrotizing process at this time but he may be at risk for this. He has been started on IV abx. I have discussed the above with the Hospitalist service. (2) Diabetes mellitus, new onset: Status: Acute Procedures Date of Service Date of Service: 06/18/23
--- NOTE | 2023-06-13 13:57 | PHA.PROG ---
Admission Date/Time: June 13, 2023 13:17 Indication: skin Weight in k.738 kg Adjusted body weight in K.455 [place] body weight in K.6 Serum Creatinine - Last 168 Hours 06/13/23 09:45 Creatinine 0.71 Estimated CrCl and GFR - Last 168 Hours 06/13/23 09:45 Estim Creat Clear Calc 194.3 Estimated GFR > 60 Vancomycin Loading Dose: 2,000MG Current Vancomycin Dosing Regimen: 1,500MG Q12H Vancomycin Monitoring using AUC goal of 400 - 600 range with trough as surrogate marker: 548 Date and Time for next Vancomycin Level to be drawn: 06/13 @ 21:00 Pharmacist Comments on Vancomycin Plan: Vancomycin dosing will take advantage of [employer] as a clinical decision support tool that uses Bayesian modeling to calculate individual patient's pharmacokinetic parameters and forecast the patient's drug concentration time course with the target goal AUC 24 range of 400 - 600 mg/L/hr.
[2023-06-13] MEDS: Lactated Ringers 1,000 ML 100 ML IVCONT (15:15)
--- NOTE | 2023-06-13 15:24 | PC.NURSE ---
gabby gomez notified pt meets addiction medicine order score. ciwa 0.
[2023-06-13] MEDS: Magnesium Sulfate/H2O 2 GM/50 ML PIGGYBACK IV (15:56)
--- NOTE | 2023-06-13 16:50 | PC.NURSE ---
tiger grp text aware report in, pt ready to go up
[2023-06-13 17:18] LABS: Glucose, Whole Blood 273 mg/dL (60-115)
[2023-06-13] MEDS: Acetaminophen 325 MG TABLET 650 MG PO (17:39)
--- NOTE | 2023-06-13 18:00 | PC.NURSE ---
meal trays not in ED as of pt leaving for floor- rn upstairs aware- stated ok to hold insulin until meal tray arrives- meal tray not arrived yet per upstairs rn either.
[2023-06-13 18:24] LABS: Glucose, Whole Blood 299 mg/dL (60-115)
[2023-06-13] MEDS: Insulin Lispro 100 UNIT/ML 3 ML VIAL SUBCUT ×2 (18:32→21:00)
[2023-06-13 19:55] LABS: Glucose, Whole Blood 359 mg/dL (60-115)
[2023-06-13] MEDS: vancomycin HCL 1,500 MG in 0.9 % Sodium Chloride 500 ML 333.33 MG IV (22:26)
[2023-06-13] MEDS: Melatonin 3 MG TABLET 6 MG PO (23:29)
[2023-06-14] MEDS: Piperacillin Sodium/Tazobactam 3.375 GM in 0.9 % Sodium Chloride 50 ML IV ×4 (03:30→21:49)
[2023-06-14] MEDS: Morphine Sulfate 4 MG/ML CARTRIDGE IVPUSH (03:30)
[2023-06-14] MEDS: Lactated Ringers 1,000 ML 100 ML IVCONT (03:37)
[2023-06-14 03:44] VITALS: BP 131/67; PULSE 99; RESP 16; TEMP 36.8; O2SAT 92
--- NOTE | 2023-06-14 05:30 | PC.NURSE ---
pt was c/o poor pain control with morphine 4mg. pain is 10/10, sharp quality, and scrotum swelling is worse and weeping suprapubic area. applied abd pad. MD notified it. will continue monitor.
[2023-06-14] MEDS: HYDROmorphone HCl 1 MG/ML SYRINGE 0.8 MG IVPUSH (05:58)
[2023-06-14 06:48] LABS: Anion Gap 13 (12-20); Blood Urea Nitrogen 5 mg/dL (9-16); Calcium 8.5 mg/dL (8.4-10.2); Carbon Dioxide 25 mmol/L (22-29); Chloride 97 mmol/L (96-108); Creatinine Clr Calc Pharmacy 200.6; Estimated Glomerular Filt Rate > 60; Glucose Random 229 mg/dL (60-115); Potassium 3.7 mmol/L (3.3-5.1); Sodium 131 mmol/L (135-145)
[2023-06-14 07:05] VITALS: BP 171/79; PULSE 100; RESP 20; TEMP 36.9; O2SAT 93
[2023-06-14 07:30] LABS: Glucose, Whole Blood 227 mg/dL (60-115)
[2023-06-14] MEDS: Insulin Lispro 100 UNIT/ML 3 ML VIAL SUBCUT ×4 (08:02→19:44)
[2023-06-14 08:04] LABS: Hematocrit 38.4 % (42.0-52.0); Hemoglobin 13.4 g/dl (14.0-18.0); Mean Corpuscular HGB Conc 34.9 g/dl (31.0-36.0); Mean Corpuscular Hemoglobin 34.1 pg (27.0-33.0); Mean Corpuscular Volume 97.7 fL (80.0-98.0); Red Blood Count 3.93 X10*6/uL (4.60-5.80); Red Cell Distribution Width 12.6 % (11.0-16.0); White Blood Count 8.6 X10*3/uL (4.8-10.8)
[2023-06-14 08:07] LABS: Alanine Aminotransferase 102 U/L (0-40); Albumin Level 3.1 g/dL (3.5-5.0); Alkaline Phosphatase 107 U/L (39-117); Aspartate Amino Transferase 132 U/L (5-37); Bilirubin Direct 0.9 mg/dL (0.0-0.5); Bilirubin Total 2.3 mg/dL (0.0-1.0); Magnesium 1.6 mg/dL (1.6-2.6); Total Protein 7.7 g/dL (6.5-8.0)
--- NOTE | 2023-06-14 08:21 | PM.UROCN ---
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 Pt reports he was recently treated for a suprapubic cyst that appeared 7-8 months ago. Was painful and occasionally draining but did not seek medical care until last month, he was seen in the ED on 04/26/2023, and was discharged on 14-day course of cephalexin and doxycycline which was completed on 05/10/2023. Two days ago pt noted a similar cyst on his right scrotum that was painful and red. Attempted to drain the cyst with a needle but was unsuccessful. Review of Systems Review of Systems: 10 point review of systems negative other than stated in [facility] Past Medical History Medical History Smoker Kidney stone Family History Family History Paternal Grandmother Lung cancer Surgical History Surgical History Hx of hernia repair History of cystoscopy History of lithotripsy History of incision and drainage Social History Social History Household Members: Family Household Members Other:: 1 Housing: House Are you a primary medicare coordinator to a significant other at home: No Do you presently have visiting nurse or other home services: No Alcohol intake: current Alcohol intake frequency: holidays/special occasions only Patient Tobacco Use Status: Current everyday Tobacco user Tobacco use type: Cigarette Cigarette Packs Per Day: 1 Cigarettes Per Day: 10 Years Smoked: 17 Smoked in Last 30 Days: Yes e-Cigarette/Vaping Use: Currently Using Frequency of e-Cigarette/Vaping Use: occasonally Patient Interested in Nicotine Replacement: No Patient Given Instructions on How to Stop Smoking: Yes Date Education Initiated: 06/13/23 Second Hand Smoke Exposure: No Use of substances other than those prescribed or required for medical reasons: No Substance Use Type: Marijuana Substance Use Frequency: Occasionally Last Used Substance: Weeks (ago) Last Used Substance Other:: 2 wks ago Currently Displaying Signs/Symptoms of Drug Intoxication Withdrawal: No Any prior treatment program specific to substance use: No Have you been hit, kicked, punched, or otherwise hurt by someone within the past year? 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 Docusate Sodium (Docusate Sodium 100 Mg Capsule) 100 mg PO DAILY PRN PRN Reason: Constipation Glucose (Glucose Gel 15 Gm Gel..Gram.) 15 gm PO Q15M PRN; Protocol PRN Reason: per Hypoglycemia Standing Ord. Lactated Ringer's (Lr) 1,000 mls @ 100 mls/hr IVCONT .Q10H [facility] Last Admin: 06/14/23 03:37 Dose: 100 mls/hr Piperacillin Sod/Tazobactam (Sod 3.375 gm/ Sodium Chloride) 50 mls @ 100 mls/hr IV Q6H [facility] Last Infusion: 06/14/23 04:07 Dose: Infused Vancomycin HCl 1,500 mg/ (Sodium Chloride) 500 mls @ 333.333 mls/hr IV Q12H [facility] Last Infusion: 06/14/23 00:16 Dose: Infused Insulin Human Lispro (Insulin Lispro 100 Unit/Ml 3 Ml Vial) 0 unit SUBCUT QIDACHS [facility]; Protocol Last Admin: 06/14/23 08:02 Dose: 4 unit Melatonin (Melatonin 3 Mg Tablet) 6 mg PO BEDTIME PRN PRN Reason: Insomnia Last Admin: 06/13/23 23:29 Dose: 6 mg Morphine Sulfate (Morphine Sulfate 4 Mg/Ml Cartridge) 4 mg IVPUSH Q4H PRN; Protocol PRN Reason: Pain, Severe (Pain Scale 7-10) Last Admin: 06/14/23 03:30 Dose: 4 mg Ondansetron HCl (Ondansetron Hcl 4 Mg/2 Ml Vial) 4 mg IVPUSH Q8H PRN PRN Reason: Nausea and Vomiting Pharmacy Consult (Consult Rx Vancomycin Dosing) 1 each MISCELLANE DAILY PRN PRN Reason: Consult order Sodium Chloride (0.9 % Sodium Chloride Flush 3 Ml Syringe) 3 ml IVFLUSH [facility] Last Admin: 06/14/23 06:58 Dose: Not Given Physical Exam Vital Signs: Vital Signs: Last Vital Signs Temp 98.4 F 06/14/23 07:05 Pulse 100 06/14/23 07:05 Resp 20 06/14/23 07:05 BP 171/79 H 06/14/23 07:05 Pulse Ox 93 06/14/23 07:05 O2 Del Method Room Air 06/14/23 07:05 O2 Flow Rate 2 06/13/23 15:21 BMI result Body Mass Index 37.5 Const: General: healthy appearing, no acute distress and well developed Orientation/consciousness: patient oriented x3 HEENT: Head: Yes normocephalic and Yes atraumatic Eyes: Conjunctivae: conjunctivae normal Neck: Neck: Yes normal visual inspection Chest: Chest palpation & inspection: normal inspection of the chest Resp: Effort & Inspection: normal respiratory effort Cardio: Rate: regular rate GI: Other: Below pannus small open area that is oozing serosanguineous with some purulent drainage Inspection: Yes normal to inspection : Other: Scrotal swelling with erythema and scrotal edema, testicles tender to palpation no obvious abscess palpated Skin: General skin exam: no rashes or lesions noted Neuro: General: patient oriented x3 Extrem: General: No pedal edema Psych: Appearance: grossly normal Affect: normal affect Results Labs 06/16/23 05:36 06/16/23 05:36 Labs: Abnormal lab results 0306/13/23 06/13/23 Range/Units 09:45 13:18 17:14 RBC 4.13 L (4.60-5.80) X10*6/uL Hgb (14.0-18.0) g/dl Hct 39.7 L (42.0-52.0) % MCH 34.4 H (27.0-33.0) pg Plt Count 117 L D (160-400) X10*3/uL Immature Gran % (Auto) 0.6 H (0.0-0.4) % Lymph % (Auto) 18.2 L (20-40) % Sebastian % (Auto) 15.3 H (2-11) % Sebastian # (Auto) 1.5 H (0.1-1.2) X10*3/uL Abs Immat Gran (auto) 0.06 H (0.00-0.03) X10*3/uL Sodium 131 L (135-145) mmol/L BUN 5 L (9-16) mg/dL POC Glucose 273 H (60-115) mg/dL Random Glucose 359 H* (60-115) mg/dL Hemoglobin A1c % 10.0 H (<6.0) % Lactic Acid 3.2 H* (0.5-2.0) mmol/L Magnesium 1.5 L (1.6-2.6) mg/dL Total Bilirubin 2.2 H (0.0-1.0) mg/dL Direct Bilirubin (0.0-0.5) mg/dL AST 175 H (5-37) U/L ALT 135 H (0-40) U/L Alkaline Phosphatase 127 H (39-117) U/L Total Protein 8.6 H (6.5-8.0) g/dL Albumin 3.4 L (3.5-5.0) g/dL Beta-Hydroxybutyrate 0.53 H (0.02-0.27) mmol/L Ur Specific [place] >= 1.030 H (1.005-1.025) Urine Glucose (UA) >=1000 H (Negative) mg/dL Urine Blood Moderate (2+) H (Negative) Urine RBC >20 H (0-2) /HPF 06/13/23 06/13/23 06/14/23 Range/Units 18:15 19:49 05:50 RBC 3.93 L (4.60-5.80) X10*6/uL Hgb 13.4 L (14.0-18.0) g/dl Hct 38.4 L (42.0-52.0) % MCH 34.1 H (27.0-33.0) pg Plt Count (160-400) X10*3/uL Immature Gran % (Auto) (0.0-0.4) % Lymph % (Auto) (20-40) % Sebastian % (Auto) (2-11) % Sebastian # (Auto) (0.1-1.2) X10*3/uL Abs Immat Gran (auto) (0.00-0.03) X10*3/uL Sodium 131 L (135-145) mmol/L BUN 5 L (9-16) mg/dL POC Glucose 299 H 359 H* (60-115) mg/dL Random Glucose 229 H (60-115) mg/dL Hemoglobin A1c % (<6.0) % Lactic Acid (0.5-2.0) mmol/L Magnesium (1.6-2.6) mg/dL Total Bilirubin 2.3 H (0.0-1.0) mg/dL Direct Bilirubin 0.9 H (0.0-0.5) mg/dL AST 132 H (5-37) U/L ALT 102 H (0-40) U/L Alkaline Phosphatase (39-117) U/L Total Protein (6.5-8.0) g/dL Albumin 3.1 L (3.5-5.0) g/dL Beta-Hydroxybutyrate (0.02-0.27) mmol/L Ur Specific [place] (1.005-1.025) Urine Glucose (UA) (Negative) mg/dL Urine Blood (Negative) Urine RBC (0-2) /HPF 06/14/23 Range/Units 07:12 RBC (4.60-5.80) X10*6/uL Hgb (14.0-18.0) g/dl Hct (42.0-52.0) % MCH (27.0-33.0) pg Plt Count (160-400) X10*3/uL Immature Gran % (Auto) (0.0-0.4) % Lymph % (Auto) (20-40) % Sebastian % (Auto) (2-11) % Sebastian # (Auto) (0.1-1.2) X10*3/uL Abs Immat Gran (auto) (0.00-0.03) X10*3/uL Sodium (135-145) mmol/L BUN (9-16) mg/dL POC Glucose 227 H (60-115) mg/dL Random Glucose (60-115) mg/dL Hemoglobin A1c % (<6.0) % Lactic Acid (0.5-2.0) mmol/L Magnesium (1.6-2.6) mg/dL Total Bilirubin (0.0-1.0) mg/dL Direct Bilirubin (0.0-0.5) mg/dL AST (5-37) U/L ALT (0-40) U/L Alkaline Phosphatase (39-117) U/L Total Protein (6.5-8.0) g/dL Albumin (3.5-5.0) g/dL Beta-Hydroxybutyrate (0.02-0.27) mmol/L Ur Specific [place] (1.005-1.025) Urine Glucose (UA) (Negative) mg/dL Urine Blood (Negative) Urine RBC (0-2) /HPF Short CBC 06/13/23 06/14/23 Range/Units 09:45 05:50 WBC 9.6 8.6 (4.8-10.8) X10*3/uL Hgb 14.2 13.4 L (14.0-18.0) g/dl Hct 39.7 L 38.4 L (42.0-52.0) % Plt Count 117 L D (160-400) X10*3/uL BMP 06/13/23 06/14/23 09:45 05:50 Sodium 131 L 131 L Potassium 3.8 3.7 Chloride 96 97 Carbon Dioxide 22 25 BUN 5 L 5 L Creatinine 0.71 0.69 Calcium 9.0 8.5 Liver Function 06/13/23 06/14/23 Range/Units 09:45 05:50 Total Bilirubin 2.2 H 2.3 H (0.0-1.0) mg/dL Direct Bilirubin 0.9 H (0.0-0.5) mg/dL AST 175 H 132 H (5-37) U/L ALT 135 H 102 H (0-40) U/L Alkaline Phosphatase 127 H 107 (39-117) U/L Albumin 3.4 L 3.1 L (3.5-5.0) g/dL Urine 06/13/23 Range/Units 13:18 Urine Color Dark Yellow Urine Appearance Clear Urine pH 5.5 (5.0-9.0) Ur Specific [place] >= 1.030 H (1.005-1.025) Urine Protein Negative (Neg-Trace) mg/dL Urine Glucose (UA) >=1000 H (Negative) mg/dL All other labs normal. Imaging Abdomen CT scan report/results: report reviewed and image reviewed CT scan - pelvis: report reviewed and image reviewed Assessment and Plan (1) Cellulitis of scrotum: Status: Acute (2) Diabetes mellitus, new onset: Status: Acute Plan h/o MRSA No indication of abscess on exam, Scrotal cellulitis on exam noted. Recommend scrotal US Agree with IV abx, piperacillin, vancomycin Procedures Date of Service Date of Service: 06/16/23
--- NOTE | 2023-06-14 08:33 | MHC.RECOVRN ---
Addiction Medicine consult received for possible AUD and remote hx of opioid use. Pt also scored positive on AUDIT-C. Pt declines to meet with [facility]. Please reach out if pt changes his mind and would like to speak with recovery.
[2023-06-14 09:02] LABS: Platelet Count 85 X10*3/uL (160-400)
[2023-06-14 09:03] LABS: Mean Platelet Volume 11.7 fL (9.4-12.4)
--- NOTE | 2023-06-14 09:51 | MHC.CM.PN ---
CM MET WITH PT AT BEDSIDE. 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 PCP DR. DAWKINS. DP: HOME, NO SERVICES ANTICIPATED. PT HAS OWN RIDE HOME. CM WILL CONTINUE TO FOLLOW FOR ANY CHANGE TO DC PLAN/NEEDS
[2023-06-14 10:02] LABS: HBS Num1 > 1000.00 mIU/mL (0-7.99); HBc Num1 0.38 S/CO (0.00-0.79); HBsAGNum1 3.01 S/CO (0.00-0.99); Hepatitis A Antibody IgM 0.16 Index (0-0.79); Hepatitis B Core Antibody Nonreactive (Nonreactive); ~HepC Num1 0.26 S/CO (0.00-0.79); ~Hepatitis A Antibody IgM Nonreactive (Nonreactive); ~Hepatitis B Surface Antibody REACTIVE (Nonreactive); ~Hepatitis C Antibody Nonreactive (Nonreactive)
[2023-06-14] MEDS: HYDROmorphone HCl 0.5 MG/0.5 ML SYRINGE IVPUSH ×4 (10:24→22:34)
--- NOTE | 2023-06-14 10:26 | PM.PNGS ---
Subjective Subjective Date of Service: 06/14/23 Interval history: No events overnight However, he feels that the right scrotal skin is more tender No fever reported Physical Exam Vital Signs: Vital Signs: Last Vital Signs Temp 98.4 F 06/14/23 07:05 Pulse 100 06/14/23 07:05 Resp 20 06/14/23 07:05 BP 171/79 H 06/14/23 07:05 Pulse Ox 93 06/14/23 07:05 O2 Del Method Room Air 06/14/23 07:05 O2 Flow Rate 2 06/13/23 15:21 BMI result Body Mass Index 37.5 Const: General: no acute distress Resp: Effort & Inspection: normal respiratory effort Cardio: Rhythm: regular rhythm GI: Other: Right scrotal skin edematous with some cellulitis, 1 area at the bace with small scanty drainage Objective Data Active Medications Acetaminophen (Acetaminophen 325 Mg Tablet) 650 mg PO Q6H PRN PRN Reason: Pain, Mild (Pain Scale 1-3) Last Admin: 06/13/23 17:39 Dose: 650 mg Documented By: TAYA Benzonatate (Benzonatate 100 Mg Capsule) 100 mg PO TID PRN PRN Reason: Cough Dextrose (Dextrose 50 % 25 Gm/50 Ml Syringe) 25 gm IVPUSH Q15M PRN; Protocol PRN Reason: per Hypoglycemia Standing Ord. Docusate Sodium (Docusate Sodium 100 Mg Capsule) 100 mg PO DAILY PRN PRN Reason: Constipation Glucose (Glucose Gel 15 Gm Gel..Gram.) 15 gm PO Q15M PRN; Protocol PRN Reason: per Hypoglycemia Standing Ord. Hydromorphone HCl (Hydromorphone Hcl 0.5 Mg/0.5 Ml Syringe) 0.5 mg IVPUSH Q3H PRN; Protocol PRN Reason: Pain, Severe (Pain Scale 7-10) Lactated Ringer's (Lr) 1,000 mls @ 100 mls/hr IVCONT .Q10H [facility] Last Admin: 06/14/23 09:58 Dose: Not Given Documented By: LEODAN Non-Admin Reason: fluids paused Piperacillin Sod/Tazobactam (Sod 3.375 gm/ Sodium Chloride) 50 mls @ 100 mls/hr IV Q6H [facility] Last Infusion: 06/14/23 04:07 Dose: Infused Documented By: MARKO Vancomycin HCl 1,500 mg/ (Sodium Chloride) 500 mls @ 333.333 mls/hr IV Q12H [facility] Last Infusion: 06/14/23 00:16 Dose: Infused Documented By: MARKO Insulin Human Lispro (Insulin Lispro 100 Unit/Ml 3 Ml Vial) 0 unit SUBCUT QIDACHS [facility]; Protocol Last Admin: 06/14/23 08:02 Dose: 4 unit Documented By: LEODAN Melatonin (Melatonin 3 Mg Tablet) 6 mg PO BEDTIME PRN PRN Reason: Insomnia Last Admin: 06/13/23 23:29 Dose: 6 mg Documented By: MARKO Ondansetron HCl (Ondansetron Hcl 4 Mg/2 Ml Vial) 4 mg IVPUSH Q8H PRN PRN Reason: Nausea and Vomiting Pharmacy Consult (Consult Rx Vancomycin Dosing) 1 each MISCELLANE DAILY PRN PRN Reason: Consult order Sodium Chloride (0.9 % Sodium Chloride Flush 3 Ml Syringe) [facility] Last Admin: 06/14/23 06:58 Dose: Not Given Documented By: LEODAN Non-Admin Reason: IV Running Labs 06/14/23 05:50 06/14/23 05:50 Labs: Laboratory Results - last 24 hr 06/13/23 06/13/23 06/13/23 09:45 12:24 13:18 MCV MCH MCHC RDW Plt Count 117 L D MPV 11.4 Absolute Nucleated RBC Nucleated RBC % (auto) Hold Purple Top Anion Gap Estim Creat Clear Calc Estimated GFR POC Glucose Random Glucose Estimat Average Glucose 240 Hemoglobin A1c % 10.0 H Lactic Acid F/U @ 2Hr 1.5 Calcium Magnesium Total Bilirubin Direct Bilirubin AST ALT Alkaline Phosphatase Total Protein Albumin Beta-Hydroxybutyrate 0.53 H Urine Color Dark Yellow Urine Appearance Clear Urine pH 5.5 Ur Specific [place] >= 1.030 H Urine Protein Negative Urine Glucose (UA) >=1000 H Urine Ketones Trace Urine Blood Moderate (2+) H Urine Nitrite Negative Ur Leukocyte Esterase Negative Urine RBC >20 H Urine WBC 0-5 Ur Squamous Epith Cells 0-2 Urine Bacteria None Seen Hyaline Casts 0-2 Hep Bs Antigen Influenza Type A (PCR) NEGATIVE Influenza Type B (PCR) NEGATIVE RSV RNA Qual (PCR) NEGATIVE SARS-CoV-2 RNA (RT-PCR) NEGATIVE 06/13/23 06/13/23 06/13/23 14:07 17:14 18:15 MCV MCH MCHC RDW Plt Count MPV Absolute Nucleated RBC Nucleated RBC % (auto) Hold Purple Top Anion Gap Estim Creat Clear Calc Estimated GFR POC Glucose 273 H 299 H Random Glucose Estimat Average Glucose Hemoglobin A1c % Lactic Acid F/U @ 2Hr Calcium Magnesium Total Bilirubin Direct Bilirubin AST ALT Alkaline Phosphatase Total Protein Albumin Beta-Hydroxybutyrate Urine Color Urine Appearance Urine pH Ur Specific [place] Urine Protein Urine Glucose (UA) Urine Ketones Urine Blood Urine Nitrite Ur Leukocyte Esterase Urine RBC Urine WBC Ur Squamous Epith Cells Urine Bacteria Hyaline Casts Hep Bs Antigen Not Reportable Influenza Type A (PCR) Influenza Type B (PCR) RSV RNA Qual (PCR) SARS-CoV-2 RNA (RT-PCR) 06/13/23 06/14/23 06/14/23 19:49 05:50 07:12 MCV 97.7 MCH 34.1 H MCHC 34.9 RDW 12.6 Plt Count 85 L D MPV 11.7 Absolute Nucleated RBC 0.000 Nucleated RBC % (auto) 0.0 Hold Purple Top SEE NOTE Anion Gap 13 Estim Creat Clear Calc 200.6 Estimated GFR > 60 POC Glucose 359 H* 227 H Random Glucose 229 H Estimat Average Glucose Hemoglobin A1c % Lactic Acid F/U @ 2Hr Calcium 8.5 Magnesium 1.6 Total Bilirubin 2.3 H Direct Bilirubin 0.9 H AST 132 H ALT 102 H Alkaline Phosphatase 107 Total Protein 7.7 Albumin 3.1 L Beta-Hydroxybutyrate Urine Color Urine Appearance Urine pH Ur Specific [place] Urine Protein Urine Glucose (UA) Urine Ketones Urine Blood Urine Nitrite Ur Leukocyte Esterase Urine RBC Urine WBC Ur Squamous Epith Cells Urine Bacteria Hyaline Casts Hep Bs Antigen Influenza Type A (PCR) Influenza Type B (PCR) RSV RNA Qual (PCR) SARS-CoV-2 RNA (RT-PCR) Microbiology Microbiology Results: Microbiology 06/13/23 12:20 Gram Stain - Final Groin, Right Routine Culture - Preliminary Culture in progress. Procedures Date of Service Date of Service: 06/14/23 Progress Note: A&P Assessment and plan (1) Cellulitis of scrotum: Status: Acute Assessment and Plan: Seen by urology - IV antibiotics recommended Patient has subjectively feeling more tenderness Recommend urology follow-up Ultrasound also ordered Discussed with hospitalist Time Spent With Patient Time: Total time managing care of this patient today ____ minutes. Quality Stroke Does the patient have a stroke diagnosis?: No VTE Prior VTE?: No VTE Risk Level:: Medical - moderate - high VTE Device Contraindication: Treatment Not Indicated VTE Drug Contraindication: N/A - Med Ordered
[2023-06-14] MEDS: vancomycin HCL 1,500 MG in 0.9 % Sodium Chloride 500 ML 333.33 MG IV ×2 (11:01→22:26)
[2023-06-14 11:20] LABS: Glucose, Whole Blood 216 mg/dL (60-115)
--- NOTE | 2023-06-14 11:39 | P.PNIM_ITS ---
Subjective Subjective Date of Service: 06/14/23 Interval History: seen and examined this morning follow up for scrotal cellulitis/swelling and new onset diabetes reports feeling an increase in swelling and pain of scrotum pain uncontrolled. denies fever or chills Review of Systems Review of Systems: Yes all other systems are reviewed and are negative Constitutional Constitutional: Denies chills and Denies fever(s) Cardiovascular Cardiovascular: Denies chest pain, Denies palpitations and Denies dyspnea Respiratory Respiratory: Denies cough and Denies dyspnea Gastrointestinal Gastrointestinal: Denies abdominal pain, Denies nausea and Denies vomiting Endocrine Endocrine: Denies palpitations Physical Exam 2 Vital Signs: Vital Signs: Last Vital Signs Temp 98.4 F 06/14/23 07:05 Pulse 100 06/14/23 07:05 Resp 20 06/14/23 07:05 BP 171/79 H 06/14/23 07:05 Pulse Ox 93 06/14/23 07:05 O2 Del Method Room Air 06/14/23 07:05 O2 Flow Rate 2 06/13/23 15:21 BMI result Body Mass Index 37.5 Const: General: cooperative, no acute distress, alert and awake Nutritional Appearance: overweight Orientation/consciousness: patient oriented x3 Resp: Effort & Inspection: normal respiratory effort, able to speak in complete sentences, no respiratory distress and no use of accessory muscles A uscultation: clear to auscultation bilaterally Cardio: Rate: regular rate GI: Inspection: No distended Palpation (GI): Soft to palpation and nontender : Other: scrotal swelling and erythema Skin: Other: lower right abdominal wall, there is a small open area draining scant amount of serosanguineous fluid; no palpable fluctuance or induration or evidence of abscess at this location, no surrounding erythema Neuro: General: patient oriented x3, moves all extremities and CN's II-XI intact bilaterally Objective Data Active Medications Acetaminophen (Acetaminophen 325 Mg Tablet) 650 mg PO Q6H PRN PRN Reason: Pain, Mild (Pain Scale 1-3) Last Admin: 06/13/23 17:39 Dose: 650 mg Documented By: TAYA Benzonatate (Benzonatate 100 Mg Capsule) 100 mg PO TID PRN PRN Reason: Cough Dextrose (Dextrose 50 % 25 Gm/50 Ml Syringe) 25 gm IVPUSH Q15M PRN; Protocol PRN Reason: per Hypoglycemia Standing Ord. Docusate Sodium (Docusate Sodium 100 Mg Capsule) 100 mg PO DAILY PRN PRN Reason: Constipation Glucose (Glucose Gel 15 Gm Gel..Gram.) 15 gm PO Q15M PRN; Protocol PRN Reason: per Hypoglycemia Standing Ord. Hydromorphone HCl (Hydromorphone Hcl 0.5 Mg/0.5 Ml Syringe) 0.5 mg IVPUSH Q3H PRN; Protocol PRN Reason: Pain, Severe (Pain Scale 7-10) Last Admin: 06/14/23 10:24 Dose: 0.5 mg Documented By: LEODAN Lactated Ringer's (Lr) 1,000 mls @ 100 mls/hr IVCONT .Q10H [facility] Last Admin: 06/14/23 09:58 Dose: Not Given Documented By: LEODAN Non-Admin Reason: fluids paused Piperacillin Sod/Tazobactam (Sod 3.375 gm/ Sodium Chloride) 50 mls @ 100 mls/hr IV Q6H [facility] Last Infusion: 06/14/23 11:09 Dose: Infused Documented By: LEODAN Vancomycin HCl 1,500 mg/ (Sodium Chloride) 500 mls @ 333.333 mls/hr IV Q12H [facility] Last Admin: 06/14/23 11:01 Dose: 333.33 mls/hr Documented By: LEODAN Insulin Glargine (Insulin Glargine,Hum.Rec.Anlog 100 Unit/Ml 10 Ml Vial) 10 unit SUBCUT DAILY [facility] Insulin Human Lispro (Insulin Lispro 100 Unit/Ml 3 Ml Vial) 0 unit SUBCUT QIDACHS [facility]; Protocol Last Admin: 06/14/23 08:02 Dose: 4 unit Documented By: LEODAN Melatonin (Melatonin 3 Mg Tablet) 6 mg PO BEDTIME PRN PRN Reason: Insomnia Last Admin: 06/13/23 23:29 Dose: 6 mg Documented By: MARKO Ondansetron HCl (Ondansetron Hcl 4 Mg/2 Ml Vial) 4 mg IVPUSH Q8H PRN PRN Reason: Nausea and Vomiting Pharmacy Consult (Consult Rx Vancomycin Dosing) 1 each MISCELLANE DAILY PRN PRN Reason: Consult order Sodium Chloride (0.9 % Sodium Chloride Flush 3 Ml Syringe) 3 ml IVFLUSH QSHIFT [facility] Last Admin: 06/14/23 06:58 Dose: Not Given Documented By: LEODAN Non-Admin Reason: IV Running Labs 06/14/23 05:50 06/14/23 05:50 Labs: Laboratory Results - last 24 hr 06/13/23 06/13/23 06/13/23 09:45 12:24 13:18 MCV MCH MCHC RDW Plt Count MPV Absolute Nucleated RBC Nucleated RBC % (auto) Hold Purple Top Anion Gap Estim Creat Clear Calc Estimated GFR POC Glucose Random Glucose Lactic Acid F/U @ 2Hr 1.5 Calcium Magnesium Total Bilirubin Direct Bilirubin AST ALT Alkaline Phosphatase Total Protein Albumin Beta-Hydroxybutyrate 0.53 H Urine Color Dark Yellow Urine Appearance Clear Urine pH 5.5 Ur Specific [place] >= 1.030 H Urine Protein Negative Urine Glucose (UA) >=1000 H Urine Ketones Trace Urine Blood Moderate (2+) H Urine Nitrite Negative Ur Leukocyte Esterase Negative Urine RBC >20 H Urine WBC 0-5 Ur Squamous Epith Cells 0-2 Urine Bacteria None Seen Hyaline Casts 0-2 Hepatitis A IgM Ab Hep Bs Antigen Hep Bs Antibody Hep B Core Total Ab Hepatitis C Ab (EIA) 06/13/23 06/13/23 06/13/23 14:07 17:14 18:15 MCV MCH MCHC RDW Plt Count MPV Absolute Nucleated RBC Nucleated RBC % (auto) Hold Purple Top Anion Gap Estim Creat Clear Calc Estimated GFR POC Glucose 273 H 299 H Random Glucose Lactic Acid F/U @ 2Hr Calcium Magnesium Total Bilirubin Direct Bilirubin AST ALT Alkaline Phosphatase Total Protein Albumin Beta-Hydroxybutyrate Urine Color Urine Appearance Urine pH Ur Specific [place] Urine Protein Urine Glucose (UA) Urine Ketones Urine Blood Urine Nitrite Ur Leukocyte Esterase Urine RBC Urine WBC Ur Squamous Epith Cells Urine Bacteria Hyaline Casts Hepatitis A IgM Ab Nonreactive Hep Bs Antigen Not Reportable Hep Bs Antibody REACTIVE Hep B Core Total Ab Nonreactive Hepatitis C Ab (EIA) Nonreactive 06/13/23 06/14/23 06/14/23 19:49 05:50 07:12 MCV 97.7 MCH 34.1 H MCHC 34.9 RDW 12.6 Plt Count 85 L D MPV 11.7 Absolute Nucleated RBC 0.000 Nucleated RBC % (auto) 0.0 Hold Purple Top SEE NOTE Anion Gap 13 Estim Creat Clear Calc 200.6 Estimated GFR > 60 POC Glucose 359 H* 227 H Random Glucose 229 H Lactic Acid F/U @ 2Hr Calcium 8.5 Magnesium 1.6 Total Bilirubin 2.3 H Direct Bilirubin 0.9 H AST 132 H ALT 102 H Alkaline Phosphatase 107 Total Protein 7.7 Albumin 3.1 L Beta-Hydroxybutyrate Urine Color Urine Appearance Urine pH Ur Specific [place] Urine Protein Urine Glucose (UA) Urine Ketones Urine Blood Urine Nitrite Ur Leukocyte Esterase Urine RBC Urine WBC Ur Squamous Epith Cells Urine Bacteria Hyaline Casts Hepatitis A IgM Ab Hep Bs Antigen Hep Bs Antibody Hep B Core Total Ab Hepatitis C Ab (EIA) 06/14/23 10:59 MCV MCH MCHC RDW Plt Count MPV Absolute Nucleated RBC Nucleated RBC % (auto) Hold Purple Top Anion Gap Estim Creat Clear Calc Estimated GFR POC Glucose 216 H Random Glucose Lactic Acid F/U @ 2Hr Calcium Magnesium Total Bilirubin Direct Bilirubin AST ALT Alkaline Phosphatase Total Protein Albumin Beta-Hydroxybutyrate Urine Color Urine Appearance Urine pH Ur Specific [place] Urine Protein Urine Glucose (UA) Urine Ketones Urine Blood Urine Nitrite Ur Leukocyte Esterase Urine RBC Urine WBC Ur Squamous Epith Cells Urine Bacteria Hyaline Casts Hepatitis A IgM Ab Hep Bs Antigen Hep Bs Antibody Hep B Core Total Ab Hepatitis C Ab (EIA) Microbiology Microbiology Results: Microbiology 06/13/23 12:20 Gram Stain - Final Groin, Right Routine Culture - Preliminary Culture in progress. 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 who presents to the ED for evaluation of painful and swollen right scrotum x2 days found to have new onset diabetes and scrotal cellulitis Scrotal cellulitis due to uncontrolled diabetes also has history of hidradenitis suppurativa no evidence of abscess on CT of pelvis no evidence of sepsis Continue IV vancomycin and Zosyn, started 06/13/2023 Blood cultures pending seen by urology - recommends scrotal US General surgery following New onset type 2 diabetes Random glucose 359; A1c 10.0 No evidence of DKA continue diabetic diet will start low dose Lantus, titrate prn continue sliding scale and follow POCs closely pseudohyponatremia due to hyperglycemia Hypomagnesemia Magnesium 1.5 on admission, still low, will give additional 2gm IV mag Transaminitis possibly due to fatty liver vs etoh use - pt denies daily use of alcohol LFTs trending down hepatitis screen negative thrombocytopenia ?due to liver disease/etoh vs abx vs acute illness follow platelets closely, if continue to trend down will consider changing abx uncontrolled blood pressure pt has had a few high blood pressure readings possibly due to pain CIWA low, less likely r/t etoh withdrawal will follow bp closely Full Code Attending:?Dr. Price DVT Prophylaxis: Pneumatic boots due to possible surgical procedure Pt requires ongoing inpatient stay due to ?scrotal cellulitis and new onset diabetes type 2 requiring IV antibiotics and specialist evaluation, close monitoring of cellulitis to prevent worsening infection Quality Stroke Does the patient have a stroke diagnosis?: No VTE Prior VTE?: No VTE Risk Level:: Medical - moderate - high VTE Device Contraindication: Treatment Not Indicated VTE Drug Contraindication: N/A - Med Ordered
[2023-06-14 11:44] LABS: HBsAGNum2 Nonreactive; HBsAGNum3 Nonreactive; Hepatitis B Surface Antigen NEGATIVE (Negative)
[2023-06-14] MEDS: Insulin Glargine,Hum.rec.anlog 100 UNIT/ML 10 ML VIAL 10 UNIT SUBCUT (12:16)
[2023-06-14] MEDS: Magnesium Sulfate/H2O 2 GM/50 ML PIGGYBACK IV (14:19)
[2023-06-14 15:16] VITALS: BP 174/79; PULSE 99; RESP 20; TEMP 36.7; O2SAT 93
[2023-06-14 16:21] LABS: Glucose, Whole Blood 242 mg/dL (60-115)
[2023-06-14] MEDS: Acetaminophen 325 MG TABLET 650 MG PO (19:34)
[2023-06-14 19:39] VITALS: BP 144/71; PULSE 95; RESP 16; RESP 18; TEMP 36.7; O2SAT 95
[2023-06-14 20:13] LABS: Glucose, Whole Blood 226 mg/dL (60-115)
[2023-06-14] MEDS: Ketorolac Tromethamine 30 MG/ML VIAL IVPUSH (20:53)
[2023-06-14 21:18] LABS: Vancomycin Random 5.1 mcg/mL (15-20)
--- NOTE | 2023-06-14 21:35 | HE.PHANOTE ---
RE: VANCO DOSING Trough came back as 5.1, will increase frequency to 1500 mg q8h. Next random is scheduled for 06/14 @1300.
[2023-06-14 22:34] VITALS: RESP 16
[2023-06-15] MEDS: HYDROmorphone HCl 1 MG/ML SYRINGE 0.8 MG IVPUSH ×6 (00:46→23:52)
[2023-06-15 00:50] VITALS: BP 158/74; PULSE 87; RESP 16; TEMP 36.6; O2SAT 94
[2023-06-15 03:05] VITALS: BP 143/79; PULSE 93; RESP 16; TEMP 36.7; O2SAT 96
[2023-06-15] MEDS: Ibuprofen 600 MG TABLET PO ×2 (03:11→12:16)
[2023-06-15] MEDS: Piperacillin Sodium/Tazobactam 3.375 GM in 0.9 % Sodium Chloride 50 ML IV ×4 (03:32→21:23)
[2023-06-15 06:00] LABS: Hemoglobin 13.1 g/dl (14.0-18.0); Imm Gran Abs Auto 0.03 X10*3/uL (0.00-0.03); Imm Gran Pct Auto 0.4 % (0.0-0.4); Lymphocytes Percent Auto 20.2 % (20-40); PLT CLUMP 1; Red Cell Distribution Width 12.4 % (11.0-16.0); SCAN SMEAR FLAG 1
[2023-06-15 06:02] LABS: Basophils Absolute Auto 0.1 X10*3/uL (0.0-0.2); Basophils Percent Auto 0.8 % (0-2); Eosinophils Absolute Auto 0.2 X10*3/uL (0.0-0.4); Eosinophils Percent Auto 2.7 % (0-4); Hematocrit 38.3 % (42.0-52.0); Lymphocytes Absolute Auto 1.5 X10*3/uL (1.2-4.9); Mean Corpuscular HGB Conc 34.2 g/dl (31.0-36.0); Mean Corpuscular Hemoglobin 33.7 pg (27.0-33.0); Mean Corpuscular Volume 98.5 fL (80.0-98.0); Mean Platelet Volume 10.6 fL (9.4-12.4); Monocytes Absolute Auto 1.1 X10*3/uL (0.1-1.2); Monocytes Percent Auto 14.6 % (2-11); Neutrophils Absolute Auto 4.5 x10*3/uL (2.0-8.3); Neutrophils Percent Auto 61.3 % (45-73); Red Blood Count 3.89 X10*6/uL (4.60-5.80)
[2023-06-15 06:03] LABS: MANUAL DIFF FLAG NO; Platelet Count 85 X10*3/uL (160-400); White Blood Count 7.3 X10*3/uL (4.8-10.8)
[2023-06-15 06:29] LABS: Alanine Aminotransferase 82 U/L (0-40); Albumin Level 2.9 g/dL (3.5-5.0); Alkaline Phosphatase 96 U/L (39-117); Anion Gap 10 (12-20); Aspartate Amino Transferase 109 U/L (5-37); Bilirubin Direct 0.9 mg/dL (0.0-0.5); Bilirubin Total 1.8 mg/dL (0.0-1.0); Blood Urea Nitrogen 8 mg/dL (9-16); Calcium 8.5 mg/dL (8.4-10.2); Carbon Dioxide 30 mmol/L (22-29); Chloride 100 mmol/L (96-108); Creatinine Clr Calc Pharmacy 182.1; Estimated Glomerular Filt Rate > 60; Glucose Random 180 mg/dL (60-115); Magnesium 1.9 mg/dL (1.6-2.6); Potassium 3.4 mmol/L (3.3-5.1); Sodium 137 mmol/L (135-145); Total Protein 7.3 g/dL (6.5-8.0)
[2023-06-15 07:20] VITALS: BP 142/69; PULSE 87; RESP 18; TEMP 36.7; O2SAT 94
[2023-06-15 07:33] LABS: Glucose, Whole Blood 169 mg/dL (60-115)
[2023-06-15] MEDS: Insulin Lispro 100 UNIT/ML 3 ML VIAL SUBCUT ×2 (08:20→12:16)
[2023-06-15] MEDS: Insulin Glargine,Hum.rec.anlog 100 UNIT/ML 10 ML VIAL 10 UNIT SUBCUT (08:20)
[2023-06-15] MEDS: vancomycin HCL 1,500 MG in 0.9 % Sodium Chloride 500 ML 333.33 MG IV ×2 (08:21→15:08)
[2023-06-15] MEDS: 0.9 % Sodium Chloride Flush 3 ML SYRINGE IVFLUSH ×2 (08:21→16:53)
[2023-06-15 11:18] LABS: Glucose, Whole Blood 159 mg/dL (60-115)
--- NOTE | 2023-06-15 12:04 | P.PNIM_ITS ---
Subjective Subjective Date of Service: 06/15/23 Interval History: seen and examined this morning follow up for scrotal cellulitis, new DM still with scrotal swelling and pain no fever Review of Systems Review of Systems: Yes all other systems are reviewed and are negative Constitutional Constitutional: Denies chills and Denies fever(s) Cardiovascular Cardiovascular: Denies chest pain Gastrointestinal Gastrointestinal: Denies abdominal pain Physical Exam 2 Vital Signs: Vital Signs: Last Vital Signs Temp 98.1 F 06/15/23 07:20 Pulse 87 06/15/23 07:20 Resp 18 06/15/23 07:20 BP 142/69 H 06/15/23 07:20 Pulse Ox 94 06/15/23 07:20 O2 Del Method Room Air 06/15/23 07:20 O2 Flow Rate 2 06/13/23 15:21 BMI result Body Mass Index 37.5 Const: General: cooperative, no acute distress, alert and awake Nutritional Appearance: overweight Orientation/consciousness: patient oriented x3 Resp: Effort & Inspection: normal respiratory effort, able to speak in complete sentences, no respiratory distress and no use of accessory muscles A uscultation: clear to auscultation bilaterally Cardio: Rate: regular rate GI: Inspection: No distended Palpation (GI): Soft to palpation and nontender : Other: scrotal swelling and erythema Skin: Other: lower right abdominal wall, there is a small open area draining scant amount of serosanguineous fluid; no palpable fluctuance or induration or evidence of abscess at this location, no surrounding erythema Neuro: General: patient oriented x3, moves all extremities and CN's II-XI intact bilaterally Objective Data Active Medications Acetaminophen (Acetaminophen 325 Mg Tablet) 650 mg PO Q6H PRN PRN Reason: Pain, Mild (Pain Scale 1-3) Last Admin: 06/14/23 19:34 Dose: 650 mg Documented By: REMBERTO Benzonatate (Benzonatate 100 Mg Capsule) 100 mg PO TID PRN PRN Reason: Cough Dextrose (Dextrose 50 % 25 Gm/50 Ml Syringe) 25 gm IVPUSH Q15M PRN; Protocol PRN Reason: per Hypoglycemia Standing Ord. Docusate Sodium (Docusate Sodium 100 Mg Capsule) 100 mg PO DAILY PRN PRN Reason: Constipation Glucose (Glucose Gel 15 Gm Gel..Gram.) 15 gm PO Q15M PRN; Protocol PRN Reason: per Hypoglycemia Standing Ord. Hydromorphone HCl (Hydromorphone Hcl 1 Mg/Ml Syringe) 0.8 mg IVPUSH Q4H PRN; Protocol PRN Reason: Pain, Severe (Pain Scale 7-10) Last Admin: 06/15/23 09:42 Dose: 0.8 mg Documented By: DARWIN Piperacillin Sod/Tazobactam (Sod 3.375 gm/ Sodium Chloride) 50 mls @ 100 mls/hr IV Q6H [facility] Last Infusion: 06/15/23 10:17 Dose: Infused Documented By: DARWIN Vancomycin HCl 1,500 mg/ (Sodium Chloride) 500 mls @ 333.333 mls/hr IV Q8H [facility] Last Infusion: 06/15/23 09:52 Dose: Infused Documented By: DARWIN Ibuprofen (Ibuprofen 600 Mg Tablet) 600 mg PO Q8H [facility] Last Admin: 06/15/23 03:11 Dose: 600 mg Documented By: KIM Insulin Glargine (Insulin Glargine,Hum.Rec.Anlog 100 Unit/Ml 10 Ml Vial) 10 unit SUBCUT DAILY [facility] Last Admin: 06/15/23 08:20 Dose: 10 unit Documented By: DARWIN Insulin Human Lispro (Insulin Lispro 100 Unit/Ml 3 Ml Vial) 0 unit SUBCUT QIDACHS [facility]; Protocol Last Admin: 06/15/23 08:20 Dose: 2 unit Documented By: DARWIN Melatonin (Melatonin 3 Mg Tablet) 6 mg PO BEDTIME PRN PRN Reason: Insomnia Last Admin: 06/13/23 23:29 Dose: 6 mg Documented By: MARKO Ondansetron HCl (Ondansetron Hcl 4 Mg/2 Ml Vial) 4 mg IVPUSH Q8H PRN PRN Reason: Nausea and Vomiting Pharmacy Consult (Consult Rx Vancomycin Dosing) 1 each MISCELLANE DAILY PRN PRN Reason: Consult order Sodium Chloride (0.9 % Sodium Chloride Flush 3 Ml Syringe) [facility] Last Admin: 06/15/23 08:21 Dose: 3 ml Documented By: DARWIN Labs 06/15/23 05:33 06/15/23 05:33 Labs: Laboratory Results - last 24 hr 06/14/23 06/14/23 06/14/23 16:02 19:42 20:59 MCV MCH MCHC RDW Plt Count MPV Immature Gran % (Auto) Neut % (Auto) Lymph % (Auto) [place] % (Auto) Eos % (Auto) Baso % (Auto) Lymph # (Auto) [place] # (Auto) Eos # (Auto) Baso # (Auto) Abs Immat Gran (auto) Absolute Neuts (auto) Absolute Nucleated RBC Nucleated RBC % (auto) Anion Gap Estim Creat Clear Calc Estimated GFR POC Glucose 242 H 226 H Random Glucose Calcium Magnesium Total Bilirubin Direct Bilirubin AST ALT Alkaline Phosphatase Total Protein Albumin Random Vancomycin 5.1 L 06/15/23 06/15/23 06/15/23 05:33 07:22 11:12 MCV 98.5 H MCH 33.7 H MCHC 34.2 RDW 12.4 Plt Count 85 L MPV 10.6 Immature Gran % (Auto) 0.4 Neut % (Auto) 61.3 Lymph % (Auto) 20.2 [place] % (Auto) 14.6 H Eos % (Auto) 2.7 Baso % (Auto) 0.8 Lymph # (Auto) 1.5 [place] # (Auto) 1.1 Eos # (Auto) 0.2 Baso # (Auto) 0.1 Abs Immat Gran (auto) 0.03 Absolute Neuts (auto) 4.5 Absolute Nucleated RBC 0.000 Nucleated RBC % (auto) 0.0 Anion Gap 10 L Estim Creat Clear Calc 182.1 Estimated GFR > 60 POC Glucose 169 H 159 H Random Glucose 180 H Calcium 8.5 Magnesium 1.9 Total Bilirubin 1.8 H Direct Bilirubin 0.9 H AST 109 H ALT 82 H Alkaline Phosphatase 96 Total Protein 7.3 Albumin 2.9 L Random Vancomycin Microbiology Microbiology Results: Microbiology 06/13/23 09:45 Blood Culture - Preliminary Blood - Venous No growth after 48 hours. 06/13/23 09:45 Blood Culture - Preliminary Blood - Venous No growth after 48 hours. 06/13/23 12:20 Gram Stain - Final Groin, Right Routine Culture - Preliminary Culture in progress. 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 who presents to the ED for evaluation of painful and swollen right scrotum x2 days found to have new onset diabetes and scrotal cellulitis Scrotal cellulitis due to uncontrolled diabetes also has history of hidradenitis suppurativa no evidence of abscess on CT of pelvis no evidence of sepsis Continue IV vancomycin and Zosyn, started 06/13/2023 Blood cultures negative to date seen by urology - recommends scrotal US - showing scrotal wall thickening no fluid collection, small right hydrocele; microlithiasis associated with right testicle General surgery following New onset type 2 diabetes A1c 10.0 blood sugar improving continue diabetic diet continue Lantus, titrate prn continue sliding scale and follow POCs closely pseudohyponatremia due to hyperglycemia. resolved Hypomagnesemia improved with replacement Transaminitis possibly due to fatty liver vs etoh use - pt denies daily use of alcohol LFTs trending down hepatitis screen negative thrombocytopenia ?due to liver disease/etoh vs abx vs acute illness follow CBC uncontrolled blood pressure pt has had a few high blood pressure readings possibly due to pain CIWA low, less likely r/t etoh withdrawal will follow bp closely Full Code Attending:?Dr. Arauz DVT Prophylaxis: Pneumatic boots Pt requires ongoing inpatient stay due to ?scrotal cellulitis and new onset diabetes type 2 requiring IV antibiotics and specialist evaluation, close monitoring of cellulitis to prevent worsening infection Quality Stroke Does the patient have a stroke diagnosis?: No VTE Prior VTE?: No VTE Risk Level:: Medical - moderate - high VTE Device Contraindication: Treatment Not Indicated VTE Drug Contraindication: N/A - Med Ordered
[2023-06-15 13:47] LABS: Vancomycin Random 14.3 mcg/mL (15-20)
--- NOTE | 2023-06-15 14:38 | P.PNUR_ITS ---
Subjective Subjective Date of Service: 06/15/23 Interval history: slow resolving Physical Exam 2 Vital Signs: Vital Signs: Last Vital Signs Temp 98.1 F 06/15/23 07:20 Pulse 87 06/15/23 07:20 Resp 18 06/15/23 07:20 BP 142/69 H 06/15/23 07:20 Pulse Ox 94 06/15/23 07:20 O2 Del Method Room Air 06/15/23 07:20 O2 Flow Rate 2 06/13/23 15:21 BMI result Body Mass Index 37.5 Const: General: cooperative, healthy appearing, comfortable and no acute distress Orientation/consciousness: patient oriented x3 HEENT: Face and sinus: Yes normal facial exam Mouth: moist mucous membranes Neck: Neck: Yes normal visual inspection, Yes full ROM and Yes trachea midline Chest: Chest palpation & inspection: normal inspection of the chest Resp: Effort & Inspection: normal respiratory effort, able to speak in complete sentences and no respiratory distress GI: Inspection: Yes normal to inspection Back/Spine/Pelvis: Cervical Spine: normal cervical lordosis Thoracic/Lumbar Spine: thoracic and lumbar spine normal to inspection Skin: General skin exam: no rashes or lesions noted Neuro: General: patient oriented x3, tone normal and moves all extremities Extrem: General: Yes normal to inspection and Yes capillary refill normal Urology Results Labs 06/15/23 05:33 06/15/23 05:33 Labs: Laboratory Results - last 24 hr 06/14/23 06/14/23 06/14/23 16:02 19:42 20:59 WBC RBC Hgb Hct MCV MCH MCHC RDW Plt Count MPV Immature Gran % (Auto) Neut % (Auto) Lymph % (Auto) [place] % (Auto) Eos % (Auto) Baso % (Auto) Lymph # (Auto) [place] # (Auto) Eos # (Auto) Baso # (Auto) Abs Immat Gran (auto) Absolute Neuts (auto) Absolute Nucleated RBC Nucleated RBC % (auto) Sodium Potassium Chloride Carbon Dioxide Anion Gap BUN Creatinine Estim Creat Clear Calc Estimated GFR POC Glucose 242 H 226 H Random Glucose Calcium Magnesium Total Bilirubin Direct Bilirubin AST ALT Alkaline Phosphatase Total Protein Albumin Random Vancomycin 5.1 L 06/15/23 06/15/23 06/15/23 05:33 07:22 11:12 WBC 7.3 RBC 3.89 L Hgb 13.1 L Hct 38.3 L MCV 98.5 H MCH 33.7 H MCHC 34.2 RDW 12.4 Plt Count 85 L MPV 10.6 Immature Gran % (Auto) 0.4 Neut % (Auto) 61.3 Lymph % (Auto) 20.2 [place] % (Auto) 14.6 H Eos % (Auto) 2.7 Baso % (Auto) 0.8 Lymph # (Auto) 1.5 [place] # (Auto) 1.1 Eos # (Auto) 0.2 Baso # (Auto) 0.1 Abs Immat Gran (auto) 0.03 Absolute Neuts (auto) 4.5 Absolute Nucleated RBC 0.000 Nucleated RBC % (auto) 0.0 Sodium 137 Potassium 3.4 Chloride 100 Carbon Dioxide 30 H Anion Gap 10 L BUN 8 L Creatinine 0.76 Estim Creat Clear Calc 182.1 Estimated GFR > 60 POC Glucose 169 H 159 H Random Glucose 180 H Calcium 8.5 Magnesium 1.9 Total Bilirubin 1.8 H Direct Bilirubin 0.9 H AST 109 H ALT 82 H Alkaline Phosphatase 96 Total Protein 7.3 Albumin 2.9 L Random Vancomycin 06/15/23 13:16 WBC RBC Hgb Hct MCV MCH MCHC RDW Plt Count MPV Immature Gran % (Auto) Neut % (Auto) Lymph % (Auto) [place] % (Auto) Eos % (Auto) Baso % (Auto) Lymph # (Auto) [place] # (Auto) Eos # (Auto) Baso # (Auto) Abs Immat Gran (auto) Absolute Neuts (auto) Absolute Nucleated RBC Nucleated RBC % (auto) Sodium Potassium Chloride Carbon Dioxide Anion Gap BUN Creatinine Estim Creat Clear Calc Estimated GFR POC Glucose Random Glucose Calcium Magnesium Total Bilirubin Direct Bilirubin AST ALT Alkaline Phosphatase Total Protein Albumin Random Vancomycin 14.3 L Progress Note: A&P Assessment and plan (1) Diabetes mellitus, new onset: Status: Acute (2) Cellulitis of scrotum: Status: Acute Plan elevation Time Spent With Patient Time: Total time managing care of this patient today ____ minutes. Progress Note: Quality Stroke Does the patient have a stroke diagnosis?: No
[2023-06-15 15:37] VITALS: BP 137/62; PULSE 88; RESP 18; TEMP 36.4; O2SAT 96
[2023-06-15 16:28] LABS: Glucose, Whole Blood 148 mg/dL (60-115)
[2023-06-15] MEDS: Furosemide 40 MG TABLET PO (16:53)
[2023-06-15] MEDS: oxyCODONE HCl Immed Release 5 MG TABLET PO (16:53)
[2023-06-15 19:44] VITALS: BP 107/51; PULSE 95; RESP 16; TEMP 36.3; O2SAT 94
[2023-06-15] MEDS: Ketorolac Tromethamine 30 MG/ML VIAL IVPUSH (20:07)
[2023-06-15 20:12] LABS: Glucose, Whole Blood 117 mg/dL (60-115)
[2023-06-15 23:55] VITALS: BP 135/93; PULSE 92
[2023-06-16] VITALS (7 sets, daily range): BP systolic 125–150; BP diastolic 60–87; PULSE 70–94; RESP 16–20; TEMP 36.2–36.6; O2SAT 92–97
[2023-06-16] MEDS: oxyCODONE HCl Immed Release 5 MG TABLET PO ×4 (00:23→20:32)
[2023-06-16] MEDS: vancomycin HCL 1,500 MG in 0.9 % Sodium Chloride 500 ML 333.33 MG IV ×2 (00:23→07:44)
[2023-06-16] MEDS: 0.9 % Sodium Chloride Flush 3 ML SYRINGE IVFLUSH ×4 (01:21→19:45)
[2023-06-16] MEDS: Piperacillin Sodium/Tazobactam 3.375 GM in 0.9 % Sodium Chloride 50 ML IV ×4 (05:06→21:19)
[2023-06-16] MEDS: HYDROmorphone HCl 1 MG/ML SYRINGE 0.8 MG IVPUSH ×5 (05:11→22:33)
[2023-06-16 06:19] LABS: MANUAL DIFF FLAG NO
[2023-06-16 06:45] LABS: Basophils Absolute Auto 0.1 X10*3/uL (0.0-0.2); Basophils Percent Auto 0.9 % (0-2); Eosinophils Absolute Auto 0.3 X10*3/uL (0.0-0.4); Eosinophils Percent Auto 3.3 % (0-4); Hematocrit 39.2 % (42.0-52.0); Hemoglobin 13.3 g/dl (14.0-18.0); Imm Gran Abs Auto 0.06 X10*3/uL (0.00-0.03); Imm Gran Pct Auto 0.8 % (0.0-0.4); Lymphocytes Absolute Auto 1.9 X10*3/uL (1.2-4.9); Lymphocytes Percent Auto 25.3 % (20-40); Mean Corpuscular HGB Conc 33.9 g/dl (31.0-36.0); Mean Corpuscular Hemoglobin 33.8 pg (27.0-33.0); Mean Corpuscular Volume 99.5 fL (80.0-98.0); Mean Platelet Volume 11.8 fL (9.4-12.4); Monocytes Absolute Auto 1.2 X10*3/uL (0.1-1.2); Monocytes Percent Auto 15.2 % (2-11); Neutrophils Absolute Auto 4.2 x10*3/uL (2.0-8.3); Neutrophils Percent Auto 54.5 % (45-73); Platelet Count 109 X10*3/uL (160-400); Red Blood Count 3.94 X10*6/uL (4.60-5.80); Red Cell Distribution Width 12.3 % (11.0-16.0); White Blood Count 7.7 X10*3/uL (4.8-10.8)
[2023-06-16 06:51] LABS: Anion Gap 12 (12-20); Blood Urea Nitrogen 9 mg/dL (9-16); Calcium 8.6 mg/dL (8.4-10.2); Carbon Dioxide 27 mmol/L (22-29); Chloride 101 mmol/L (96-108); Creatinine Clr Calc Pharmacy 122.5; Estimated Glomerular Filt Rate > 60; Glucose Random 94 mg/dL (60-115); Potassium 3.4 mmol/L (3.3-5.1); Sodium 137 mmol/L (135-145)
[2023-06-16 07:33] LABS: Glucose, Whole Blood 110 mg/dL (60-115)
[2023-06-16] MEDS: Insulin Glargine,Hum.rec.anlog 100 UNIT/ML 10 ML VIAL 10 UNIT SUBCUT (07:45)
[2023-06-16 11:12] LABS: Glucose, Whole Blood 181 mg/dL (60-115)
[2023-06-16] MEDS: Acetaminophen 325 MG TABLET 650 MG PO (12:01)
[2023-06-16] MEDS: Insulin Lispro 100 UNIT/ML 3 ML VIAL SUBCUT (12:01)
--- NOTE | 2023-06-16 13:25 | P.PNIM_ITS ---
Subjective Subjective Date of Service: 06/16/23 Interval History: seen and examined this morning follow up for scrotal swelling and pain feels like swelling is worse Review of Systems Review of Systems: Yes all other systems are reviewed and are negative Constitutional Constitutional: Denies chills and Denies fever(s) Gastrointestinal Gastrointestinal: Denies abdominal pain, Denies nausea and Denies vomiting Physical Exam 2 Vital Signs: Vital Signs: Last Vital Signs Temp 97.6 F 06/16/23 07:24 Pulse 83 06/16/23 07:24 Resp 20 06/16/23 07:24 BP 150/69 H 06/16/23 07:24 Pulse Ox 92 06/16/23 07:24 O2 Del Method Room Air 06/16/23 07:24 O2 Flow Rate 2 06/13/23 15:21 BMI result Body Mass Index 37.5 Const: General: cooperative, no acute distress, alert and awake Nutritional Appearance: overweight Orientation/consciousness: patient oriented x3 Resp: Effort & Inspection: normal respiratory effort, able to speak in complete sentences, no respiratory distress and no use of accessory muscles A uscultation: clear to auscultation bilaterally Cardio: Rate: regular rate GI: Inspection: No distended Palpation (GI): Soft to palpation and nontender : Other: scrotal swelling and erythema Skin: Other: lower right abdominal wall, there is a small open area draining scant amount of serosanguineous fluid; no palpable fluctuance or induration or evidence of abscess at this location, no surrounding erythema Neuro: General: patient oriented x3, moves all extremities and CN's II-XI intact bilaterally Objective Data Active Medications Acetaminophen (Acetaminophen 325 Mg Tablet) 650 mg PO Q6H PRN PRN Reason: Pain, Mild (Pain Scale 1-3) Last Admin: 06/16/23 12:01 Dose: 650 mg Documented By: DARWIN Benzonatate (Benzonatate 100 Mg Capsule) 100 mg PO TID PRN PRN Reason: Cough Dextrose (Dextrose 50 % 25 Gm/50 Ml Syringe) 25 gm IVPUSH Q15M PRN; Protocol PRN Reason: per Hypoglycemia Standing Ord. Docusate Sodium (Docusate Sodium 100 Mg Capsule) 100 mg PO DAILY PRN PRN Reason: Constipation Glucose (Glucose Gel 15 Gm Gel..Gram.) 15 gm PO Q15M PRN; Protocol PRN Reason: per Hypoglycemia Standing Ord. Hydromorphone HCl (Hydromorphone Hcl 1 Mg/Ml Syringe) 0.8 mg IVPUSH Q4H PRN; Protocol PRN Reason: Pain, Severe (Pain Scale 7-10) Last Admin: 06/16/23 10:10 Dose: 0.8 mg Documented By: DARWIN Piperacillin Sod/Tazobactam (Sod 3.375 gm/ Sodium Chloride) 50 mls @ 100 mls/hr IV Q6H [facility] Last Infusion: 06/16/23 09:59 Dose: Infused Documented By: DARWIN Vancomycin HCl 1,500 mg/ (Sodium Chloride) 500 mls @ 333.333 mls/hr IV Q8H [facility] Last Infusion: 06/16/23 09:33 Dose: Infused Documented By: DARWIN Insulin Glargine (Insulin Glargine,Hum.Rec.Anlog 100 Unit/Ml 10 Ml Vial) 10 unit SUBCUT DAILY [facility] Last Admin: 06/16/23 07:45 Dose: 10 unit Documented By: DARWIN Insulin Human Lispro (Insulin Lispro 100 Unit/Ml 3 Ml Vial) 0 unit SUBCUT QIDACHS [facility]; Protocol Last Admin: 06/16/23 12:01 Dose: 2 unit Documented By: ADRWIN Melatonin (Melatonin 3 Mg Tablet) 6 mg PO BEDTIME PRN PRN Reason: Insomnia Last Admin: 06/13/23 23:29 Dose: 6 mg Documented By: MARKO Ondansetron HCl (Ondansetron Hcl 4 Mg/2 Ml Vial) 4 mg IVPUSH Q8H PRN PRN Reason: Nausea and Vomiting Oxycodone HCl (Oxycodone Hcl Immed Release 5 Mg Tablet) 5 mg PO Q6H PRN PRN Reason: Pain, Moderate(Pain Scale 4-6) Last Admin: 06/16/23 08:33 Dose: 5 mg Documented By: DARWIN Pharmacy Consult (Consult Rx Vancomycin Dosing) 1 each MISCELLANE DAILY PRN PRN Reason: Consult order Sodium Chloride (0.9 % Sodium Chloride Flush 3 Ml Syringe) 3 ml IVFLUSH [facility] Last Admin: 06/16/23 07:51 Dose: 3 ml Documented By: DARWIN Labs 06/16/23 05:36 06/16/23 05:36 Labs: Laboratory Results - last 24 hr 06/15/23 06/15/23 06/15/23 13:16 16:21 19:45 MCV MCH MCHC RDW Plt Count MPV Immature Gran % (Auto) Neut % (Auto) Lymph % (Auto) Mcmullen % (Auto) Eos % (Auto) Baso % (Auto) Lymph # (Auto) Mcmullen # (Auto) Eos # (Auto) Baso # (Auto) Abs Immat Gran (auto) Absolute Neuts (auto) Absolute Nucleated RBC Nucleated RBC % (auto) Anion Gap Estim Creat Clear Calc Estimated GFR POC Glucose 148 H 117 H Random Glucose Calcium Random Vancomycin 14.3 L 06/16/23 06/16/23 06/16/23 05:36 07:10 11:03 MCV 99.5 H MCH 33.8 H MCHC 33.9 RDW 12.3 Plt Count 109 L D MPV 11.8 Immature Gran % (Auto) 0.8 H Neut % (Auto) 54.5 Lymph % (Auto) 25.3 Mcmullen % (Auto) 15.2 H Eos % (Auto) 3.3 Baso % (Auto) 0.9 Lymph # (Auto) 1.9 Mcmullen # (Auto) 1.2 Eos # (Auto) 0.3 Baso # (Auto) 0.1 Abs Immat Gran (auto) 0.06 H Absolute Neuts (auto) 4.2 Absolute Nucleated RBC 0.000 Nucleated RBC % (auto) 0.0 Anion Gap 12 Estim Creat Clear Calc 122.5 Estimated GFR > 60 POC Glucose 110 181 H Random Glucose 94 Calcium 8.6 Random Vancomycin Microbiology Microbiology Results: Microbiology 06/13/23 12:20 Gram Stain - Final Groin, Right Routine Culture - Final Strep agalactiae (Grp B) 06/13/23 09:45 Blood Culture - Preliminary Blood - Venous No growth after 48 hours. 06/13/23 09:45 Blood Culture - Preliminary Blood - Venous No growth after 48 hours. 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 who presents to the ED for evaluation of painful and swollen right scrotum x2 days found to have new onset diabetes and scrotal cellulitis Scrotal cellulitis due to uncontrolled diabetes also has history of hidradenitis suppurativa no evidence of abscess on CT of pelvis no evidence of sepsis Continue IV vancomycin and Zosyn, started 06/13/2023 Blood cultures negative to date scrotal US - showing scrotal wall thickening no fluid collection, small right hydrocele; microlithiasis associated with right testicle urology following - will re-evaluate today General surgery following New onset type 2 diabetes A1c 10.0 blood sugars improving continue diabetic diet continue Lantus, titrate prn continue sliding scale and follow POCs closely WHIT encourage po intake will hold off on IVF for now to prevent increase in scrotal swelling follow renal function pseudohyponatremia due to hyperglycemia. resolved Hypomagnesemia improved with replacement Transaminitis possibly due to fatty liver vs etoh use - pt denies daily use of alcohol LFTs trending down hepatitis screen negative thrombocytopenia ?due to liver disease/etoh vs abx vs acute illness platelets stable uncontrolled blood pressure pt has had a few high blood pressure readings possibly due to pain CIWA low, less likely r/t etoh withdrawal will follow bp closely Full Code Attending:?Dr. Arauz DVT Prophylaxis: Pneumatic boots Pt requires ongoing inpatient stay due to ?scrotal cellulitis and new onset diabetes type 2 requiring IV antibiotics and specialist evaluation, close monitoring of cellulitis to prevent worsening infection Quality Stroke Does the patient have a stroke diagnosis?: No VTE Prior VTE?: No VTE Risk Level:: Medical - moderate - high VTE Device Contraindication: Treatment Not Indicated VTE Drug Contraindication: N/A - Med Ordered
[2023-06-16 14:00] LABS: Vancomycin Random 24.1 mcg/mL (15-20)
--- NOTE | 2023-06-16 14:10 | HE.PHANOTE ---
RE VANCO DOSE DUE TO CHANGE IN RENAL FUNCTION AND HIGH TROUGH WILL CHANGE DOSE TO 1250 Q12 STARTING TONIGHT @2000. WILL ALSO RECHECK LEVEL TOMORROW BEFORE NEXT DOSE TO ENSURE CONTINUED DECREASE IN VANCO LEVEL AND CONTINUE DAILY MONITORING OF RENAL FUNCTION.
--- NOTE | 2023-06-16 16:24 | PC.NURSE ---
Samm Tariq made aware pt reports increased pain and swelling in scrotum and penis, area edematous and red. Encouraged patient to elevate scrotum. PRN Dilaudid given with mild effect and PRN oxycodone frequency increased per PA orders.
[2023-06-16 16:32] LABS: Glucose, Whole Blood 132 mg/dL (60-115)
[2023-06-16] MEDS: vancomycin HCL 1,250 MG in 0.9 % Sodium Chloride 250 ML 166.67 MG IV (19:45)
[2023-06-16 20:26] LABS: Glucose, Whole Blood 139 mg/dL (60-115)
[2023-06-17] MEDS: oxyCODONE HCl Immed Release 5 MG TABLET PO ×2 (01:01→11:31)
[2023-06-17 03:12] VITALS: BP 137/64; PULSE 83; RESP 20; TEMP 36.3; O2SAT 93
[2023-06-17] MEDS: HYDROmorphone HCl 1 MG/ML SYRINGE 0.8 MG IVPUSH ×3 (03:26→12:40)
[2023-06-17] MEDS: Piperacillin Sodium/Tazobactam 3.375 GM in 0.9 % Sodium Chloride 50 ML IV ×2 (03:30→09:27)
[2023-06-17 06:23] LABS: Vancomycin Random 14.5 mcg/mL (15-20)
[2023-06-17 06:24] LABS: Anion Gap 11 (12-20); Blood Urea Nitrogen 7 mg/dL (9-16); Calcium 8.3 mg/dL (8.4-10.2); Carbon Dioxide 26 mmol/L (22-29); Chloride 102 mmol/L (96-108); Creatinine Clr Calc Pharmacy 125.8; Estimated Glomerular Filt Rate > 60; Glucose Random 106 mg/dL (60-115); Potassium 3.4 mmol/L (3.3-5.1); Sodium 136 mmol/L (135-145)
[2023-06-17 07:39] VITALS: BP 156/81; PULSE 85; RESP 20; TEMP 36.6; O2SAT 96
[2023-06-17 07:47] LABS: Glucose, Whole Blood 108 mg/dL (60-115)
[2023-06-17] MEDS: vancomycin HCL 1,250 MG in 0.9 % Sodium Chloride 250 ML 166.67 MG IV (07:51)
[2023-06-17] MEDS: 0.9 % Sodium Chloride Flush 3 ML SYRINGE IVFLUSH (07:53)
--- NOTE | 2023-06-17 09:14 | HO.PM.IMPN ---
Subjective Subjective Date of Service: 06/17/23 Interval History: seen and examined this morning follow up for scrotal swelling and pain feels like swelling is worse Review of Systems Review of Systems: Yes all other systems are reviewed and are negative Constitutional Constitutional: Denies chills and Denies fever(s) Gastrointestinal Gastrointestinal: Denies abdominal pain, Denies nausea and Denies vomiting Physical Exam Vital Signs: Vital Signs: Last Vital Signs Temp 97.9 F 06/17/23 07:39 Pulse 85 06/17/23 07:39 Resp 20 06/17/23 07:39 BP 156/81 H 06/17/23 07:39 Pulse Ox 96 06/17/23 07:39 O2 Del Method Room Air 06/17/23 07:39 O2 Flow Rate 2 06/13/23 15:21 BMI result Body Mass Index 37.5 Appearing in no acute distress lung sounds are clear to auscultation heart regular rate rhythm, clear S1, S2 positive bowel sounds, abdomen is soft, nontender neuro patient is alert x3, no focal deficits Objective Data Active Medications Acetaminophen (Acetaminophen 325 Mg Tablet) 650 mg PO Q6H PRN PRN Reason: Pain, Mild (Pain Scale 1-3) Last Admin: 06/16/23 12:01 Dose: 650 mg Documented By: JERUSIBairon Benzonatate (Benzonatate 100 Mg Capsule) 100 mg PO TID PRN PRN Reason: Cough Dextrose (Dextrose 50 % 25 Gm/50 Ml Syringe) 25 gm IVPUSH Q15M PRN; Protocol PRN Reason: per Hypoglycemia Standing Ord. Docusate Sodium (Docusate Sodium 100 Mg Capsule) 100 mg PO DAILY PRN PRN Reason: Constipation Glucose (Glucose Gel 15 Gm Gel..Gram.) 15 gm PO Q15M PRN; Protocol PRN Reason: per Hypoglycemia Standing Ord. Hydromorphone HCl (Hydromorphone Hcl 1 Mg/Ml Syringe) 0.8 mg IVPUSH Q4H PRN; Protocol PRN Reason: Pain, Severe (Pain Scale 7-10) Last Admin: 06/17/23 07:49 Dose: 0.8 mg Documented By: ABELINO Piperacillin Sod/Tazobactam (Sod 3.375 gm/ Sodium Chloride) 50 mls @ 100 mls/hr IV Q6H [facility] Last Infusion: 06/17/23 04:00 Dose: Infused Documented By: STANISLAV Vancomycin HCl 1,250 mg/ (Sodium Chloride) 250 mls @ 166.667 mls/hr IV Q12H [facility] Last Admin: 06/17/23 07:51 Dose: 166.67 mls/hr Documented By: ABELINO Insulin Glargine (Insulin Glargine,Hum.Rec.Anlog 100 Unit/Ml 10 Ml Vial) 10 unit SUBCUT DAILY [facility] Last Admin: 06/16/23 07:45 Dose: 10 unit Documented By: DARWIN Insulin Human Lispro (Insulin Lispro 100 Unit/Ml 3 Ml Vial) 0 unit SUBCUT QIDACHS [facility]; Protocol Last Admin: 06/17/23 07:44 Dose: Not Given Documented By: ABELINO Non-Admin Reason: No Insulin Coverage Melatonin (Melatonin 3 Mg Tablet) 6 mg PO BEDTIME PRN PRN Reason: Insomnia Last Admin: 06/13/23 23:29 Dose: 6 mg Documented By: MARKO Ondansetron HCl (Ondansetron Hcl 4 Mg/2 Ml Vial) 4 mg IVPUSH Q8H PRN PRN Reason: Nausea and Vomiting Oxycodone HCl (Oxycodone Hcl Immed Release 5 Mg Tablet) 5 mg PO Q4H PRN PRN Reason: Pain, Moderate(Pain Scale 4-6) Last Admin: 06/17/23 01:01 Dose: 5 mg Documented By: STANISLAV Pharmacy Consult (Consult Rx Vancomycin Dosing) 1 each MISCELLANE DAILY PRN PRN Reason: Consult order Sodium Chloride (0.9 % Sodium Chloride Flush 3 Ml Syringe) 3 ml IVFLUSH QSHIFT [facility] Last Admin: 06/17/23 07:53 Dose: 3 ml Documented By: ABELINO Labs 06/16/23 05:36 06/17/23 06:00 Labs: Laboratory Results - last 24 hr 06/16/23 06/16/23 06/16/23 11:03 13:36 16:20 Hold Purple Top Anion Gap Estim Creat Clear Calc Estimated GFR POC Glucose 181 H 132 H Random Glucose Calcium Random Vancomycin 24.1 H 06/16/23 06/17/23 06/17/23 20:17 06:00 07:41 Hold Purple Top SEE NOTE Anion Gap 11 L Estim Creat Clear Calc 125.8 Estimated GFR > 60 POC Glucose 139 H 108 Random Glucose 106 Calcium 8.3 L Random Vancomycin 14.5 L Assessment and Plan (1) Diabetes mellitus, new onset: Status: Acute (2) Cellulitis of scrotum: Status: Acute Plan 38-year-old male with 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 who presents to the ED for evaluation of painful and swollen right scrotum x2 days found to have new onset diabetes and scrotal cellulitis Scrotal cellulitis due to uncontrolled diabetes also has history of hidradenitis suppurativa no evidence of abscess on CT of pelvis no evidence of sepsis Continue IV vancomycin and Zosyn, started 06/13/2023 Blood cultures negative to date scrotal US - showing scrotal wall thickening no fluid collection, small right hydrocele; microlithiasis associated with right testicle with group b strep scrotal cx urology following - will re-evaluate today General surgery following New onset type 2 diabetes A1c 10.0 blood sugars improving continue diabetic diet continue Lantus, titrate prn continue sliding scale and follow POCs closely WHIT encourage po intake will hold off on IVF for now to prevent increase in scrotal swelling follow renal function pseudohyponatremia due to hyperglycemia. resolved Hypomagnesemia improved with replacement Transaminitis possibly due to fatty liver vs etoh use - pt denies daily use of alcohol LFTs trending down hepatitis screen negative thrombocytopenia ?due to liver disease/etoh vs abx vs acute illness platelets stable uncontrolled blood pressure pt has had a few high blood pressure readings possibly due to pain CIWA low, less likely r/t etoh withdrawal will follow bp closely Full Code Attending:?Dr. Price DVT Prophylaxis: Pneumatic boots continue hospital stay for scrotal cellulitis and new onset diabetes type 2 requiring IV antibiotics and specialist evaluation, close monitoring of cellulitis to prevent worsening infection Quality Stroke Does the patient have a stroke diagnosis?: No VTE Prior VTE?: No VTE Risk Level:: Medical - moderate - high VTE Device Contraindication: Treatment Not Indicated VTE Drug Contraindication: N/A - Med Ordered
[2023-06-17] MEDS: Insulin Glargine,Hum.rec.anlog 100 UNIT/ML 10 ML VIAL 10 UNIT SUBCUT (09:27)
[2023-06-17 11:22] LABS: Glucose, Whole Blood 107 mg/dL (60-115)
--- NOTE | 2023-06-17 11:34 | HO.WOUND ---
Wound Consult: Initial 38yr old?Male admitted to [facility] on 06/13/23 - See progress notes and H&P for detailed history.? Wound consult placed for Right Scrotal wound.? Patient agreeable to assessment and photo documentation.? Right Scrotum Etiology: ?Cellulitis Measurements: 0.2cm x 0.2cm x 0.1cm Wound Bed: moist pink wound bed Drainage / Odor: yellow drainage noted in periwound Edges: ? attached Carol wound: Redness, significant swelling and firm Induration,No Fluctuance or Warmth noted Pain: Patient reports significant discomfort and anxiety Goals of Treatment: ? Continue to treat systemically and moist wound care with barrier cream and xeroform - elevate with scrotal sling to aid in swelling management Recommendations: 1. Provide adequate and supplemental nutrition.? 2. Maintain blood glucose levels per Providers order. 3. Scrotum - Cleanse with NS or Willie Harwood to entire scrotum - apply small amount of barrier cream to scrotum, cover open wound with xeroform and ABD pad. Apply Scrotal Sling (available from storeroom) to aid in swelling management for scrotum. Apply xeroform daily. Re-consult wound care Nurse for wound deterioration or wound changes.
--- NOTE | 2023-06-17 11:46 | MHC.CM.PN ---
Addendum entered by Lorena Joshi RN 06/17/23 15:16: After patient dc'd rec'd call from [facility] reporting patient had not seen PCP in ~2 years and PCP's office is unable to sign orders. Hospitalist and patient updated that patient is not eligible for [facility]NA services. Patient will call PCP today to schedule a visit. Feels comfortable with family support for POC/insulin. Addendum entered by Lorena Joshi RN 06/17/23 14:58: Per wound nurse, patient will independently manage wound care. Addendum entered by Lorena Joshi RN 06/17/23 14:57: Per SERVICE DEPARTMENT MANAGER patient medically cleared for dc home w/ new [facility] for diabetic teaching. [facility] is aware of dc and will see patient on 06/18, SERVICE DEPARTMENT MANAGER aware. Patient has own ride home. Original Note: EMR REVIEWED. PER MD ROUND PATIENT IS NOT MEDICALLY CLEARED FOR DC. AWAITING UROLOGY AND ID INPUT. CM WILL CONTINUE TO FOLLOW.
--- NOTE | 2023-06-17 11:55 | PC.NURSE ---
On 06/14/23 t/w pulled dilaudid PRN dose 0.5mg IVP at 1328 and administered immediately after. Reassessed pain at 1358 as 10. pt stated some effectiveness.
--- NOTE | 2023-06-17 14:42 | PM.DS ---
DS: Providers Provider Date of Service: 06/17/23 Date of admission: 06/13/23 13:17 Primary care physician: Dewayne Paul MD Consults: 06/13/23 13:12 Consult to General Surgery Routine Consulting Provider: [facility] – [place] General Surgeons Reason for consultation: Recent suprapubic abscess, now draining testicular lesion, CT ?fistula Consult to Urology Routine Consulting Provider: Tyson Robin Reason for consultation: Scrotal pain/edema, right hydrocele 06/13/23 15:28 Addiction Medicine Routine Consulting Provider: Addiction Covering Reason for consultation: Possible alcohol use disorder, remote hx of heroin use 06/16/23 01:18 Consult to Wound Care Routine Reason for consultation: cellulitis to scrotom, open area right side scrotom Has provider been notified: Yes 06/17/23 09:12 Consult to Infectious Diseases Routine Consulting Provider: [facility] – [place] Infectious Disease Reason for consultation: skin abscess DS: Diagnosis Discharge Diagnosis (1) Diabetes mellitus, new onset: Status: Acute (2) Cellulitis of scrotum: Status: Acute DS: Summary Hospital Course Hospital Course: HP as per admitting provider. 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 Pt reports he was recently treated for a suprapubic cyst that appeared 7-8 months ago. Was painful and occasionally draining but did not seek medical care until last month on 04/26/2023. In ED brown-colored discharge was noted from area but pt refused additional workup and imaging to evaluate for fistula. Was discharged on 14-day course of cephalexin and doxycycline which was completed on 05/10/2023. Two days ago pt noted a similar cyst on his right scrotum that was painful and red. Attempted to drain the cyst with a needle but was unsuccessful. Reports cyst just popped and drained serosanguineous while sitting in hospital bed 20 minutes prior to interview and exam. Experiecned subjective fever and shaking chills, some nausea, and feeling dizzy and delirious. No chest pain/pressure, palpitations. Denies SOB. He denies any previous diagnosis of hidradenitis suppurativa, but states he has been getting similar small cyst-like masses for the past 8-9 months in axilla, groin, inner thigh, and buttock area. Has a remote hx of snorting heroin; denies IVDU and reprots being clean for past 9 years. Admits to drinking socially , perhaps a couple of beers every other day. Denies abdominal pain. In the ED pt was tachycardic up to 121 with elevated temperature of 99.6 degrees, and initially hypertensive up to 163/93, satting as low as 90% on RA. Labs were significant for sodium 131, random glucose 359, A1c 10.0, lactic acid 3.2 magnesium 1.5, bilirubin 2.2, AST 175, ALT 135, alk-phos 127. No leukocytosis. Beta hydroxybutyrate 0.53. Anion gap WNL at 17. Tested negative for flu, COVID, RSV. CXR showed no acute intrathoracic disease. CT?of pelvis found edema/inflammation of right hemiscrotum presence of right hydrocele, but no evidence of abscess or soft tissue gas. Also small curvilinear tract in superficial subcutaneous tissue lower abdominal wall. Pt was treated with Dilaudid, ondansetron, IVF, vanco, and Zosyn. Pt will be admitted to the hospital for treatment and further and evaluation of testicular cellulitis/abscess as well as new-onset uncontrolled type 2 diabetes. 38-year-old man treated for scrotal cellulitis likely secondary to uncontrolled diabetes and hidradenitis suppurative. No evidence of abscess on CT of pelvis. Seen and evaluated by Urology with no further recommendation for treatment needed. Scrotal edema should reduce the next several days. Blood cultures negative. Patient treated with IV vancomycin and Zosyn. Discussed with ID, will continue clindamycin 450 mg t.i.d. for 7 days. Patient is to follow-up with Dermatology outpatient for further management of hidradenitis provider. New onset diabetes mellitus type 2. Treated with insulin sliding scale and Lantus during inpatient. A1c 10.0. Patient to continue insulin sliding scale at home, checking blood sugars before meals and at bedtime and administer insulin as per sliding scale. Also to take Lantus 10 units at bedtime. He is to document his blood sugars and share with his primary care provider for management of these medications. Obesity. BMI 37.5 Discussed importance of weight management as this may be contributing to worsening of other comorbidities Transaminitis. Likely due to alcohol use. Trended down. Hypomagnesemia. Improved with replacement Pseudohyponatremia. Secondary to hyperglycemia Time Attestation Discharge Coordination Time (in mins): 36 Quality: Safe Use of Opioids Does Pt have an Active Cancer Diagnosis on the Problem List?: No Quality: Stroke Does the patient have a stroke diagnosis?: No Physical Exam Vital Signs: Vital Signs: Last Vital Signs Temp 97.9 F 06/17/23 07:39 Pulse 85 06/17/23 07:39 Resp 20 06/17/23 07:39 BP 156/81 H 06/17/23 07:39 Pulse Ox 96 06/17/23 07:39 O2 Del Method Room Air 06/17/23 07:39 O2 Flow Rate 2 06/13/23 15:21 BMI result Body Mass Index 37.5 Appearing in no acute distress head is normocephalic atraumatic eyes pupils are PERRLA sclera is anicteric mouth throat mucous membranes are intact and moist neck is supple no lymphadenopathy, no JVD noted lung sounds are clear to auscultation heart regular rate rhythm, clear S1, S2 positive bowel sounds, abdomen is soft, nontender neuro patient is alert x3, no focal deficits chronic edema to bilateral LE Scrotal edema, no ipen sores or wounds DS: Data Data Completed and Pending Labs on day of discharge: Laboratory Results - last 24 hr 06/16/23 06/16/23 06/17/23 16:20 20:17 06:00 Hold Purple Top SEE NOTE Sodium 136 Potassium 3.4 Chloride 102 Carbon Dioxide 26 Anion Gap 11 L BUN 7 L Creatinine 1.10 Estim Creat Clear Calc 125.8 Estimated GFR > 60 POC Glucose 132 H 139 H Random Glucose 106 Calcium 8.3 L Random Vancomycin 14.5 L 06/17/23 06/17/23 07:41 11:15 Hold Purple Top Sodium Potassium Chloride Carbon Dioxide Anion Gap BUN Creatinine Estim Creat Clear Calc Estimated GFR POC Glucose 108 107 Random Glucose Calcium Random Vancomycin Preliminary micro results at discharge 06/13/23 09:45 Blood Culture - Preliminary Blood - Venous No growth after 48 hours. 06/13/23 09:45 Blood Culture - Preliminary Blood - Venous No growth after 48 hours. Discharge Plan Discharge Anticipated Discharge Date/Time: 06/17/23 14:12 Patient Disposition: Home Health Service Discharge Diagnosis: Scrotal cellulitis Hidradenitis suppurativa Group B streptococcus Referrals: Dewayne Paul MD [Primary Care Provider] - 1 Week Discharge Medications: New (DME) FreeStyle Lite Strips Strip Qty: 100 0RF Rx Instructions: Test four times a day or as directed. (DME) blood-glucose meter [FreeStyle Lite Meter] Kit Qty: 1 0RF Rx Instructions: As Directed alcohol swabs Pads, Medicated 1 pad TOPICAL QIDACHS Qty: 100 0RF Rx Instructions: Use four times a day or as directed. insulin lispro [Humalog KwikPen Insulin] 100 unit/mL insulin pen 0 sliding scale dose SUBCUT QIDACHS Qty: 15 0RF Rx Instructions: Blood Sugar: <150 - 0 units 151-200 - 2 units 201-250 - 4 units 251-300 - 6 units 301-350 - 8 units >350 - 10 units insulin glargine [Lantus Solostar U-100 Insulin] 100 unit/mL (3 mL) insulin pen 10 unit SUBCUT DAILY Qty: 15 0RF (DME) pen needle, diabetic 32 gauge x 1/4 needle Qty: 100 0RF Rx Instructions: Use four times a day or as directed. (DME) lancets [FreeStyle Lancets] 28 gauge misc Qty: 100 0RF Rx Instructions: Test four times a day or as directed. oxycodone 5 mg tablet 5 mg PO TID PRN (Reason: pain) Qty: 9 0RF Rx Instructions: Partial Fill upon patient request. clindamycin HCl [Cleocin HCl] 300 mg capsule 450 mg PO TID Qty: 21 0RF Discharge Orders: Discharge Order (Routine); Ordered 06/17/23 Ordered By: Rosy Macias Diet: Advance to usual diet Activity on Discharge: As tolerated Stand Alone Forms: Patient Portal Discharge page Care Plan Goals: -Follow up with dermatology provider for further management of Hidradenitis suppurativa -You have been started on new medications for diabetes mellitus, please take as prescribed -Check blood sugar before meals and at bedtime. Administer insulin as per sliding scale, take Lantus 10 units (long acting insulin) at bedtime -Document your blood sugars to share with your primary doctor for management of diabetic medications Health Concerns: Scrotal cellulitis Hidradenitis suppurativa Group B streptococcus Plan of Treatment: Follow-up with primary care provider within 1-2 weeks Take all medications as prescribed Assessment: See discharge summary
--- NOTE | 2023-06-17 15:05 | W.MHC.F2F ---
Service Date Service Date: 06/17/23 Encounter Date of encounter: 06/17/23 Reasons for Services Signs and symptoms assessed: New onset diabetes mellitus scrotal edema and cellulitis Reason for long term: CV/CP assess and/or care and diabetic teaching Homebound: Leaving the home is medically contraindicated at this time without the asist of a device and/or another person due th the listed conditions above and below. Reason homebound: other (scrotal pain ) Certification: Based on the above findings, I certify that this patient is confined to the home and needs intermittent long term care, physical therapy and/or speech therapy, or continues to need occupational therapy. The patient is under my care, and I have initiated the establishment of the plan of care. The patient will be followed by a physician who will periodically review the plan of care. Time Spent With Patient Time: Total time managing care of this patient today ____ minutes.
[2023-06-17 15:08] LABS: Glucose, Whole Blood 104 mg/dL (60-115)
== END 2023-06-17 15:07 | disposition home or self-care (01) | DRG 420 ==
LOC: HO.ED 09:53 → HO.EDOVER 13:26 → HO.S3 16:42
PROVIDERS: Hospitalist; Physician Assistant Medical; Admitting Provider Student in an Organized Health Care Education/Training Program; Emergency Provider Emergency Medicine; PCP Internal Medicine; Visit Provider Nurse Practitioner Acute Care
DX: E11.628 Type 2 diabetes mellitus with other skin complications (principal); N17.9 Acute kidney failure, unspecified; D69.59 Other secondary thrombocytopenia; K76.0 Fatty (change of) liver, not elsewhere classified; E11.65 Type 2 diabetes mellitus with hyperglycemia; B95.1 Streptococcus, group B, as the cause of diseases classified elsewhere; E66.3 Overweight; E83.42 Hypomagnesemia; F17.210 Nicotine dependence, cigarettes, uncomplicated; N43.3 Hydrocele, unspecified; L73.2 Hidradenitis suppurativa; N49.2 Inflammatory disorders of scrotum; I10 Essential (primary) hypertension; Z68.37 Body mass index [BMI] 37.0-37.9, adult; Z20.822 Contact with and (suspected) exposure to COVID-19; Z71.6 Tobacco abuse counseling; Z79.899 Other long term (current) drug therapy
CPT/HCPCS: 0241U; 36415; 71045; 72193; 76870; 80048; 80053; 80076; 80202; 81001; 82010; 82947; 83036; 83605; 83735; 85025; 85027; 86704; 86706; 86709; 86803; 87040; 87070; 87147; 87205; 87340; 99285; J1170; J1650; J1885; J2270; J2405; J2543; J3370; J3371; J3475; J7120; Q9967

== ENCOUNTER → 2023-06-13 13:17 | Outpatient (BNV) | payer OTHER, SELFPAY | PROVIDERS: Admitting Provider Student in an Organized Health Care Education/Training Program; Emergency Provider Emergency Medicine; PCP Internal Medicine; Visit Provider Student in an Organized Health Care Education/Training Program | DX: E11.9 Type 2 diabetes mellitus without complications (principal); N49.2 Inflammatory disorders of scrotum | CPT/HCPCS: 99223; 99232; 99233; 99239; G0180 ==

== ENCOUNTER → 2023-06-13 13:17 | Outpatient (BNV) | payer OTHER, SELFPAY | PROVIDERS: Admitting Provider Student in an Organized Health Care Education/Training Program; Emergency Provider Emergency Medicine; PCP Internal Medicine; Visit Provider Surgery | DX: N49.2 Inflammatory disorders of scrotum (principal) | CPT/HCPCS: 99223; 99231 ==

== ENCOUNTER → 2023-06-13 13:17 | Outpatient (BNV) | payer OTHER, SELFPAY | PROVIDERS: Admitting Provider Student in an Organized Health Care Education/Training Program; Emergency Provider Emergency Medicine; PCP Internal Medicine; Visit Provider Urology | DX: E11.9 Type 2 diabetes mellitus without complications (principal); N49.2 Inflammatory disorders of scrotum | CPT/HCPCS: 99222; 99231 ==

== ENCOUNTER 2023-06-20 11:09 | Outpatient (REF) | payer OTHER, SELFPAY ==
[2023-06-20 13:27] LABS: Basophils Absolute Auto 0.1 X10*3/uL (0.0-0.2); Basophils Percent Auto 1.4 % (0-2); Eosinophils Absolute Auto 0.3 X10*3/uL (0.0-0.4); Eosinophils Percent Auto 3.2 % (0-4); Hematocrit 41.7 % (42.0-52.0); Hemoglobin 14.4 g/dl (14.0-18.0); Imm Gran Abs Auto 0.08 X10*3/uL (0.00-0.03); Imm Gran Pct Auto 0.9 % (0.0-0.4); Lymphocytes Absolute Auto 1.7 X10*3/uL (1.2-4.9); Lymphocytes Percent Auto 18.4 % (20-40); MANUAL DIFF FLAG SCAN; Mean Corpuscular HGB Conc 34.5 g/dl (31.0-36.0); Mean Corpuscular Hemoglobin 33.2 pg (27.0-33.0); Mean Corpuscular Volume 96.1 fL (80.0-98.0); Mean Platelet Volume 10.9 fL (9.4-12.4); Monocytes Absolute Auto 1.9 X10*3/uL (0.1-1.2); Neutrophils Absolute Auto 5.3 x10*3/uL (2.0-8.3); Neutrophils Percent Auto 56.1 % (45-73); Platelet Count 182 X10*3/uL (160-400); Red Blood Count 4.34 X10*6/uL (4.60-5.80); Red Cell Distribution Width 12.2 % (11.0-16.0); SCAN SMEAR FLAG 1; White Blood Count 9.4 X10*3/uL (4.8-10.8)
[2023-06-20 13:47] LABS: SLIDE REVIEW VERIFIED
[2023-06-20 13:57] LABS: Estimated Average Glucose 220 mg/dL; Hemoglobin A1c % 9.3 % (<6.0)
[2023-06-20 14:07] LABS: Alanine Aminotransferase 72 U/L (0-40); Albumin Level 3.1 g/dL (3.5-5.0); Alkaline Phosphatase 120 U/L (39-117); Anion Gap 17 (12-20); Aspartate Amino Transferase 132 U/L (5-37); Bilirubin Total 1.2 mg/dL (0.0-1.0); Blood Urea Nitrogen 4 mg/dL (9-16); Calcium 9.9 mg/dL (8.4-10.2); Carbon Dioxide 27 mmol/L (22-29); Chloride 99 mmol/L (96-108); Estimated Glomerular Filt Rate > 60; Glucose Random 197 mg/dL (60-115); Potassium 3.5 mmol/L (3.3-5.1); Sodium 139 mmol/L (135-145); Total Protein 8.1 g/dL (6.5-8.0)
[2023-06-20 14:08] LABS: Free T4 (Free Thyroxine) 0.84 ng/dL (0.71-1.85); Thyroid Stimulating Hormone 3.15 uIU/mL (0.32-4.0)
== END 2023-06-20 11:10 | disposition home or self-care (01) ==
LOC: HO.10HDL 11:09
PROVIDERS: Visit Provider Internal Medicine
DX: L03.90 Cellulitis, unspecified (principal); E11.9 Type 2 diabetes mellitus without complications; I10 Essential (primary) hypertension; R60.9 Edema, unspecified
CPT/HCPCS: 36415; 80053; 83036; 84439; 84443; 85025

== ENCOUNTER 2023-06-26 10:44 | Outpatient (REF) | payer OTHER, SELFPAY | END 2023-06-26 10:45 | disposition home or self-care (01) | LOC: HO.HOSX 10:44 | PROVIDERS: Visit Provider Physician Assistant | DX: Z13.89 Encounter for screening for other disorder (principal) ==

== ENCOUNTER 2024-08-06 18:02 | Emergency (ER) | payer OTHER, SELFPAY | END 2024-08-06 19:04 | disposition left against medical advice (07) | PROVIDERS: Emergency Provider Emergency Medicine | DX: Z53.21 Procedure and treatment not carried out due to patient leaving prior to being seen by health care provider (principal) ==